=== PATIENT | female | born 1965 | race Caucasian/White ===

== ENCOUNTER → 2017-01-08 | Outpatient (CLI) | payer MEDICARE, MEDICAID ==
[~2017-01-08] MED LIST: /ASCO250TA PO; /AUGM875TA OR; ALBUTEROL INH INH; AUGMENTIN PO; CALCTAB22 PO; COLA50CA3 PO; DRISDOL PO; DUONSOL INH; LISI10TA4 PO; PERCOCET PO; PRED10TA2 OR; PRED20TA OR; ZOCOR PO
--- NOTE | 2017-01-19 01:39 | ECWPNPC ---
PATIENT NAME: ED MORENO : 1965 GENDER: FEMALE VISIT DATE: 01/08/2017 DISCHARGE DATE: 01/08/17 1541 VISIT LOCKED DATE TIME: PHYSICIAN: LEONCIO SNYDER RESOURCE: LEONCIO SNYDER REASON FOR APPOINTMENT 1. BACK HISTORY OF PRESENT ILLNESS HISTORY OF PRESENT ILLNESS: HERE FOR 3 MOS. 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 FALL RISK SCREENING: SCREENING :NO FALLS IN THE PAST YEAR CURRENT MEDICATIONS TAKING ALEVE 220 MG TABLET 1 TABLET NEEDED ORALLY EVERY 12 HRS TAKING VITAMIN D 2000 UNIT TABLET 1 TABLET ORALLY ONCE A DAY TAKING INCRUSE ELLIPTA 62.5 MCG/INH AEROSOL POWDER BREATH ACTIVATED 1 PUFF INHALATION ONCE A DAY TAKING VENTOLIN HFA 90 MCG/ACT AEROSOL SOLUTION 2 PUFFS INHALATION ONCE A DAY TAKING ZYRTEC ALLERGY 10 MG TABLET 1 TABLET ORALLY ONCE A DAY TAKING TRAMADOL HCL 50 MG TABLET 1 TABLET NEEDED [id number] EVERY 8 HRS RIGHT SIDED ABD PAIN MDD3 TAKING ZOLOFT 25 MG TABLET 1 TABLET ORALLY ONCE A DAY TAKING SINGULAIR 10 MG TABLET 1 TABLET IN THE EVENING ORALLY ONCE A DAY TAKING ASPERCREME W/LIDOCAINE 4 % CREAM EXTERNALLY DIRECTED MEDICATION LIST REVIEWED AND RECONCILED WITH THE PATIENT PAST MEDICAL HISTORY HYPERTENSION COPD - FEV1=1.23/FVC = 1.94 PER PULMONARY 05/2014 TOBACCO USE HYPERLIPIDEMIA ANXIETY DEPRESSION ALLERGIC RHINITIS HX OF HERPES SIMPLEX II PAP/MAMMO-WTW UPTODATE VITAMIN D DEFICIENCY ALLERGIES AVELOX: HIVES: ALLERGY CIPRO: HIVES: ALLERGY SYMBICORT: THRUSH: SIDE EFFECTS SOMA: INSOMNIA: SIDE EFFECTS SOCIAL HISTORY GENERAL: TOBACCO USE ARE YOU A:NONSMOKER 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 NEW PATIENT PAIN DIARY TODAY'S VISITNOTES FROM 0-10, WHAT LEVEL IS YOUR PAIN TODAY?0 PAIN CLINIC PFS, CLERGY, PUBLIC HEALTH REFERRALS PFS REFERRAL NEEDED?NO CLERGY REFERRAL NEEDED?NO PUBLIC HEALTH REFERRAL NEEDED?NO WAS THE PROVIDER NOTIFIED OF ANY PERTINENT INFO?NO PFS REFERRAL NEEDED?NO CLERGY REFERRAL NEEDED?NO PUBLIC HEALTH REFERRAL NEEDED?NO WAS THE PROVIDER NOTIFIED OF ANY PERTINENT INFO?NO REVIEW OF SYSTEMS CONSTITUTIONAL: ANY CHANGE IN YOUR MEDICAL CONDITION? NO . RECENT ILLNESS DENIES . CHILLS NO . FEVER NO . WEIGHT LOSS DENIES . INFECTION: DO YOU HAVE NEW INFECTIONS? NO . DO YOU HAVE HISTORY OF MRSA? NO . MUSCULOSKELETAL: ANY NEW PATTERNS OF PAIN OR NUMBNESS? NO . GASTROENTEROLOGY: ANY NEW CHANGE IN BOWEL CONTROL? NO . GENITOURINARY: ANY NEW CHANGE IN BLADDER CONTROL? NO . IS THERE A CHANCE YOU COULD BE ? NO . HEMATOLOGY/LYMPH: DO YOU TAKE ANY BLOOD THINNERS? (FOR EXAMPLE- COUMADIN, PLAVIX, AGGRENOX, PLATEL, PRADAXA, OR XARELTO) NO . WHEN WAS YOUR LAST DOSE? DATE: TIME: . NEUROLOGY: HAVE YOU FALLEN IN THE PAST 6 MONTHS? NO . ANY NEW EXTREMITY NUMBNESS OR WEAKNESS? NO . CARDIOLOGY: DO YOU HAVE A PACEMAKER OR DEFIBRILLATOR? NO . CHEST PAIN DENIES . SHORTNESS OF BREATH DENIES . RESPIRATORY: HAVE YOU BEEN SICK IN THE PAST WEEK? NO . FEVER NO . FLU LIKE SYMPTOMS? NO . COUGH NO, DENIES . SHORTNESS OF BREATH DENIES . INTEGUMENTARY: DO YOU HAVE ANY RASHES OR OPEN SORES? NO . ALLERGIC/IMMUNO: ARE YOU ALLERGIC TO SHELLFISH OR IV DYE? NO . ANY NEW ALLERGIES? NO . PSYCHIATRIC: DO YOU HAVE THOUGHTS OF HURTING YOURSELF OR SOMEONE ELSE? NO . ARE YOU ABUSED, NEGLECTED, OR IN AN UNSAFE ENVIRONMENT? NO . ENDOCRINOLOGY: ARE YOU DIABETIC? NO . OTHER: DO YOU NEED ANY PRESCRIPTIONS? NO . IF YES, PLEASE LIST: ____ . ANY NEW PROBLEMS WITH YOUR MEDICATIONS? NO . WHEN DID YOU LAST EAT? ____ . WHEN DID YOU LAST DRINK? ____ . WHAT DID YOU LAST DRINK? ____ . NAME OF PERSON DRIVING YOU HOME? ____ . DO YOU HAVE ANY OTHER QUESTIONS OR CONCERNS NO . REVIEWED BY: PROVIDER: LEONCIO MASSEY . VITAL SIGNS WT 175.6 LBS, HT 60 IN, BMI 34.29 INDEX, BP 181/94 DINAMAP L ARM, REPEAT BP 156/97 MANUAL BP, HR 66 /MIN, RR 16 /MIN, TEMP 97.0 F, OXYGEN SAT % 98, NA INITIALS TL 1509, REVIEWED BY: CS. EXAMINATION GENERAL EXAMINATION: LUNGS:LUNG SOUNDS ARE CLEAR. HEART:HEART RATE REGULAR. MUSCULOSKELETAL:*, MUSCLE STRENGTH TESTING 5/5 BILATERAL LWER EXTREMITIES. PALPATION: NEGATIVE FOR PAIN OVER L/S SPINE. NEGATIVE FOR PAIN OVER L/S PARASPINALS. DIAGNOSTIC: . ASSESSMENTS RIGHT-SIDED ABDOMINAL PAIN OF UNKNOWN CAUSE - R10.9 (PRIMARY) MYOFASCIAL PAIN - M79.1 PROCEDURE CODES G8730 PAIN ASSESS POS TOOL F/U PLAN DOC G8427 DOC MEDS VERIFIED W/PT OR RE FOLLOW UP F/U IN APRIL ELECTRONICALLY SIGNED BY SHILPA SEE ON 01/13/2017 AT 01:17 PM EST DISCLAIMER : THIS IS A VISIT SUMMARY EXTRACTED FROM THE [employer] CHART. IT IS NOT A COPY OF THE [employer] PROGRESS NOTE. JERED
== END ==
LOC: M PAIN 15:00
PROVIDERS: ATTEND Nurse Practitioner Family
DX: Z09 Encounter for follow-up examination after completed treatment for conditions other than malignant neoplasm (principal); G89.29 Other chronic pain; R10.9 Unspecified abdominal pain; M79.1 Myalgia; I10 Essential (primary) hypertension; J44.9 Chronic obstructive pulmonary disease, unspecified; E78.5 Hyperlipidemia, unspecified; F41.9 Anxiety disorder, unspecified; F32.9 Major depressive disorder, single episode, unspecified; J30.89 Other allergic rhinitis; E55.9 Vitamin D deficiency, unspecified; Z88.8 Allergy status to other drugs, medicaments and biological substances; Z88.5 Allergy status to narcotic agent; Z79.1 Long term (current) use of non-steroidal anti-inflammatories (NSAID); Z79.899 Other long term (current) drug therapy; Z79.891 Long term (current) use of opiate analgesic; Z86.19 Personal history of other infectious and parasitic diseases; Z87.891 Personal history of nicotine dependence

== ENCOUNTER 2017-01-10 17:25 | Emergency (ER) | payer MEDICARE, MEDICAID ==
[2017-01-10 18:02] LABS: BASO % 0.6 % (0.0-1.0); EOS # 0.2 K/mm3 (0.0-0.50); EOS % 2.4 % (0.0-3.0); LARGE UNSTAINED CELL # 0.1 K/mm3 (0.0-0.4); LYMPH % 32.6 % (24.0-44.0); MEAN CORPUSCULAR HEMOGLOBIN 31.6 pg (27.0-33.0); MEAN CORPUSCULAR VOLUME 95.7 fl (80.0-96.0); MONO # 0.2 K/mm3 (0.0-0.8); MONO % 3.3 % (0.0-5.0); NEUTROPHILS # 3.6 K/mm3 (1.8-7.7); NEUTROPHILS % 59.2 % (36.0-66.0); PLATELET COUNT, AUTOMATED 237 k/mm3 (150-450); RED CELL DISTRIBUTION WIDTH 11.6 % (11.5-14.5); WHITE BLOOD COUNT 6.2 K/mm3 (4.0-10.0)
[2017-01-10 18:30] LABS: ANION GAP 5 MEQ/L (8-16); BLOOD UREA NITROGEN 9 MG/DL (7-18); CALCIUM LEVEL 8.9 MG/DL (8.5-10.1); CARBON DIOXIDE LEVEL 32 MEQ/L (21-32); CHLORIDE LEVEL 104 MEQ/L (98-107); CREATININE FOR GFR 0.76 MG/DL (0.55-1.02); GLOMERULAR FILTRATION RATE > 60.0 (>51); GLUCOSE, FASTING 97 MG/DL (70-105); POTASSIUM SERUM 4.3 MEQ/L (3.5-5.1); SODIUM LEVEL 141 MEQ/L (136-145)
[2017-01-10] MEDS ORDERED: LOSARTAN 25 MG TAB As Ordered ONE (19:18)
--- NOTE | 2017-01-10 22:03 | EDDOCDS ---
Nurse's Notes [facility] Name: Rachel Bermudez Age: 51 yrs Sex: Female : 1965 Arrival Date: 01/10/2017 Time: 17:25 Bed 15 Private MD: Sabra Wolfe PA-C Diagnosis: Essential (primary) hypertension Presentation: 01/10 17:32 Presenting complaint: Patient states: Seen by PCP yesterday instructed to check BP at mlb1 home 187/107 at home. Adult Sepsis Screening: The patient does not have new or worsening altered mentation. Patient's respiratory rate is less than 22. Systolic blood pressure is greater than 100. Patient has a qSOFA score of 0- Negative Sepsis Screen. Suicide/Homicide risk assessment- the patient denies having any suicidal and/or homicidal ideations and does not present with any other emotional, behavioral or mental health complaints. Status: Patient is not a guest services lead or dependent. Transition of care: patient was not received from another setting of care. 17:32 Acuity: LAUREN Level 3 mlb1 17:32 Method Of Arrival: Walkin/Carried/Asstd mlb1 Triage Assessment: 17:35 General: Appears in no apparent distress, Behavior is appropriate for age, cooperative. mlb1 Pain: Denies pain. Pt Declines HIV testing. Neurological: No deficits noted. Historical: - Allergies: Ciprofloxacin (Rash); - Home Meds: 1. Symbicort 80-4.5 mcg/actuation inhalation HFAA 2 puffs 2 times per day 2. ProAir HFA 90 mcg/actuation inhalation HFAA 2 puffs every 4-6 hours as needed 3. montelukast 10 mg oral tab 1 tab once daily 4. Incruse Ellipta 62.5 mcg/actuation inhalation dsdv 1 puff once daily 5. cetirizine 10 mg oral tab 1 tab once daily - PMHx: COPD; Depression; - PSHx: Cholecystectomy; Tubal ligation; - Social history: Smoking status: Patient uses tobacco products, heavy tobacco smoker. No barriers to communication noted, The patient speaks fluent Chinese, Speaks appropriately for age. - Family history: Not pertinent. - : The pt / caregiver states he / she is not on anticoagulants. Home medication list is obtained from the patient. - Exposure Risk Screening:: None identified. Screenin:59 Screening information is obtained from the patient. Fall risk: No risks identified. kc3 Assistance ADL's: requires no assistance with activities of daily living. Abuse/DV Screen: The patient / caregiver reports he/she is: not in a situation that causes fear, pain or injury. Nutritional screening: No deficits noted. home support is adequate. 22:01 Advance Directives: Currently, there is no health care proxy. There is no active DNR kas2 order. There is no living will. There is no Power of Molder Vacuum. Assessment: 17:55 General: Appears in no apparent distress, well nourished, Behavior is appropriate for ttb age, cooperative, pleasant. Neurological: Level of Consciousness is awake, alert. Respiratory: Airway is patent Respiratory effort is even, unlabored. 18:58 General: Appears in no apparent distress, comfortable, Behavior is appropriate for age, kc3 cooperative. Pain: Denies pain. Neurological: Level of Consciousness is awake, alert, obeys commands, Oriented to person, place, time. Respiratory: Airway is patent Respiratory effort is even, unlabored. Derm: Skin is pink, warm & dry. 19:01 General: Verbal report given by Kinsey Mccoy RN. Assumed care of patient at this time.. kas2 19:13 General: Appears in no apparent distress, comfortable, well nourished, well groomed, kas2 Behavior is appropriate for age, cooperative. Pain: Denies pain. Neurological: Level of Consciousness is awake, alert, obeys commands, Oriented to person, place, time. Cardiovascular: Capillary refill < 3 seconds Heart tones S1 S2 present Rhythm is sinus rhythm No ectopy. Respiratory: Airway is patent Respiratory effort is even, unlabored, Respiratory pattern is regular, symmetrical. Derm: Skin is intact, Skin is dry, Skin is pink, warm & dry. Skin temperature is warm. 20:28 General: Patient laying in bed with at bedside. Denies pain or discomfort at kas2 this time. No apparent distress noted. Appears comfortable. Call mcdonald within reach. Will continue to monitor.. 21:48 General: Appears in no apparent distress, comfortable, well nourished, well groomed, kas2 Behavior is appropriate for age, cooperative. Pain: Denies pain. Neurological: Level of Consciousness is awake, alert, Oriented to person, place, time. Cardiovascular: Rhythm is sinus rhythm No ectopy. Respiratory: Airway is patent Respiratory effort is even, unlabored, Respiratory pattern is regular, symmetrical. Derm: Skin is intact, Skin is dry, Skin is pink, warm & dry. Skin temperature is warm. Vital Signs: 17:26 BP 194 / 97; Pulse 69; Resp 16; Temp 98.0(O); Pulse Ox 97% on R/A; Weight 79.83 kg; dem1 Height 5 ft. 2 in. (157.48 cm); Pain 0/10; 17:47 BP 171 / 83 (auto/); ttb 17:49 Pulse 70 MON; Resp 18 S; Pulse Ox 98% on R/A; ttb 18:37 BP 152 / 88 (auto/); kc3 18:38 Pulse 60 MON; Pulse Ox 98% ; kc3 19:07 BP 136 / 82 (auto/); kas2 19:07 Pulse 62 MON; Pulse Ox 96% ; kas2 19:34 BP 199 / 107 (auto/); kas2 19:34 Pulse 68 MON; Pulse Ox 94% ; kas2 19:41 BP 184 / 102; Pulse 65; Resp 18; Pain 0/10; kas2 20:07 BP 187 / 93 (auto/); kas2 20:07 Pulse 66 MON; Pulse Ox 97% ; kas2 20:29 Resp 18; Temp 97.9(O); Pain 0/10; kas2 20:37 BP 198 / 94 (auto/); kas2 20:37 Pulse 64 MON; Pulse Ox 95% ; kas2 21:07 BP 184 / 91 (auto/); kas2 21:07 Pulse 60 MON; Pulse Ox 95% ; kas2 21:37 BP 175 / 91 (auto/); kas2 21:37 Pulse 68 MON; Pulse Ox 96% ; kas2 21:56 BP 156 / 83 (auto/); kas2 21:56 Pulse 68 MON; Pulse Ox 96% ; kas2 22:01 Resp 18; Temp 97.9(O); Pain 0/10; kas2 17:26 Body Mass Index 32.19 (79.83 kg, 157.48 cm) [facility] Vitals: 17:26 Log In Time: January 10, 2017 at 17:24. [facility] ED Course: 17:26 Patient visited by Lisa Copeland. [facility] 17:26 Sabra Wolfe is Private Physician. dem1 17:26 Patient moved to Waiting dem1 17:28 Patient moved to Pre RCE dem1 17:32 Patient visited by Denis Hollingsworth, RN. mlb1 17:33 Triage Initiated mlb1 17:35 Patient visited by Denis Hollingsworth, NICOLLE. mlb1 17:38 Kinsey Bender,RN is Primary Nurse. mlb1 17:38 Ismael Cruz MD is Attending Physician. ml 17:38 Patient moved to 15 mlb1 17:39 Patient visited by Ismael Cruz MD. ml 17:54 Inserted peripheral IV: 20gauge IV in right antecubital area and blood collected. ttb Patient tolerated the procedure well. Labs drawn. (by ED staff). 17:54 D-Dimer Quant Sent. ttb 17:54 MED Profile Sent. ttb 17:54 CBC with Diff Sent. ttb 17:55 Patient visited by Blossom Oneal RN. ttb 17:55 compliance monitor on. Pulse ox on. NIBP on. ttb 17:56 Patient visited by Matti Jamison PCA. jrd 17:56 EKG done. (by ED staff). Reviewed by Ismael Cruz MD. jrd 18:09 CARDIAC MARKER PANEL Sent. kc3 18:41 UA Sent. kc3 18:42 Patient visited by Kinsey Bender RN. kc3 18:59 The patient / caregiver is instructed regarding the plan of care and ED course. kc3 19:01 Sameera JallohRN is Primary Nurse. kas2 19:14 Patient visited by Sameera Jalloh RN. kas2 19:41 Patient visited by Sameera Jalloh RN. kas2 19:43 EKG done. (by ED staff). Reviewed by Natanael Marie DO. jmv 19:58 Attending Physician role handed off by Ismael Cruz MD mm11 19:58 Natanael Marie DO is Attending Physician. mm11 20:07 Primary Nurse role handed off by Kinsey Bender,NICOLLE sls1 20:13 [facility] Payment Agreement was scanned into [employer] and attached to record. zo 20:25 Patient visited by Natanael Marie DO. mm11 20:29 Patient visited by Sameera Jalloh RN. kas2 20:39 Patient visited by Sameera Jalloh RN. kas2 21:08 Patient visited by Natanael Marie DO. 11 21:13 Patient visited by Sameera Jalloh RN. [facility] 21:48 Patient visited by Sameera Jalloh RN. [facility] 21:50 Aidan Moreiar MD is Referral Physician. mm11 22:01 Discontinued IV bleeding controlled, pressure dressing applied, No redness/swelling at [facility] site. No procedures done that require assistance. Administered Medications: 19:19 Drug: Losartan 100 mg [losartan 25 mg tablet (4 tabs)] Route: PO; [facility] Order Results: Lab Order: CBC with Diff; SPEC'M 01/10/17 17:51 Test: WHITE BLOOD COUNT; Value: 6.2; Range: 4.0-10.0; Units: K/mm3; Status: F Test: RED BLOOD COUNT; Value: 4.73; Range: 4.00-5.40; Units: M/mm3; Status: F Test: HEMOGLOBIN; Value: 15.0; Range: 12.0-16.0; Units: g/dl; Status: F Test: HEMATOCRIT; Value: 45.3; Range: 36.0-47.0; Units: %; Status: F Test: MEAN CORPUSCULAR VOLUME; Value: 95.7; Range: 80.0-96.0; Units: fl; Status: F Test: MEAN CORPUSCULAR HEMOGLOBIN; Value: 31.6; Range: 27.0-33.0; Units: pg; Status: F Test: MEAN CORPUSCULAR HGB CONC; Value: 33.0; Range: 32.0-36.5; Units: g/dl; Status: F Test: RED CELL DISTRIBUTION WIDTH; Value: 11.6; Range: 11.5-14.5; Units: %; Status: F Test: PLATELET COUNT, AUTOMATED; Value: 237; Range: 150-450; Units: k/mm3; Status: F Test: NEUTROPHILS %; Value: 59.2; Range: 36.0-66.0; Units: %; Status: F Test: LYMPH %; Value: 32.6; Range: 24.0-44.0; Units: %; Status: F Test: MONO %; Value: 3.3; Range: 0.0-5.0; Units: %; Status: F Test: EOS %; Value: 2.4; Range: 0.0-3.0; Units: %; Status: F Test: BASO %; Value: 0.6; Range: 0.0-1.0; Units: %; Status: F Test: LARGE UNSTAINED CELL %; Value: 2.0; Range: 0.0-4.0; Units: %; Status: F Test: NEUTROPHILS #; Value: 3.6; Range: 1.8-7.7; Units: K/mm3; Status: F Test: LYMPH #; Value: 2.0; Range: 1.5-4.5; Units: K/mm3; Status: F Test: MONO #; Value: 0.2; Range: 0.0-0.8; Units: K/mm3; Status: F Test: EOS #; Value: 0.2; Range: 0.0-0.50; Units: K/mm3; Status: F Test: BASO #; Value: 0.0; Range: 0.0-0.2; Units: K/mm3; Status: F Test: LARGE UNSTAINED CELL #; Value: 0.1; Range: 0.0-0.4; Units: K/mm3; Status: F Lab Order: [facility]; [facility] 01/10/17 17:51 Test: GLUCOSE, FASTING; Value: 97; Range: 70-105; Units: MG/DL; Status: F Test: BLOOD UREA NITROGEN; Value: 9; Range: 7-18; Units: MG/DL; Status: F Test: CREATININE FOR GFR; Value: 0.76; Range: 0.55-1.02; Units: MG/DL; Status: F Test: GLOMERULAR FILTRATION RATE; Value: > 60.0; Range: >51; Status: F Test: SODIUM LEVEL; Value: 141; Range: 136-145; Units: MEQ/L; Status: F Test: POTASSIUM SERUM; Value: 4.3; Range: 3.5-5.1; Units: MEQ/L; Status: F Test: CHLORIDE LEVEL; Value: 104; Range: 98-107; Units: MEQ/L; Status: F Test: CARBON DIOXIDE LEVEL; Value: 32; Range: 21-32; Units: MEQ/L; Status: F Test: ANION GAP; Value: 5; Range: 8-16; Abnormal: Below low normal; Units: MEQ/L; Status: F Test: CALCIUM LEVEL; Value: 8.9; Range: 8.5-10.1; Units: MG/DL; Status: F Test Note: ; Units are mL/min/1.73 m2 Chronic Kidney Disease Staging per NKF: Stage I & II GFR >=60 Normal to Mildly Decreased Stage III GFR 30-59 Moderately Decreased Stage IV GFR 15-29 Severely Decreased Stage V GFR <15 Very Little GFR Left ESRD GFR <15 on OFFICE SPECIALIST Lab Order: UA; SPEC'M 01/10/17 18:39 Test: APPEARANCE, URINE; Value: HAZY; Range: CLEAR; Status: F Test: COLOR, URINE; Value: YELLOW; Range: YELLOW; Status: F Test: PH,URINE; Value: 6.0; Range: 5.0-9.0; Units: UNITS; Status: F Test: SPECIFIC GRAVITY URINE AUTO; Value: 1.005; Range: 1.002-1.035; Status: F Test: PROTEIN, URINE AUTO; Value: NEGATIVE; Range: NEGATIVE; Units: mg/dL; Status: F Test: GLUCOSE, URINE (UA) AUTO; Value: NEGATIVE; Range: NEGATIVE; Units: mg/dL; Status: F Test: KETONE, URINE AUTO; Value: NEGATIVE; Range: NEGATIVE; Units: mg/dL; Status: F Test: UROBILINOGEN, URINE AUTO; Value: 0.2; Range: 0.0-2.0; Units: mg/dL; Status: F Test: BILIRUBIN, URINE AUTO; Value: NEGATIVE; Range: NEGATIVE; Status: F Test: NITRITE, URINE AUTO; Value: NEGATIVE; Range: NEGATIVE; Status: F Test: LEUKOCYTE ESTERASE, URINE AUTO; Value: 2+; Range: NEGATIVE; Abnormal: Above high normal; Status: F Test: BLOOD, URINE BLOOD; Value: NEGATIVE; Range: NEGATIVE; Status: F Test: WBC, URINE AUTO; Value: 23; Range: 0-3; Abnormal: Above high normal; Units: /HPF; Status: F Test: RBC, URINE AUTO; Value: 6; Range: 0-3; Abnormal: Above high normal; Units: /HPF; Status: F Test: BACTERIA, URINE AUTO; Value: 2+; Range: NEGATIVE; Abnormal: Above high normal; Status: F Test: SQUAMOUS EPITHELIAL CELL UR AU; Value: 5; Range: 0-6; Units: /HPF; Status: F Test: HYALINE CAST, URINE AUTO; Value: 0; Range: 0-1; Units: /LPF; Status: F Lab Order: D-Dimer Quant; [facility] 01/10/17 17:51 Test: D-DIMER QUANT; Value: 309.3; Range: <500; Units: ng/ml; Status: F Lab Order: CARDIAC MARKER PANEL; [facility] 01/10/17 17:51 Test: CPK CREATINE PHOSPHOKINASE; Value: 108; Range: 26-192; Units: U/L; Status: F Test: CK-MB VALUE MASS; Value: 1.7; Range: 0.0-3.6; Units: NG/ML; Status: F Test: MB/CK RELATIVE INDEX; Value: 1.57; Range: < OR =4; Status: F Test: TROPONIN I; Value: < 0.02; Range: < 0.10; Units: NG/ML; Status: F Test Note: ; DIAGNOSIS CRITERIA MMB ng/ml Relative Index (RI) NON-AMI < or = 5 N/A [place] ZONE > 5 < or = 4 AMI > 5 > 4 Lab Order: CARDIAC INJURY PROFILE; [facility] 01/10/17 19:43 Test: CPK CREATINE PHOSPHOKINASE; Value: 121; Range: 26-192; Units: U/L; Status: F Test: CK-MB VALUE MASS; Value: 1.7; Range: 0.0-3.6; Units: NG/ML; Status: F Test: MB/CK RELATIVE INDEX; Value: 1.40; Range: < OR =4; Status: F Test Note: ; DIAGNOSIS CRITERIA MMB ng/ml Relative Index (RI) NON-AMI < or = 5 N/A M[place]LL[place] ZONE > 5 < or = 4 AMI > 5 > 4 Lab Order: TROPONIN; [facility] 01/10/17 19:43 Test: TROPONIN I; Value: < 0.02; Range: < 0.10; Units: NG/ML; Status: F Test Note: ; Troponin I Reference Interval for Siem[employer] Hall LOCI: 99th Percentile= 0.00-0.045 ng/ml Risk Stratification: <= 0.10 ng/ml Decreased Risk for Adverse Clinical Events. 0.10-1.50 ng/ml Increased Risk for Adverse Clinical Events. Evaluation of additional criterion and/or repeat testing in 2-6 hours is suggested to rule out myocardial damage. >= 1.50 ng/ml Indicative of Myocardial Injury. Outcome: 21:50 Discharge ordered by Provider. mm11 22:01 Discharge Assessment: patient administered narcotics - no. The following High Risk [facility] Discharge criteria are identified: None. Discharged to home ambulatory, with significant other. Condition: good Condition: stable Condition: improved. No special radiology studies were completed. Property :Personal belongings accompany Pt. 22:02 Patient left the ED. [facility] Signatures: Ismael Cruz MD MD ml Denis Hollingsworth, RN RN mlb1 Patricia Marina Matthew, DO DO mm11 Angi Medeiros RN RN sls1 Lisa Copeland1 Blossom Oneal RN RN ttb Matti Jamison, PRODUCTION MACHINE SHOP SUPERVISOR PRODUCTION MACHINE SHOP SUPERVISOR jrd Kinsey Bender,NICOLLE RN kc3 Sameera Jalloh,RN RN kas2 Louis Griffin, PRODUCTION MACHINE SHOP SUPERVISOR PRODUCTION MACHINE SHOP SUPERVISOR jmv Corrections: (The following items were deleted from the chart) 17:57 17:54 TROPONIN+LAB sent. ttb EDMS 17:57 17:54 CARDIAC INJURY PROFILE+LAB sent. ttb EDMS MTDD
--- NOTE | 2017-01-10 22:03 | EDDOCDS ---
Physician Documentation [facility] Name: Rachel Bermudez Age: 51 yrs Sex: Female : 1965 Arrival Date: 01/10/2017 Time: 17:25 Bed 15 Private MD: Sabra Wolfe PA-C Disposition: 01/10/17 21:50 Discharged to Home/Self Care. Impression: Essential (primary) hypertension. - Condition is Stable. - Discharge Instructions: Hypertension, Hypertension, [id number]. - Prescriptions for losartan 100 mg Oral tablet - take 1 tablet by ORAL route once daily; 20 tablet. - Medication Reconciliation, Local Pharmacy Hours form. - Follow up: Aidan Moreira MD; When: Call to arrange an appointment; Reason: Continuance of care. - Problem is new. - Symptoms have improved. - Notes: DR MOREIRA WANTS YOU TO CALL HIS OFFICE Thursday TO BE SET UP FOR AN APPOINTMENT. RETURN TO THE ED IF YOUR SYMPTOMS RETURN OR YOU DEVELOP NEW SYMPTOMS. Historical: - Allergies: Ciprofloxacin (Rash); - Home Meds: 1. Symbicort 80-4.5 mcg/actuation inhalation HFAA 2 puffs 2 times per day 2. ProAir HFA 90 mcg/actuation inhalation HFAA 2 puffs every 4-6 hours as needed 3. montelukast 10 mg oral tab 1 tab once daily 4. Incruse Ellipta 62.5 mcg/actuation inhalation dsdv 1 puff once daily 5. cetirizine 10 mg oral tab 1 tab once daily - PMHx: COPD; Depression; - PSHx: Cholecystectomy; Tubal ligation; - Social history: Smoking status: Patient uses tobacco products, heavy tobacco smoker. No barriers to communication noted, The patient speaks fluent Welsh, Speaks appropriately for age. - Family history: Not pertinent. - : The pt / caregiver states he / she is not on anticoagulants. Home medication list is obtained from the patient. - Exposure Risk Screening:: None identified. Vital Signs: 01/10 17:26 BP 194 / 97; Pulse 69; Resp 16; Temp 98.0(O); Pulse Ox 97% on R/A; Weight 79.83 kg / dem1 176 lbs; Height 5 ft. 2 in. (157.48 cm); Pain 0/10; 17:47 BP 171 / 83 (auto/); ttb 17:49 Pulse 70 MON; Resp 18 S; Pulse Ox 98% on R/A; ttb 18:37 BP 152 / 88 (auto/); kc3 18:38 Pulse 60 MON; Pulse Ox 98% ; kc3 19:07 BP 136 / 82 (auto/); kas2 19:07 Pulse 62 MON; Pulse Ox 96% ; kas2 19:34 BP 199 / 107 (auto/); kas2 19:34 Pulse 68 MON; Pulse Ox 94% ; kas2 19:41 BP 184 / 102; Pulse 65; Resp 18; Pain 0/10; kas2 20:07 BP 187 / 93 (auto/); kas2 20:07 Pulse 66 MON; Pulse Ox 97% ; kas2 20:29 Resp 18; Temp 97.9(O); Pain 0/10; kas2 20:37 BP 198 / 94 (auto/); kas2 20:37 Pulse 64 MON; Pulse Ox 95% ; kas2 21:07 BP 184 / 91 (auto/); kas2 21:07 Pulse 60 MON; Pulse Ox 95% ; kas2 21:37 BP 175 / 91 (auto/); kas2 21:37 Pulse 68 MON; Pulse Ox 96% ; kas2 21:56 BP 156 / 83 (auto/); kas2 21:56 Pulse 68 MON; Pulse Ox 96% ; kas2 22:01 Resp 18; Temp 97.9(O); Pain 0/10; kas2 17:26 Body Mass Index 32.19 (79.83 kg, 157.48 cm) dem1 MDM: 17:39 IV Saline Lock ordered. ml 17:39 Marketing And Communications Officer/Pulse Ox/q 15 min VS ordered. ml 17:39 Rhythm Strip to chart ordered. ml 17:40 CBC with Diff Ordered. EDMS 17:40 MED Profile Ordered. EDMS 17:40 UA Ordered. EDMS 17:40 ECG WITH READING ER PHYS+CARDIAG ordered. EDMS 17:47 D-Dimer Quant Ordered. EDMS 17:49 Chest, 2 View (pa\E\lat) Ordered. EDMS 17:57 CARDIAC MARKER PANEL Ordered. EDMS 19:08 MED Profile Reviewed. ml 19:08 UA Reviewed. ml 19:08 CBC with Diff Reviewed. ml 19:08 D-Dimer Quant Reviewed. ml 19:08 CARDIAC MARKER PANEL Reviewed. ml 19:13 Losartan 100 mg PO once ordered. ml 19:15 Repeat EKG (put time details section) ordered. ml 19:15 Redraw CIP &Troponin (put time in details section) ordered. ml 19:20 Financial registration complete. zo 19:28 Redraw CIP &Troponin (put time in details section) complete. jlm 19:28 Repeat EKG (put time details section) complete. jlm 19:28 CARDIAC INJURY PROFILE Ordered. EDMS 19:28 TROPONIN Ordered. EDMS 19:29 ELECTROCARDIOGRAM ADULT ordered. EDMS 20:13 [facility] Payment Agreement was scanned into [employer] and attached to record. zo 20:58 CARDIAC INJURY PROFILE Reviewed. mm11 20:58 TROPONIN Reviewed. mm11 Administered Medications: 19:19 Drug: Losartan 100 mg [losartan 25 mg tablet (4 tabs)] Route: PO; kas2 Signatures: Dispatcher [employer] EDMS Ismael Cruz MD MD ml Denis Hollingsworth RN RN mlb1 Patricia Marina Matthew, DO mm11 Leonor Patel, Student Development Dean Unit jlm Kinsey Bender RN RN kc3 Sameera Jalloh RN RN kas2 The chart was reviewed and I authenticate all verbal orders and agree with the evaluation and treatment provided.Corrections: (The following items were deleted from the chart) 17:57 17:47 CARDIAC INJURY PROFILE+LAB ordered. EDMS EDMS 17:57 17:47 TROPONIN+LAB ordered. EDMS EDMS Attachments: 20:13 [facility] Payment Agreement zo MTDD
--- NOTE | 2017-01-11 06:34 | ECGEPIP ---
Stationary ECG Study [facility] - ED Test Date: 2017-01-10 Pat Name: ED MORENO Department: Room: - Gender: F Weeder: oscar : 1965 Requested By: Ismael Cruz Order Number: [id number] Reading MD: Ismael Cruz Measurements Intervals [place] Rate: 70 P: 75 IL: 155 QRS: 51 QRSD: 74 T: 67 QT: 365 QTc: 395 Interpretive Statements SINUS RHYTHM NONSPECIFIC T-WAVE ABNORMALITY DELAYED R WAVE PROGRESSION 04/22/13 - RATE INCREASED NONSPECIFIC ST T WAVE CHANGES Electronically Signed On 01-11-2017 6:33:46 EST by Ismael Cruz
--- NOTE | 2017-01-11 07:36 | ECGEPIP ---
Stationary ECG Study [facility] Test Date: 2017-01-10 Pat Name: ED MORENO Department: Room: - Gender: F Debt Recovery Officer: juan a : 1965 Requested By: EMERGENCY ROOM Order Number: [id number] Reading MD: Ame Vazquez Measurements Intervals [place] Rate: 68 P: 64 MT: 129 QRS: 44 QRSD: 78 T: 69 QT: 383 QTc: 407 Interpretive Statements SINUS RHYTHM NONSPECIFIC T-WAVE ABNORMALITY stable c/w earlier 01/10/17 Electronically Signed On 01-11-2017 7:36:34 EST by Ame Vazquez
--- NOTE | 2017-01-11 12:43 | REP ---
CHEST PA AND LATERAL: 01/10/2017. Comparison: 02/13/2016, 12/13/2014. Clinical history, chest pain, hypertension. Flattening of the diaphragm. Increased AP diameter, prominent retrosternal clear space consistent with COPD. Pulmonary artery hypertension noted. There is no infiltrate, effusion, atelectasis or mass. The heart, mediastinal and hilar contours unchanged without cardiomegaly. No edema or effusion. The aorta normal. Airway intact. Bones without acute compression deformity. Impression: 1. COPD with pulmonary artery hypertension without infiltrate, effusion, cardiomegaly, edema, atelectasis or mass. 2. Incidental note of right upper quadrant clips from prior cholecystectomy. Signed by Cortez Lebron MD 01/11/2017 07:18 P
--- NOTE | 2017-01-12 23:03 | EDDOCDS ---
Nurse's Notes [facility] Name: Rachel Moreno Age: 51 yrs Sex: Female : 1965 Arrival Date: 01/10/2017 Time: 17:25 Bed 15 Private MD: Sabra Wolfe PA-C Diagnosis: Essential (primary) hypertension Presentation: 01/10 17:32 Presenting complaint: Patient states: Seen by PCP yesterday instructed to check BP at mlb1 home 187/107 at home. Adult Sepsis Screening: The patient does not have new or worsening altered mentation. Patient's respiratory rate is less than 22. Systolic blood pressure is greater than 100. Patient has a qSOFA score of 0- Negative Sepsis Screen. Suicide/Homicide risk assessment- the patient denies having any suicidal and/or homicidal ideations and does not present with any other emotional, behavioral or mental health complaints. Status: Patient is not a branch service associate or dependent. Transition of care: patient was not received from another setting of care. 17:32 Acuity: LAUREN Level 3 mlb1 17:32 Method Of Arrival: Walkin/Carried/Asstd mlb1 Triage Assessment: 17:35 General: Appears in no apparent distress, Behavior is appropriate for age, cooperative. mlb1 Pain: Denies pain. Pt Declines HIV testing. Neurological: No deficits noted. Historical: - Allergies: Ciprofloxacin (Rash); - Home Meds: 1. Symbicort 80-4.5 mcg/actuation inhalation HFAA 2 puffs 2 times per day 2. ProAir HFA 90 mcg/actuation inhalation HFAA 2 puffs every 4-6 hours as needed 3. montelukast 10 mg oral tab 1 tab once daily 4. Incruse Ellipta 62.5 mcg/actuation inhalation dsdv 1 puff once daily 5. cetirizine 10 mg oral tab 1 tab once daily - PMHx: COPD; Depression; - PSHx: Cholecystectomy; Tubal ligation; - Social history: Smoking status: Patient uses tobacco products, heavy tobacco smoker. No barriers to communication noted, The patient speaks fluent Bulgarian, Speaks appropriately for age. - Family history: Not pertinent. - : The pt / caregiver states he / she is not on anticoagulants. Home medication list is obtained from the patient. - Exposure Risk Screening:: None identified. Screenin:59 Screening information is obtained from the patient. Fall risk: No risks identified. kc3 Assistance ADL's: requires no assistance with activities of daily living. Abuse/DV Screen: The patient / caregiver reports he/she is: not in a situation that causes fear, pain or injury. Nutritional screening: No deficits noted. home support is adequate. 22:01 Advance Directives: Currently, there is no health care proxy. There is no active DNR kas2 order. There is no living will. There is no Power of Floor Technician. Assessment: 17:55 General: Appears in no apparent distress, well nourished, Behavior is appropriate for ttb age, cooperative, pleasant. Neurological: Level of Consciousness is awake, alert. Respiratory: Airway is patent Respiratory effort is even, unlabored. 18:58 General: Appears in no apparent distress, comfortable, Behavior is appropriate for age, kc3 cooperative. Pain: Denies pain. Neurological: Level of Consciousness is awake, alert, obeys commands, Oriented to person, place, time. Respiratory: Airway is patent Respiratory effort is even, unlabored. Derm: Skin is pink, warm & dry. 19:01 General: Verbal report given by Kinsey Mccoy RN. Assumed care of patient at this time.. kas2 19:13 General: Appears in no apparent distress, comfortable, well nourished, well groomed, kas2 Behavior is appropriate for age, cooperative. Pain: Denies pain. Neurological: Level of Consciousness is awake, alert, obeys commands, Oriented to person, place, time. Cardiovascular: Capillary refill < 3 seconds Heart tones S1 S2 present Rhythm is sinus rhythm No ectopy. Respiratory: Airway is patent Respiratory effort is even, unlabored, Respiratory pattern is regular, symmetrical. Derm: Skin is intact, Skin is dry, Skin is pink, warm & dry. Skin temperature is warm. 20:28 General: Patient laying in bed with at bedside. Denies pain or discomfort at kas2 this time. No apparent distress noted. Appears comfortable. Call mcdonald within reach. Will continue to monitor.. 21:48 General: Appears in no apparent distress, comfortable, well nourished, well groomed, kas2 Behavior is appropriate for age, cooperative. Pain: Denies pain. Neurological: Level of Consciousness is awake, alert, Oriented to person, place, time. Cardiovascular: Rhythm is sinus rhythm No ectopy. Respiratory: Airway is patent Respiratory effort is even, unlabored, Respiratory pattern is regular, symmetrical. Derm: Skin is intact, Skin is dry, Skin is pink, warm & dry. Skin temperature is warm. Vital Signs: 17:26 BP 194 / 97; Pulse 69; Resp 16; Temp 98.0(O); Pulse Ox 97% on R/A; Weight 79.83 kg; dem1 Height 5 ft. 2 in. (157.48 cm); Pain 0/10; 17:47 BP 171 / 83 (auto/); ttb 17:49 Pulse 70 MON; Resp 18 S; Pulse Ox 98% on R/A; ttb 18:37 BP 152 / 88 (auto/); kc3 18:38 Pulse 60 MON; Pulse Ox 98% ; kc3 19:07 BP 136 / 82 (auto/); kas2 19:07 Pulse 62 MON; Pulse Ox 96% ; kas2 19:34 BP 199 / 107 (auto/); kas2 19:34 Pulse 68 MON; Pulse Ox 94% ; kas2 19:41 BP 184 / 102; Pulse 65; Resp 18; Pain 0/10; kas2 20:07 BP 187 / 93 (auto/); kas2 20:07 Pulse 66 MON; Pulse Ox 97% ; kas2 20:29 Resp 18; Temp 97.9(O); Pain 0/10; kas2 20:37 BP 198 / 94 (auto/); kas2 20:37 Pulse 64 MON; Pulse Ox 95% ; kas2 21:07 BP 184 / 91 (auto/); kas2 21:07 Pulse 60 MON; Pulse Ox 95% ; kas2 21:37 BP 175 / 91 (auto/); kas2 21:37 Pulse 68 MON; Pulse Ox 96% ; kas2 21:56 BP 156 / 83 (auto/); kas2 21:56 Pulse 68 MON; Pulse Ox 96% ; kas2 22:01 Resp 18; Temp 97.9(O); Pain 0/10; kas2 17:26 Body Mass Index 32.19 (79.83 kg, 157.48 cm) [facility] Vitals: 17:26 Log In Time: January 10, 2017 at 17:24. [facility] ED Course: 17:26 Patient visited by Lisa Copeland. [facility] 17:26 Sabra Wolfe is Private Physician. dem1 17:26 Patient moved to Waiting dem1 17:28 Patient moved to Pre RCE dem1 17:32 Patient visited by Denis Hollingsworth, RN. mlb1 17:33 Triage Initiated mlb1 17:35 Patient visited by Denis Hollingsworth, NICOLLE. mlb1 17:38 Kinsey Bender,RN is Primary Nurse. mlb1 17:38 Ismael Cruz MD is Attending Physician. ml 17:38 Patient moved to 15 mlb1 17:39 Patient visited by Ismael Cruz MD. ml 17:54 Inserted peripheral IV: 20gauge IV in right antecubital area and blood collected. ttb Patient tolerated the procedure well. Labs drawn. (by ED staff). 17:54 D-Dimer Quant Sent. ttb 17:54 MED Profile Sent. ttb 17:54 CBC with Diff Sent. ttb 17:55 Patient visited by Blossom Oneal RN. ttb 17:55 monitoring engineer on. Pulse ox on. NIBP on. ttb 17:56 Patient visited by Matti Jamison PCA. jrd 17:56 EKG done. (by ED staff). Reviewed by Ismael Cruz MD. jrd 18:09 CARDIAC MARKER PANEL Sent. kc3 18:41 UA Sent. kc3 18:42 Patient visited by Kinsey Bender RN. kc3 18:59 The patient / caregiver is instructed regarding the plan of care and ED course. kc3 19:01 Sameera JallohRN is Primary Nurse. kas2 19:14 Patient visited by Sameera Jalloh RN. kas2 19:41 Patient visited by Sameera Jalloh RN. kas2 19:43 EKG done. (by ED staff). Reviewed by Natanael Marie DO. jmv 19:58 Attending Physician role handed off by Ismael Cruz MD mm11 19:58 Natanael Marie DO is Attending Physician. mm11 20:07 Primary Nurse role handed off by Kinsey Bender,NICOLLE sls1 20:13 [facility] Payment Agreement was scanned into [employer] and attached to record. zo 20:25 Patient visited by Natanael Marie DO. mm11 20:29 Patient visited by Sameera Jalloh RN. kas2 20:39 Patient visited by Sameera Jalloh RN. kas2 21:08 Patient visited by Natanael Marie DO. mm11 21:13 Patient visited by Sameera Jalloh RN. [facility] 21:48 Patient visited by Sameera Jalloh RN. [facility] 21:50 Aidan Moreira MD is Referral Physician. mm11 22:01 Discontinued IV bleeding controlled, pressure dressing applied, No redness/swelling at [facility] site. No procedures done that require assistance. 01/11 06:44 EKG-ADULT Returned. EDMS 07:41 ELECTROCARDIOGRAM ADULT Returned. EDMS 12:47 Chest, 2 View (pa\E\lat) Returned. EDMS 18:35 T-Sheet-- Draft Copy was scanned into [employer] and attached to record. klr 01/12 10:13 ECG/EKG was scanned into [employer] and attached to record. gb 10:14 Trend VS was scanned into [employer] and attached to record. gb Administered Medications: 01/10 19:19 Drug: Losartan 100 mg [losartan 25 mg tablet (4 tabs)] Route: PO; [facility] Attachments: 10:14 Trend VS gb Order Results: Lab Order: CBC with Diff; SPEC'M 01/10/17 17:51 Test: WHITE BLOOD COUNT; Value: 6.2; Range: 4.0-10.0; Units: K/mm3; Status: F Test: RED BLOOD COUNT; Value: 4.73; Range: 4.00-5.40; Units: M/mm3; Status: F Test: HEMOGLOBIN; Value: 15.0; Range: 12.0-16.0; Units: g/dl; Status: F Test: HEMATOCRIT; Value: 45.3; Range: 36.0-47.0; Units: %; Status: F Test: MEAN CORPUSCULAR VOLUME; Value: 95.7; Range: 80.0-96.0; Units: fl; Status: F Test: MEAN CORPUSCULAR HEMOGLOBIN; Value: 31.6; Range: 27.0-33.0; Units: pg; Status: F Test: MEAN CORPUSCULAR HGB CONC; Value: 33.0; Range: 32.0-36.5; Units: g/dl; Status: F Test: RED CELL DISTRIBUTION WIDTH; Value: 11.6; Range: 11.5-14.5; Units: %; Status: F Test: PLATELET COUNT, AUTOMATED; Value: 237; Range: 150-450; Units: k/mm3; Status: F Test: NEUTROPHILS %; Value: 59.2; Range: 36.0-66.0; Units: %; Status: F Test: LYMPH %; Value: 32.6; Range: 24.0-44.0; Units: %; Status: F Test: MONO %; Value: 3.3; Range: 0.0-5.0; Units: %; Status: F Test: EOS %; Value: 2.4; Range: 0.0-3.0; Units: %; Status: F Test: BASO %; Value: 0.6; Range: 0.0-1.0; Units: %; Status: F Test: LARGE UNSTAINED CELL %; Value: 2.0; Range: 0.0-4.0; Units: %; Status: F Test: NEUTROPHILS #; Value: 3.6; Range: 1.8-7.7; Units: K/mm3; Status: F Test: LYMPH #; Value: 2.0; Range: 1.5-4.5; Units: K/mm3; Status: F Test: MONO #; Value: 0.2; Range: 0.0-0.8; Units: K/mm3; Status: F Test: EOS #; Value: 0.2; Range: 0.0-0.50; Units: K/mm3; Status: F Test: BASO #; Value: 0.0; Range: 0.0-0.2; Units: K/mm3; Status: F Test: LARGE UNSTAINED CELL #; Value: 0.1; Range: 0.0-0.4; Units: K/mm3; Status: F Lab Order: MED Profile; SPEC'M 01/10/17 17:51 Test: GLUCOSE, FASTING; Value: 97; Range: 70-105; Units: MG/DL; Status: F Test: BLOOD UREA NITROGEN; Value: 9; Range: 7-18; Units: MG/DL; Status: F Test: CREATININE FOR GFR; Value: 0.76; Range: 0.55-1.02; Units: MG/DL; Status: F Test: GLOMERULAR FILTRATION RATE; Value: > 60.0; Range: >51; Status: F Test: SODIUM LEVEL; Value: 141; Range: 136-145; Units: MEQ/L; Status: F Test: POTASSIUM SERUM; Value: 4.3; Range: 3.5-5.1; Units: MEQ/L; Status: F Test: CHLORIDE LEVEL; Value: 104; Range: 98-107; Units: MEQ/L; Status: F Test: CARBON DIOXIDE LEVEL; Value: 32; Range: 21-32; Units: MEQ/L; Status: F Test: ANION GAP; Value: 5; Range: 8-16; Abnormal: Below low normal; Units: MEQ/L; Status: F Test: CALCIUM LEVEL; Value: 8.9; Range: 8.5-10.1; Units: MG/DL; Status: F Test Note: ; Units are mL/min/1.73 m2 Chronic Kidney Disease Staging per NKF: Stage I & II GFR >=60 Normal to Mildly Decreased Stage III GFR 30-59 Moderately Decreased Stage IV GFR 15-29 Severely Decreased Stage V GFR <15 Very Little GFR Left ESRD GFR <15 on [employer] Lab Order: UA; SPEC'M 01/10/17 18:39 Test: APPEARANCE, URINE; Value: HAZY; Range: CLEAR; Status: F Test: COLOR, URINE; Value: YELLOW; Range: YELLOW; Status: F Test: PH,URINE; Value: 6.0; Range: 5.0-9.0; Units: UNITS; Status: F Test: SPECIFIC GRAVITY URINE AUTO; Value: 1.005; Range: 1.002-1.035; Status: F Test: PROTEIN, URINE AUTO; Value: NEGATIVE; Range: NEGATIVE; Units: mg/dL; Status: F Test: GLUCOSE, URINE (UA) AUTO; Value: NEGATIVE; Range: NEGATIVE; Units: mg/dL; Status: F Test: KETONE, URINE AUTO; Value: NEGATIVE; Range: NEGATIVE; Units: mg/dL; Status: F Test: UROBILINOGEN, URINE AUTO; Value: 0.2; Range: 0.0-2.0; Units: mg/dL; Status: F Test: BILIRUBIN, URINE AUTO; Value: NEGATIVE; Range: NEGATIVE; Status: F Test: NITRITE, URINE AUTO; Value: NEGATIVE; Range: NEGATIVE; Status: F Test: LEUKOCYTE ESTERASE, URINE AUTO; Value: 2+; Range: NEGATIVE; Abnormal: Above high normal; Status: F Test: BLOOD, URINE BLOOD; Value: NEGATIVE; Range: NEGATIVE; Status: F Test: WBC, URINE AUTO; Value: 23; Range: 0-3; Abnormal: Above high normal; Units: /HPF; Status: F Test: RBC, URINE AUTO; Value: 6; Range: 0-3; Abnormal: Above high normal; Units: /HPF; Status: F Test: BACTERIA, URINE AUTO; Value: 2+; Range: NEGATIVE; Abnormal: Above high normal; Status: F Test: SQUAMOUS EPITHELIAL CELL UR AU; Value: 5; Range: 0-6; Units: /HPF; Status: F Test: HYALINE CAST, URINE AUTO; Value: 0; Range: 0-1; Units: /LPF; Status: F Lab Order: D-Dimer Quant; [facility] 01/10/17 17:51 Test: D-DIMER QUANT; Value: 309.3; Range: <500; Units: ng/ml; Status: F Lab Order: CARDIAC MARKER PANEL; [facility] 01/10/17 17:51 Test: CPK CREATINE PHOSPHOKINASE; Value: 108; Range: 26-192; Units: U/L; Status: F Test: CK-MB VALUE MASS; Value: 1.7; Range: 0.0-3.6; Units: NG/ML; Status: F Test: MB/CK RELATIVE INDEX; Value: 1.57; Range: < OR =4; Status: F Test: TROPONIN I; Value: < 0.02; Range: < 0.10; Units: NG/ML; Status: F Test Note: ; DIAGNOSIS CRITERIA MMB ng/ml Relative Index (RI) NON-AMI < or = 5 N/A [place]LLAN ZONE > 5 < or = 4 AMI > 5 > 4 Lab Order: CARDIAC INJURY PROFILE; [facility] 01/10/17 19:43 Test: CPK CREATINE PHOSPHOKINASE; Value: 121; Range: 26-192; Units: U/L; Status: F Test: CK-MB VALUE MASS; Value: 1.7; Range: 0.0-3.6; Units: NG/ML; Status: F Test: MB/CK RELATIVE INDEX; Value: 1.40; Range: < OR =4; Status: F Test Note: ; DIAGNOSIS CRITERIA MMB ng/ml Relative Index (RI) NON-AMI < or = 5 N/A M[place]LELLAN ZONE > 5 < or = 4 AMI > 5 > 4 Lab Order: TROPONIN; [facility] 01/10/17 19:43 Test: TROPONIN I; Value: < 0.02; Range: < 0.10; Units: NG/ML; Status: F Test Note: ; Troponin I Reference Interval for Siemens [employer] LOCI: 99th Percentile= 0.00-0.045 ng/ml Risk Stratification: <= 0.10 ng/ml Decreased Risk for Adverse Clinical Events. 0.10-1.50 ng/ml Increased Risk for Adverse Clinical Events. Evaluation of additional criterion and/or repeat testing in 2-6 hours is suggested to rule out myocardial damage. >= 1.50 ng/ml Indicative of Myocardial Injury. Radiology Order: EKG-ADULT Test: EKG-ADULT REASON FOR EXAMINATION: htn; Stationary ECG Study; [facility] - ED; ; Test Date: 2017-01-10; Pat Name: RACHEL MOREON Department:; Room: -; Gender: F Multimedia Producer: oscar; : 1965 Requested By: Ismael Cruz; Order Number: [id number] Reading MD: Ismael Cruz; Measurements; Intervals Mobile; Rate: 70 P: 75; ND: 155 QRS: 51; QRSD: 74 T: 67; QT: 365; QTc: 395; Interpretive Statements; SINUS RHYTHM; NONSPECIFIC T-WAVE ABNORMALITY; DELAYED R WAVE PROGRESSION; ; 04/22/13 - RATE INCREASED; NONSPECIFIC ST T WAVE CHANGES; Electronically Signed On 01-11-2017 6:33:46 EST by Ismael Cruz; Radiology Order: Chest, 2 View (pa\E\lat) Test: Chest, 2 View (pa\E\lat) REASON FOR EXAMINATION: chest pain, htn; CHEST PA AND LATERAL: 01/10/2017.; ; Comparison: 02/13/2016, 12/13/2014.; ; Clinical history, chest pain, hypertension.; ; Flattening of the diaphragm. Increased AP diameter, prominent retrosternal clear; space consistent with COPD. Pulmonary artery hypertension noted. There is no; infiltrate, effusion, atelectasis or mass. The heart, mediastinal and hilar; contours unchanged without cardiomegaly. No edema or effusion. The aorta; normal. Airway intact. Bones without acute compression deformity.; ; Impression:; ; 1. COPD with pulmonary artery hypertension without infiltrate, effusion,; cardiomegaly, edema, atelectasis or mass.; ; 2. Incidental note of right upper quadrant clips from prior cholecystectomy.; ; ; Signed by; Cotrez Lebron MD 01/11/2017 07:18 P; Radiology Order: ELECTROCARDIOGRAM ADULT Test: ELECTROCARDIOGRAM ADULT REASON FOR EXAMINATION: REPEAT; Stationary ECG Study; [facility]; ; Test Date: 2017-01-10; Pat Name: RACHEL MORENO Department:; Room: -; Gender: F Multimedia Producer: juan a; : 1965 Requested By: EMERGENCY ROOM; Order Number: [id number] Reading MD: Ame Vazquez; Measurements; Intervals Mobile; Rate: 68 P: 64; ND: 129 QRS: 44; QRSD: 78 T: 69; QT: 383; QTc: 407; Interpretive Statements; SINUS RHYTHM; NONSPECIFIC T-WAVE ABNORMALITY; stable c/w earlier 01/10/17; Electronically Signed On 01-11-2017 7:36:34 EST by Ame Vazquez; Outcome: 01/10 21:50 Discharge ordered by Provider. mm11 22:01 Discharge Assessment: patient administered narcotics - no. The following High Risk kas2 Discharge criteria are identified: None. Discharged to home ambulatory, with significant other. Condition: good Condition: stable Condition: improved. No special radiology studies were completed. Property :Personal belongings accompany Pt. 22:02 Patient left the ED. kas2 Signatures: Dispatcher [employer] EDMS Ismael Cruz MD MD ml Barnhardt, Gloria, Reg Denis Kwong RN RN mlb1 Patricia Marina Matthew, DO DO mm11 Angi Medeiros RN RN sls1 Lisa Copeland Teresa RN RN ttb Matti Jamison, CAIN SALES REPRESENTATIVE SALES MANAGER jrd Kinsey Bender RN RN kc3 Sameera JallohRN RN kas2 Vibha Bailey Jose, SALES REPRESENTATIVE SALES MANAGER SALES REPRESENTATIVE SALES MANAGER jmv Corrections: (The following items were deleted from the chart) 17:57 17:54 TROPONIN+LAB sent. ttb EDMS 17:57 17:54 CARDIAC INJURY PROFILE+LAB sent. ttb EDMS Chart Complete MTDD
--- NOTE | 2017-01-12 23:03 | EDDOCDS ---
Physician Documentation [facility] Name: Rachel Bermudez Age: 51 yrs Sex: Female : 1965 Arrival Date: 01/10/2017 Time: 17:25 Bed 15 Private MD: Sabra Wolfe PA-C Disposition: 01/10/17 21:50 Discharged to Home/Self Care. Impression: Essential (primary) hypertension. - Condition is Stable. - Discharge Instructions: Hypertension, Hypertension, [id number]. - Prescriptions for losartan 100 mg Oral tablet - take 1 tablet by ORAL route once daily; 20 tablet. - Medication Reconciliation, Local Pharmacy Hours form. - Follow up: Aidan Moreira MD; When: Call to arrange an appointment; Reason: Continuance of care. - Problem is new. - Symptoms have improved. - Notes: DR MOREIRA WANTS YOU TO CALL HIS OFFICE Thursday TO BE SET UP FOR AN APPOINTMENT. RETURN TO THE ED IF YOUR SYMPTOMS RETURN OR YOU DEVELOP NEW SYMPTOMS. Historical: - Allergies: Ciprofloxacin (Rash); - Home Meds: 1. Symbicort 80-4.5 mcg/actuation inhalation HFAA 2 puffs 2 times per day 2. ProAir HFA 90 mcg/actuation inhalation HFAA 2 puffs every 4-6 hours as needed 3. montelukast 10 mg oral tab 1 tab once daily 4. Incruse Ellipta 62.5 mcg/actuation inhalation dsdv 1 puff once daily 5. cetirizine 10 mg oral tab 1 tab once daily - PMHx: COPD; Depression; - PSHx: Cholecystectomy; Tubal ligation; - Social history: Smoking status: Patient uses tobacco products, heavy tobacco smoker. No barriers to communication noted, The patient speaks fluent Serbian, Speaks appropriately for age. - Family history: Not pertinent. - : The pt / caregiver states he / she is not on anticoagulants. Home medication list is obtained from the patient. - Exposure Risk Screening:: None identified. Vital Signs: 01/10 17:26 BP 194 / 97; Pulse 69; Resp 16; Temp 98.0(O); Pulse Ox 97% on R/A; Weight 79.83 kg / dem1 176 lbs; Height 5 ft. 2 in. (157.48 cm); Pain 0/10; 17:47 BP 171 / 83 (auto/); ttb 17:49 Pulse 70 MON; Resp 18 S; Pulse Ox 98% on R/A; ttb 18:37 BP 152 / 88 (auto/); kc3 18:38 Pulse 60 MON; Pulse Ox 98% ; kc3 19:07 BP 136 / 82 (auto/); kas2 19:07 Pulse 62 MON; Pulse Ox 96% ; kas2 19:34 BP 199 / 107 (auto/); kas2 19:34 Pulse 68 MON; Pulse Ox 94% ; kas2 19:41 BP 184 / 102; Pulse 65; Resp 18; Pain 0/10; kas2 20:07 BP 187 / 93 (auto/); kas2 20:07 Pulse 66 MON; Pulse Ox 97% ; kas2 20:29 Resp 18; Temp 97.9(O); Pain 0/10; kas2 20:37 BP 198 / 94 (auto/); kas2 20:37 Pulse 64 MON; Pulse Ox 95% ; kas2 21:07 BP 184 / 91 (auto/); kas2 21:07 Pulse 60 MON; Pulse Ox 95% ; kas2 21:37 BP 175 / 91 (auto/); kas2 21:37 Pulse 68 MON; Pulse Ox 96% ; kas2 21:56 BP 156 / 83 (auto/); kas2 21:56 Pulse 68 MON; Pulse Ox 96% ; kas2 22:01 Resp 18; Temp 97.9(O); Pain 0/10; kas2 17:26 Body Mass Index 32.19 (79.83 kg, 157.48 cm) dem1 MDM: 17:39 IV Saline Lock ordered. ml 17:39 Relay Tester Helper/Pulse Ox/q 15 min VS ordered. ml 17:39 Rhythm Strip to chart ordered. ml 17:40 CBC with Diff Ordered. EDMS 17:40 MED Profile Ordered. EDMS 17:40 UA Ordered. EDMS 17:40 ECG WITH READING ER PHYS+CARDIAG ordered. EDMS 17:47 D-Dimer Quant Ordered. EDMS 17:49 Chest, 2 View (pa\E\lat) Ordered. EDMS 17:57 CARDIAC MARKER PANEL Ordered. EDMS 19:08 MED Profile Reviewed. ml 19:08 UA Reviewed. ml 19:08 CBC with Diff Reviewed. ml 19:08 D-Dimer Quant Reviewed. ml 19:08 CARDIAC MARKER PANEL Reviewed. ml 19:13 Losartan 100 mg PO once ordered. ml 19:15 Repeat EKG (put time details section) ordered. ml 19:15 Redraw CIP &Troponin (put time in details section) ordered. ml 19:20 Financial registration complete. zo 19:28 Redraw CIP &Troponin (put time in details section) complete. jlm 19:28 Repeat EKG (put time details section) complete. jlm 19:28 CARDIAC INJURY PROFILE Ordered. EDMS 19:28 TROPONIN Ordered. EDMS 19:29 ELECTROCARDIOGRAM ADULT ordered. EDMS 20:13 [facility] Payment Agreement was scanned into [employer] and attached to record. zo 20:58 CARDIAC INJURY PROFILE Reviewed. mm11 20:58 TROPONIN Reviewed. mm11 01/11 18:35 T-Sheet-- Draft Copy was scanned into [employer] and attached to record. klr 01/12 10:13 ECG/EKG was scanned into [employer] and attached to record. gb 10:14 Trend VS was scanned into [employer] and attached to record. gb Administered Medications: 01/10 19:19 Drug: Losartan 100 mg [losartan 25 mg tablet (4 tabs)] Route: PO; kas2 Signatures: Dispatcher [employer] EDMS [facility] MD MD ml Drea Ontiveros, Reg Reg gb Denis Hollingsworth RN RN mlb1 Patricia Marina Matthew, DO DO mm11 Leonor Patel, Supply Tech Unit jlm Kinsey Bender RN RN kc3 Sameera Jalloh RN RN kas2 Vibha Bailey The chart was reviewed and I authenticate all verbal orders and agree with the evaluation and treatment provided.Corrections: (The following items were deleted from the chart) 17:57 17:47 CARDIAC INJURY PROFILE+LAB ordered. EDMS EDMS 17:57 17:47 TROPONIN+LAB ordered. EDMS EDMS Attachments: 20:13 [facility] Payment Agreement zo 01/11 18:35 T-Sheet-- Draft Copy klr 01/12 10:13 ECG/EKG gb Chart Complete MTDD
--- NOTE | 2017-01-12 23:03 | EDDOCDS ---
Physician Documentation [facility] Name: Rachel Bermudez Age: 51 yrs Sex: Female : 1965 Arrival Date: 01/10/2017 Time: 17:25 Bed 15 Private MD: Sabra Wolef PA-C Disposition: 01/10/17 21:50 Discharged to Home/Self Care. Impression: Essential (primary) hypertension. - Condition is Stable. - Discharge Instructions: Hypertension, Hypertension, [id number]. - Prescriptions for losartan 100 mg Oral tablet - take 1 tablet by ORAL route once daily; 20 tablet. - Medication Reconciliation, Local Pharmacy Hours form. - Follow up: Aidan Moreira MD; When: Call to arrange an appointment; Reason: Continuance of care. - Problem is new. - Symptoms have improved. - Notes: DR MOREIRA WANTS YOU TO CALL HIS OFFICE Thursday TO BE SET UP FOR AN APPOINTMENT. RETURN TO THE ED IF YOUR SYMPTOMS RETURN OR YOU DEVELOP NEW SYMPTOMS. Historical: - Allergies: Ciprofloxacin (Rash); - Home Meds: 1. Symbicort 80-4.5 mcg/actuation inhalation HFAA 2 puffs 2 times per day 2. ProAir HFA 90 mcg/actuation inhalation HFAA 2 puffs every 4-6 hours as needed 3. montelukast 10 mg oral tab 1 tab once daily 4. Incruse Ellipta 62.5 mcg/actuation inhalation dsdv 1 puff once daily 5. cetirizine 10 mg oral tab 1 tab once daily - PMHx: COPD; Depression; - PSHx: Cholecystectomy; Tubal ligation; - Social history: Smoking status: Patient uses tobacco products, heavy tobacco smoker. No barriers to communication noted, The patient speaks fluent [place], Speaks appropriately for age. - Family history: Not pertinent. - : The pt / caregiver states he / she is not on anticoagulants. Home medication list is obtained from the patient. - Exposure Risk Screening:: None identified. Vital Signs: 01/10 17:26 BP 194 / 97; Pulse 69; Resp 16; Temp 98.0(O); Pulse Ox 97% on R/A; Weight 79.83 kg / dem1 176 lbs; Height 5 ft. 2 in. (157.48 cm); Pain 0/10; 17:47 BP 171 / 83 (auto/); ttb 17:49 Pulse 70 MON; Resp 18 S; Pulse Ox 98% on R/A; ttb 18:37 BP 152 / 88 (auto/); kc3 18:38 Pulse 60 MON; Pulse Ox 98% ; kc3 19:07 BP 136 / 82 (auto/); kas2 19:07 Pulse 62 MON; Pulse Ox 96% ; kas2 19:34 BP 199 / 107 (auto/); kas2 19:34 Pulse 68 MON; Pulse Ox 94% ; kas2 19:41 BP 184 / 102; Pulse 65; Resp 18; Pain 0/10; kas2 20:07 BP 187 / 93 (auto/); kas2 20:07 Pulse 66 MON; Pulse Ox 97% ; kas2 20:29 Resp 18; Temp 97.9(O); Pain 0/10; kas2 20:37 BP 198 / 94 (auto/); kas2 20:37 Pulse 64 MON; Pulse Ox 95% ; kas2 21:07 BP 184 / 91 (auto/); kas2 21:07 Pulse 60 MON; Pulse Ox 95% ; kas2 21:37 BP 175 / 91 (auto/); kas2 21:37 Pulse 68 MON; Pulse Ox 96% ; kas2 21:56 BP 156 / 83 (auto/); kas2 21:56 Pulse 68 MON; Pulse Ox 96% ; kas2 22:01 Resp 18; Temp 97.9(O); Pain 0/10; kas2 17:26 Body Mass Index 32.19 (79.83 kg, 157.48 cm) dem1 MDM: 17:39 IV Saline Lock ordered. ml 17:39 Addiction Professional/Pulse Ox/q 15 min VS ordered. ml 17:39 Rhythm Strip to chart ordered. ml 17:40 CBC with Diff Ordered. EDMS 17:40 MED Profile Ordered. EDMS 17:40 UA Ordered. EDMS 17:40 ECG WITH READING ER PHYS+CARDIAG ordered. EDMS 17:47 D-Dimer Quant Ordered. EDMS 17:49 Chest, 2 View (pa\E\lat) Ordered. EDMS 17:57 CARDIAC MARKER PANEL Ordered. EDMS 19:08 MED Profile Reviewed. ml 19:08 UA Reviewed. ml 19:08 CBC with Diff Reviewed. ml 19:08 D-Dimer Quant Reviewed. ml 19:08 CARDIAC MARKER PANEL Reviewed. ml 19:13 Losartan 100 mg PO once ordered. ml 19:15 Repeat EKG (put time details section) ordered. ml 19:15 Redraw CIP &Troponin (put time in details section) ordered. ml 19:20 Financial registration complete. zo 19:28 Redraw CIP &Troponin (put time in details section) complete. jlm 19:28 Repeat EKG (put time details section) complete. jlm 19:28 CARDIAC INJURY PROFILE Ordered. EDMS 19:28 TROPONIN Ordered. EDMS 19:29 ELECTROCARDIOGRAM ADULT ordered. EDMS 20:13 [facility] Payment Agreement was scanned into [employer] and attached to record. zo 20:58 CARDIAC INJURY PROFILE Reviewed. mm11 20:58 TROPONIN Reviewed. mm11 01/11 18:35 T-Sheet-- Draft Copy was scanned into [employer] and attached to record. klr 01/12 10:13 ECG/EKG was scanned into [employer] and attached to record. gb 10:14 Trend VS was scanned into [employer] and attached to record. gb Administered Medications: 01/10 19:19 Drug: Losartan 100 mg [losartan 25 mg tablet (4 tabs)] Route: PO; kas2 Signatures: Dispatcher [employer] EDMS [facility] Kendall MD MD ml Drea Ontiveros, Reg Reg gb Denis Hollingsworth RN RN mlb1 Patricia Marina Matthew, DO DO mm11 Leonor Patel, Intellectual Property Manager Unit jlm Kinsey Bender RN RN kc3 Sameera Jalloh RN RN kas2 Vibha Bailey The chart was reviewed and I authenticate all verbal orders and agree with the evaluation and treatment provided.Corrections: (The following items were deleted from the chart) 17:57 17:47 CARDIAC INJURY PROFILE+LAB ordered. EDMS EDMS 17:57 17:47 TROPONIN+LAB ordered. EDMS EDMS Attachments: 20:13 [facility] Payment Agreement zo 01/11 18:35 T-Sheet-- Draft Copy klr 01/12 10:13 ECG/EKG gb Chart Complete MTDD
== END 2017-01-10 22:02 | disposition home or self-care (01) ==
LOC: M ED 17:25
DX: I10 Essential (primary) hypertension (principal); J44.9 Chronic obstructive pulmonary disease, unspecified; F32.9 Major depressive disorder, single episode, unspecified; F17.210 Nicotine dependence, cigarettes, uncomplicated; Z79.51 Long term (current) use of inhaled steroids; Z88.1 Allergy status to other antibiotic agents; Z79.899 Other long term (current) drug therapy

== ENCOUNTER → 2017-01-14 | Outpatient (CLI) | payer MEDICARE, MEDICAID ==
--- NOTE | 2017-01-14 10:09 | REPMRS ---
Patient History The patient states she had a clinical breast exam in Patient is postmenopausal. No known family history of cancer. Digital Woman Screen Mammo: January 14, 2017 - Exam #: [id number] Bilateral CC and MLO view(s) were taken. Technologist: Theresa Minaya, Technologist Prior study comparison: January 07, 2016, digital woman screen mammo performed at [facility]. January 04, 2015, digital woman screen mammo performed at [facility]. FINDINGS: There are scattered fibroglandular densities. There has been no change in the appearance of the mammogram from the prior studies. There is a mild amount of residual fibroglandular tissue which is fairly symmetric. There is no interval development of dominant mass, architectural distortion, or clustered microcalcification suggestive of malignancy. ASSESSMENT: BI-RADS/ACR category 1 mammogram. Negative. Recommendation Routine screening mammogram in 1 year (for women over age 40). This mammogram was interpreted with the aid of an FDA-approved computer-aided dectection system. Electronically Signed By: Agusto Hendrix MD 01/14/17 [id number]
== END ==
LOC: M WHC 08:42
PROVIDERS: ATTEND Nurse Practitioner Family
DX: Z12.31 Encounter for screening mammogram for malignant neoplasm of breast (principal); Z78.0 Asymptomatic menopausal state; Z12.4 Encounter for screening for malignant neoplasm of cervix; Z95.2 Presence of prosthetic heart valve; Z12.12 Encounter for screening for malignant neoplasm of rectum
CPT/HCPCS: 82270; G0101; G0123; G0202

== ENCOUNTER → 2017-01-14 | Outpatient (REF) | payer MEDICARE, MEDICAID | LOC: M SFHCWAGY 09:15 | PROVIDERS: ATTEND Nurse Practitioner Family | DX: Z12.4 Encounter for screening for malignant neoplasm of cervix (principal); N95.2 Postmenopausal atrophic vaginitis ==

== ENCOUNTER → 2017-02-25 | Outpatient (REF) | payer MEDICARE, MEDICAID | LOC: M LAB REF 09:34 | PROVIDERS: ATTEND Family Medicine | DX: R10.9 Unspecified abdominal pain (principal) ==

== ENCOUNTER → 2017-05-07 | Outpatient (CLI) | payer MEDICARE, MEDICAID ==
--- NOTE | 2017-05-07 23:03 | ECWPNPC ---
PATIENT NAME: ED MORENO : 1965 GENDER: FEMALE VISIT DATE: 05/07/2017 DISCHARGE DATE: 05/07/17 1037 VISIT LOCKED DATE TIME: PHYSICIAN: LEONCIO SNYDER RESOURCE: LEONCIO SNYDER REASON FOR APPOINTMENT 1. BACK HISTORY OF PRESENT ILLNESS HISTORY OF PRESENT ILLNESS: HERE FOR 3 MOS. 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 PAIN THE PATIENT DESCRIBES THE PAIN... THE PATIENT DESCRIBES THE PAIN... FALL RISK SCREENING: SCREENING :NO FALLS IN THE PAST YEAR CURRENT MEDICATIONS TAKING ALEVE 220 MG TABLET 1 TABLET NEEDED ORALLY EVERY 12 HRS TAKING VITAMIN D 2000 UNIT TABLET 1 TABLET ORALLY ONCE A DAY TAKING ZOLOFT 25 MG TABLET 1 TABLET ORALLY ONCE A DAY TAKING ASPERCREME W/LIDOCAINE 4 % CREAM EXTERNALLY DIRECTED TAKING BLOOD PRESSURE MONITOR/M CUFF - MISCELLANEOUS DIRECTED _ I10, DAILY PRESSURES TAKING SPIRIVA RESPIMAT 2.5 MCG/ACT AEROSOL SOLUTION 2 PUFFS INHALATION ONCE A DAY TAKING VENTOLIN HFA 90 MCG/ACT AEROSOL SOLUTION 2 PUFFS INHALATION NEEDED FOR RESCUE INHALER TAKING MUCINEX 600 MG TABLET EXTENDED RELEASE 12 HOUR 1 TABLET NEEDED ORALLY EVERY 12 HRS TAKING LOSARTAN POTASSIUM 100 MG TABLET 1 TABLET ORALLY ONCE A DAY TAKING AMLODIPINE BESYLATE 2.5 MG TABLET 1 TABLET ORALLY ONCE A DAY TAKING ASPIRIN 81 MG TABLET CHEWABLE 1 TABLET ORALLY ONCE A DAY TAKING ZYRTEC ALLERGY 10 MG TABLET 1 TABLET ORALLY ONCE A DAY TAKING SINGULAIR 10 MG TABLET 1 TABLET IN THE EVENING ORALLY ONCE A DAY TAKING NYSTATIN 579123 UNIT/GM CREAM 1 APPLICATION TO AFFECTED AREA EXTERNALLY TWICE A DAY TO GRION RASH TAKING PREDNISONE 20 MG TABLET 2 TABLET ORALLY ONCE A DAY TAKING DOXYCYCLINE MONOHYDRATE 100 MG CAPSULE 1 CAPSULE ORALLY EVERY 12 HRS MEDICATION LIST REVIEWED AND RECONCILED WITH THE PATIENT PAST MEDICAL HISTORY HYPERTENSION COPD - FEV1=1.23/FVC = 1.94 PER PULMONARY 05/2014 TOBACCO USE HYPERLIPIDEMIA ANXIETY DEPRESSION ALLERGIC RHINITIS HX OF HERPES SIMPLEX II PAP/MAMMO-WTW UPTODATE VITAMIN D DEFICIENCY ALLERGIES AVELOX: HIVES: ALLERGY CIPRO: HIVES: ALLERGY SYMBICORT: THRUSH: SIDE EFFECTS SOMA: INSOMNIA: SIDE EFFECTS REVIEW OF SYSTEMS CONSTITUTIONAL: ANY CHANGE IN YOUR MEDICAL CONDITION? NO . CHILLS NO . FEVER NO . INFECTION: DO YOU HAVE NEW INFECTIONS? NO . DO YOU HAVE HISTORY OF MRSA? NO . MUSCULOSKELETAL: ANY NEW PATTERNS OF PAIN OR NUMBNESS? NO . GASTROENTEROLOGY: ANY NEW CHANGE IN BOWEL CONTROL? NO . GENITOURINARY: ANY NEW CHANGE IN BLADDER CONTROL? NO . IS THERE A CHANCE YOU COULD BE ? NO . HEMATOLOGY/LYMPH: DO YOU TAKE ANY BLOOD THINNERS? (FOR EXAMPLE- COUMADIN, PLAVIX, AGGRENOX, PLATEL, PRADAXA, OR XARELTO) NO . WHEN WAS YOUR LAST DOSE? DATE: TIME: . NEUROLOGY: HAVE YOU FALLEN IN THE PAST 6 MONTHS? NO . ANY NEW EXTREMITY NUMBNESS OR WEAKNESS? NO . CARDIOLOGY: DO YOU HAVE A PACEMAKER OR DEFIBRILLATOR? NO . RESPIRATORY: HAVE YOU BEEN SICK IN THE PAST WEEK? NO . FEVER NO . FLU LIKE SYMPTOMS? NO . COUGH NO . INTEGUMENTARY: DO YOU HAVE ANY RASHES OR OPEN SORES? NO . ALLERGIC/IMMUNO: ARE YOU ALLERGIC TO SHELLFISH OR IV DYE? NO . ANY NEW ALLERGIES? NO . PSYCHIATRIC: DO YOU HAVE THOUGHTS OF HURTING YOURSELF OR SOMEONE ELSE? NO . ARE YOU ABUSED, NEGLECTED, OR IN AN UNSAFE ENVIRONMENT? NO . ENDOCRINOLOGY: ARE YOU DIABETIC? NO . OTHER: DO YOU NEED ANY PRESCRIPTIONS? NO . IF YES, PLEASE LIST: ____ . ANY NEW PROBLEMS WITH YOUR MEDICATIONS? NO . WHEN DID YOU LAST EAT? ____ . WHEN DID YOU LAST DRINK? ____ . WHAT DID YOU LAST DRINK? ____ . NAME OF PERSON DRIVING YOU HOME? ____ . DO YOU HAVE ANY OTHER QUESTIONS OR CONCERNS NO . REVIEWED BY: PROVIDER: LEONCIO MASSEY . VITAL SIGNS WT 176.0 LBS, HT 60 IN, BMI 34.37 INDEX, BP 133/68 MM HG, HR 72 /MIN, RR 16 /MIN, TEMP 98.6 F, OXYGEN SAT % 94%, NA INITIALS TL 1018, REVIEWED BY: LILY. EXAMINATION GENERAL EXAMINATION: LUNGS:LUNG SOUNDS ARE CLEAR. HEART:HEART RATE REGULAR. MUSCULOSKELETAL:*, MUSCLE STRENGTH TESTING 5/5 BILATERAL LWER EXTREMITIES. PALPATION: NEGATIVE FOR PAIN OVER L/S SPINE. NEGATIVE FOR PAIN OVER L/S PARASPINALS. DIAGNOSTIC: . 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 RECOMMEND REMOVING ALL THROW RUGS. 2. RECOMMEND NIGHT LIGHTS 3. RECOMMEND WEARING RUBBER SOLED SHOES AND TO NOT GO BAREFOOT. 4.. ADVISED TO CHANGE POSITION SLOWLY FROM SUPINE TO STANDING TO AVOID DIZZINESS. 5. ADVISED TO USE ASSISTIVE DEVICE SUCH CANE OR WALKER 6. USE [employer] SERVICES OR KEEP PORTABLE PHONE READILY AVAILABLE, # 226 TOBACCO USE SCREENING/INTERVENTION: PATIENT CURRENTLY USED TOBACCO. WAS OFFERED SMOKING CESSATION FOR GUIDANCE IN QUITTING THROUGH THE [facility] QUITS PROGRAM AND THE [facility] CESSATION PROGRAM. , #128 - SCREENING BMI AND F/U PLAN IN : BMI ABOVE NORMAL TODAY. DISCUSSED WITH PATIENT NUTRITIONAL FOOD CHOICES TO ASSIST WITH WEIGHT LOSS. RECCOMMENDED REDUCING SALT, SUGAR, SODA INTAKE. RECOMMEND INCREASE ACTIVITY TO INCLUDE WALKING ON A REGULAR BASIS. PROFESSIONAL NUTRITIONAL NUTRITIONAL GUIDANCE WAS OFFERED AND WAS DECLINED. , PATIENT WAS ADVISED TO START A WALKING PROGRAM TO STRENGTHEN LUMBAR PARASPINAL MUSCLES AND IMPROVE MOBILITY. THEY WERE ADVISED THAT THIS WILL IMPROVE WEIGHT LOSS AND ALSO DEPRESSION/FIBROMYALGIA SYMPTOMS. ADVISED TO WALK 10 MINUTES EVERY OTHER DAY ON A FLAT SURFACE. EMPHASIZED THE IMPORTANCE OF DOING THIS CONSISTANTLY AND NOT SPORATICALLY TO AVOID INJURY. STRONG ADVISED NOT TO DO MORE THAN 10 MINUTES EVERY OTHER DSY FOR THE FIRST 4 WEEKS. PROCEDURE CODES FA211 ESTABILISHED PATIENT [facility] FACILITY CHARGE G4773 PAIN ASSESS POS TOOL F/U PLAN DOC G8427 DOC MEDS VERIFIED W/PT OR RE DISPOSITION & COMMUNICATION FOLLOW UP PATIENT WILL CALL IF NECESSARY ELECTRONICALLY SIGNED BY SHILPA SEE ON 05/07/2017 AT 01:39 PM EDT DISCLAIMER : THIS IS A VISIT SUMMARY EXTRACTED FROM THE [employer] CHART. IT IS NOT A COPY OF THE [employer] PROGRESS NOTE. JERED
== END | disposition home or self-care (01) ==
LOC: M PAIN 10:00
PROVIDERS: ATTEND Nurse Practitioner Family
DX: G89.29 Other chronic pain (principal); M47.816 Spondylosis without myelopathy or radiculopathy, lumbar region; I10 Essential (primary) hypertension; J44.9 Chronic obstructive pulmonary disease, unspecified; E78.5 Hyperlipidemia, unspecified; F41.9 Anxiety disorder, unspecified; F33.9 Major depressive disorder, recurrent, unspecified; J30.89 Other allergic rhinitis; E55.9 Vitamin D deficiency, unspecified; Z79.899 Other long term (current) drug therapy; Z79.82 Long term (current) use of aspirin; Z79.52 Long term (current) use of systemic steroids; Z88.8 Allergy status to other drugs, medicaments and biological substances; F17.210 Nicotine dependence, cigarettes, uncomplicated

== ENCOUNTER → 2017-06-05 | Outpatient (REF) | payer MEDICARE, MEDICAID ==
[2017-06-05 10:45] LABS: MEAN CORPUSCULAR HGB CONC 33.7 g/dl (32.0-36.5); MEAN CORPUSCULAR VOLUME 97.8 fl (80.0-96.0); WHITE BLOOD COUNT 4.9 K/mm3 (4.0-10.0)
[2017-06-05 10:57] LABS: ALBUMIN 3.3 GM/DL (3.2-5.2); ALBUMIN/GLOBULIN RATIO 1.06 (1.00-1.93); ALKALINE PHOSPHATASE 145 U/L (45-117); ALT/SGPT 18 U/L (12-78); ANION GAP 4 MEQ/L (8-16); AST/SGOT 22 U/L (15-37); BILIRUBIN,TOTAL 0.3 MG/DL (0.2-1.0); BLOOD UREA NITROGEN 7 MG/DL (7-18); CALCIUM LEVEL 9.2 MG/DL (8.5-10.1); CARBON DIOXIDE LEVEL 31 MEQ/L (21-32); CHLORIDE LEVEL 104 MEQ/L (98-107); CHOLESTEROL LEVEL 197 MG/DL (<200); CREATININE FOR GFR 0.58 MG/DL (0.55-1.02); GLOMERULAR FILTRATION RATE > 60.0 (>51); GLUCOSE, FASTING 85 MG/DL (70-105); SODIUM LEVEL 139 MEQ/L (136-145); TOTAL PROTEIN 6.4 GM/DL (6.4-8.2); TRIGLYCERIDES LEVEL 150 MG/DL (<150)
== END ==
LOC: M LABDRAW1 08:25
PROVIDERS: ATTEND Physician Assistant
DX: J44.9 Chronic obstructive pulmonary disease, unspecified (principal); E78.2 Mixed hyperlipidemia; E55.9 Vitamin D deficiency, unspecified

== ENCOUNTER → 2017-06-23 | Outpatient (CLI) | payer MEDICARE, MEDICAID ==
--- NOTE | 2017-06-23 16:40 | REP ---
CHEST, TWO VIEWS: COMPARISON: 01/10/2017 There is no evidence of acute infiltrate. No pleural effusion is seen. The heart is normal in size. The mediastinal silhouette is unremarkable. The visualized osseous structures are intact. There are mild degenerative changes of the spine. IMPRESSION: No acute pulmonary disease. Signed by Agusto Hendrix MD 06/25/2017 05:47 P
== END ==
LOC: M WUC 15:14
PROVIDERS: ATTEND Physician Assistant
DX: J18.9 Pneumonia, unspecified organism (principal)
CPT/HCPCS: 71020; G0463

== ENCOUNTER 2017-12-03 07:14 | Day surgery (SDC) | payer MEDICARE, MEDICAID ==
[2017-12-03] MEDS: NS 1,000 ML IV (07:34)
[2017-12-03] MEDS ORDERED: PROPOFOL 200 MG/20 ML VIAL As Ordered ×2 (08:38→09:14)
== END 2017-12-03 10:00 | disposition home or self-care (01) ==
LOC: M OPP 07:14
DX: Z12.11 Encounter for screening for malignant neoplasm of colon (principal); K57.30 Diverticulosis of large intestine without perforation or abscess without bleeding; D12.3 Benign neoplasm of transverse colon; D12.2 Benign neoplasm of ascending colon; D12.5 Benign neoplasm of sigmoid colon; Z86.010 Personal history of colon polyps; I10 Essential (primary) hypertension; E78.5 Hyperlipidemia, unspecified; J44.9 Chronic obstructive pulmonary disease, unspecified; F17.210 Nicotine dependence, cigarettes, uncomplicated; F32.9 Major depressive disorder, single episode, unspecified; F41.9 Anxiety disorder, unspecified; Z79.899 Other long term (current) drug therapy; Z88.8 Allergy status to other drugs, medicaments and biological substances; Z78.0 Asymptomatic menopausal state; Z87.19 Personal history of other diseases of the digestive system
CPT/HCPCS: 45385

== ENCOUNTER 2017-12-22 10:13 | Observation (INO) | payer MEDICARE, MEDICAID ==
[2017-12-22] MEDS ORDERED: ROPIvacaine 0.5% 30 ML INJECTION (J2795 PER 1MG) ×5 (10:14)
[2017-12-22] MEDS ORDERED: EPINEPHrine INJ 1 MG/ML 1ML AMP ×5 (10:14)
[2017-12-22] MEDS ORDERED: dexameTHASONE 10 MG/1 ML VIAL PRES.FREE (J1100) ×5 (10:14)
[2017-12-22] MEDS: LR 1,000 ML IV ×15 (10:45→21:00)
[2017-12-22] MEDS ORDERED: fentaNYL 100 MCG/2 ML INJECTION (J3010) As Ordered ×5 (14:30)
[2017-12-22] MEDS ORDERED: MIDAZOLAM INJ 2 MG/2 ML VIAL (J2250) As Ordered ×10 (14:31→14:50)
[2017-12-22] MEDS ORDERED: ROCURONIUM BROMIDE 50 MG/5 ML VIAL As Ordered ×10 (14:49→16:52)
[2017-12-22] MEDS ORDERED: fentaNYL 250 MCG/5 ML INJECTION (J3010) As Ordered ×5 (14:49)
[2017-12-22] MEDS ORDERED: ONDANSETRON 4MG/2ML VIAL (J2405) As Ordered ×5 (14:49)
[2017-12-22] MEDS ORDERED: dexameTHASONE 4 MG/ML 1ML VIAL (J1100) As Ordered ×10 (14:49)
[2017-12-22] MEDS ORDERED: PROPOFOL 200 MG/20 ML VIAL As Ordered ×5 (14:49)
[2017-12-22] MEDS ORDERED: LIDOCAINE 2% INJ 100 MG/5 ML SDV (FOR ANES.) As Ordered ×5 (14:49)
[2017-12-22] MEDS: fentaNYL 100 MCG/2 ML INJECTION (J3010) IV ×5 (14:50)
[2017-12-22] MEDS: MIDAZOLAM INJ 2 MG/2 ML VIAL (J2250) IV ×5 (14:51)
[2017-12-22] MEDS ORDERED: SEVOFLURANE INHAL SOLN 250 ML BTL As Ordered ×10 (15:02)
[2017-12-22] MEDS ORDERED: PHENYLephrine HCL 500 MCG/5 ML (100MCG/ML) SYRINGE (J2370) As Ordered ×10 (16:43)
[2017-12-22] MEDS ORDERED: PHENYLEPHRINE INJ 10MG/ML VIAL (J2370) As Ordered ×5 (17:34)
[2017-12-22] MEDS ORDERED: NEOSTIGMINE 10 MG/10 ML VIAL (J2710) As Ordered ×5 (19:10)
[2017-12-22] MEDS ORDERED: GLYCOPYRROLATE INJ 0.2 MG/ML 2 ML VIAL As Ordered ×10 (19:10→19:18)
[2017-12-22] MEDS ORDERED: fentaNYL 100 MCG/2 ML INJECTION (J3010) IV ×5 (20:45)
[2017-12-22] MEDS ORDERED: ONDANSETRON 4MG/2ML VIAL (J2405) IV ×10 (20:45→21:00)
[2017-12-22] MEDS ORDERED: FLEET ENEMA PR ×5 (21:00)
[2017-12-22] MEDS ORDERED: oxyCODONE 5MG TAB PO ×5 (21:00)
[2017-12-22] MEDS ORDERED: IPRATROPIUM 0.5MG/ALBUTEROL 2.5MG INH SOL UD 3ML (DUONEB)(J7620) INH ×5 (21:00)
[2017-12-22] MEDS ORDERED: ceFAZolin 1GM INJ (J0690 PER 500MG) As Ordered ×5 (22:01)
[2017-12-22] MEDS: CEFAZOLIN SOD 1 GM in APPROPRIATE DILUENT 1 EA IV ×5 (22:09)
[2017-12-23] MEDS: ACETAMINOPHEN 500 MG TAB PO ×10 (00:13→06:15)
[2017-12-23] MEDS: CEFAZOLIN SOD 1 GM in APPROPRIATE DILUENT 1 EA IV ×5 (04:49)
[2017-12-23] MEDS: LR 1,000 ML IV ×5 (06:17)
[2017-12-23] MEDS ORDERED: ROPIvacaine 0.5% 30 ML INJECTION (J2795 PER 1MG) ×5 (08:25)
[2017-12-23] MEDS ORDERED: EPINEPHrine INJ 1 MG/ML 1ML AMP ×5 (08:25)
[2017-12-23] MEDS ORDERED: dexameTHASONE 10 MG/1 ML VIAL PRES.FREE (J1100) ×5 (08:25)
[2017-12-23] MEDS: HEPARIN SOD (PORCINE) 5000 UNITS/ML VIAL SQ ×5 (08:47)
[2017-12-23] MEDS: MORPHINE 4 MG/ML 1ML SYRINGE IV ×2 (08:48→12:27)
[2017-12-23] MEDS: MORPHINE 4 MG/ML 1ML VIAL IV ×4 (08:48→12:27)
[2017-12-23] MEDS: MORPHINE 4 MG/ML 1ML VIAL (J2270) IV ×4 (08:48→12:27)
[2017-12-23] MEDS: oxyCODONE 5MG TAB PO ×10 (09:09→12:28)
== END 2017-12-23 14:59 | disposition home or self-care (01) ==
LOC: M SDC 10:13 → M MSPAV 11:45 → M SDC 01-20 14:34 → M MSPAV 01-20 14:34 → M SDC 11:45 → M MSPAV 10:14
DX: S42.211A Unspecified displaced fracture of surgical neck of right humerus, initial encounter for closed fracture (principal); S46.011A Strain of muscle(s) and tendon(s) of the rotator cuff of right shoulder, initial encounter; S46.119A Strain of muscle, fascia and tendon of long head of biceps, unspecified arm, initial encounter; W19.XXXA Unspecified fall, initial encounter; Y92.89 Other specified places as the place of occurrence of the external cause; Y99.9 Unspecified external cause status; I10 Essential (primary) hypertension; E78.5 Hyperlipidemia, unspecified; J44.9 Chronic obstructive pulmonary disease, unspecified; Z79.51 Long term (current) use of inhaled steroids; Z79.899 Other long term (current) drug therapy; Z88.8 Allergy status to other drugs, medicaments and biological substances; F17.210 Nicotine dependence, cigarettes, uncomplicated; M47.816 Spondylosis without myelopathy or radiculopathy, lumbar region; E66.09 Other obesity due to excess calories; Y93.9 Activity, unspecified
CPT/HCPCS: 23630

== ENCOUNTER → 2018-03-18 | Outpatient (REF) | payer MEDICARE, MEDICAID ==
[2018-03-18 19:37] LABS: ALBUMIN 3.9 GM/DL (3.2-5.2); ALBUMIN/GLOBULIN RATIO 1.05 (1.00-1.93); ALKALINE PHOSPHATASE 150 U/L (45-117); ALT/SGPT 19 U/L (12-78); ANION GAP 4 MEQ/L (8-16); AST/SGOT 15 U/L (7-37); BILIRUBIN,TOTAL 0.2 MG/DL (0.2-1.0); BLOOD UREA NITROGEN 5 MG/DL (7-18); CALCIUM LEVEL 9.4 MG/DL (8.5-10.1); CARBON DIOXIDE LEVEL 35 MEQ/L (21-32); CHLORIDE LEVEL 102 MEQ/L (98-107); CREATININE FOR GFR 0.63 MG/DL (0.55-1.30); GLOMERULAR FILTRATION RATE > 60.0 (>51); GLUCOSE, FASTING 71 MG/DL (70-100); POTASSIUM SERUM 4.6 MEQ/L (3.5-5.1); SODIUM LEVEL 141 MEQ/L (136-145); TOTAL PROTEIN 7.6 GM/DL (6.4-8.2)
[2018-03-18 20:14] LABS: CREATININE, URINE 22.4 MG/DL; MALB URINE SIEMENS 5.1 MG/L; MAU/CREAT RATIO 22.7 MCG/MG (0.0-30.0)
[2018-03-19 08:49] LABS: TOTAL 25(OH) VITAMIN D 42.4 NG/ML (30.0-100.0)
== END ==
LOC: M SFHCADAM 14:04
DX: E55.9 Vitamin D deficiency, unspecified (principal); I10 Essential (primary) hypertension
CPT/HCPCS: 80053

== ENCOUNTER 2018-05-11 16:57 | Emergency (ER) | payer MEDICARE, MEDICAID ==
[2018-05-11] MEDS: ALBUTEROL SULFATE 2.5 MG/0.5 ML INH NEB SOLN INH (18:00)
[2018-05-11] MEDS: ALBUTEROL SULFATE 2.5 MG/0.5 ML INH NEB SOLN NEB (20:23)
[2018-05-11] MEDS: ACETAMINOPHEN TAB 650MG DOSE (2X325MG) PO (20:23)
== END 2018-05-11 21:27 | disposition home or self-care (01) ==
LOC: M ED 16:57
DX: J44.9 Chronic obstructive pulmonary disease, unspecified (principal); I10 Essential (primary) hypertension; E78.5 Hyperlipidemia, unspecified; F33.9 Major depressive disorder, recurrent, unspecified; F41.9 Anxiety disorder, unspecified; F17.200 Nicotine dependence, unspecified, uncomplicated; Z98.890 Other specified postprocedural states; Z88.1 Allergy status to other antibiotic agents; Z79.899 Other long term (current) drug therapy

== ENCOUNTER 2018-05-13 13:00 | Inpatient (IN) | payer MEDICARE, MEDICAID ==
[2018-05-13] MEDS: NICOTINE 21MG/24HR 1 EA TRANSDERMAL TD (09:00)
[2018-05-13 13:54] LABS: BASO % 0.4 % (0.0-1.0); HEMATOCRIT 46.3 % (36.0-47.0); HEMOGLOBIN 15.1 g/dl (12.0-15.5); IMMATURE GRANULOCYTE % 0.2 % (0-3.0); LYMPH # 0.9 10^3/uL (1.5-4.5); LYMPH % 18.3 % (24.0-44.0); MEAN CORPUSCULAR HEMOGLOBIN 31.4 pg (27.0-33.0); MEAN CORPUSCULAR HGB CONC 32.6 g/dl (32.0-36.5); MEAN CORPUSCULAR VOLUME 96.3 fl (80.0-96.0); MONO # 0.3 10^3/uL (0.0-0.8); MONO % 5.8 % (0.0-5.0); NEUTROPHILS # 3.5 10^3/uL (1.8-7.7); NEUTROPHILS % 75.3 % (36.0-66.0); PLATELET COUNT, AUTOMATED 177 10^3/uL (150-450); RED BLOOD COUNT 4.81 10^6/uL (4.00-5.40); RED CELL DISTRIBUTION WIDTH 12.4 % (11.5-14.5); WHITE BLOOD COUNT 4.6 10^3/uL (4.0-10.0)
[2018-05-13] MEDS: IPRATROPIUM 0.5MG/ALBUTEROL 2.5MG INH SOL UD 3ML (DUONEB)(J7620) NEB ×3 (13:59→23:57)
[2018-05-13] MEDS: methylPREDNISolone INJ 125 MG/2 ML VIAL (J2930) IV (16:37)
[2018-05-13] MEDS: cefTRIAXone SOD 1 GM in D5W MINI-BAG PLUS 50 ML IV (16:37)
[2018-05-13] MEDS: DOXYCYCLINE HYCLATE 100 MG in D5W MINI-BAG PLUS 100 ML IV (17:42)
[2018-05-13] MEDS: ALBUTEROL SULFATE 2.5 MG/0.5 ML INH NEB SOLN NEB ×2 (19:57→23:57)
[2018-05-13] MEDS: rOPINIRole 0.25 MG TAB(REQUIP) PO (21:38)
[2018-05-13] MEDS: NYSTATIN CREAM 15 GM TOP (21:39)
[2018-05-14] MEDS: methylPREDNISolone INJ 125 MG/2 ML VIAL (J2930) IV ×3 (01:17→16:06)
[2018-05-14] MEDS: DOXYCYCLINE HYCLATE 100 MG in D5W MINI-BAG PLUS 100 ML IV ×2 (05:27→17:40)
[2018-05-14 07:00] LABS: HEMATOCRIT 41.9 % (36.0-47.0); HEMOGLOBIN 13.7 g/dl (12.0-15.5); MEAN CORPUSCULAR HEMOGLOBIN 31.1 pg (27.0-33.0); MEAN CORPUSCULAR HGB CONC 32.7 g/dl (32.0-36.5); PLATELET COUNT, AUTOMATED 165 10^3/uL (150-450); RED BLOOD COUNT 4.41 10^6/uL (4.00-5.40); RED CELL DISTRIBUTION WIDTH 12.5 % (11.5-14.5); WHITE BLOOD COUNT 3.4 10^3/uL (4.0-10.0)
[2018-05-14 07:25] LABS: ANION GAP 6 MEQ/L (8-16); BLOOD UREA NITROGEN 11 MG/DL (7-18); CALCIUM LEVEL 8.7 MG/DL (8.5-10.1); CARBON DIOXIDE LEVEL 30 MEQ/L (21-32); CHLORIDE LEVEL 100 MEQ/L (98-107); GLOMERULAR FILTRATION RATE > 60.0 (>51); GLUCOSE, FASTING 200 MG/DL (70-100); POTASSIUM SERUM 4.2 MEQ/L (3.5-5.1); SODIUM LEVEL 136 MEQ/L (136-145)
[2018-05-14] MEDS: IPRATROPIUM 0.5MG/ALBUTEROL 2.5MG INH SOL UD 3ML (DUONEB)(J7620) NEB ×3 (08:32→20:18)
[2018-05-14] MEDS: NICOTINE 21MG/24HR 1 EA TRANSDERMAL TD (09:55)
[2018-05-14] MEDS: SERTRALINE HCL 25 MG TABLET PO (09:55)
[2018-05-14] MEDS: MONTELUKAST 10 MG TAB PO (09:56)
[2018-05-14] MEDS: CETIRIZINE (ZyrTEC) 10 MG TAB PO (09:56)
[2018-05-14] MEDS: VALSARTAN 80 MG TAB (DIOVAN) PO (09:56)
[2018-05-14] MEDS: ENOXAPARIN 40 MG/0.4 ML SYRINGE (J1650) SC (09:57)
[2018-05-14] MEDS: NYSTATIN CREAM 15 GM TOP ×2 (09:58→20:37)
[2018-05-14] MEDS: cefTRIAXone SOD 1 GM in D5W MINI-BAG PLUS 50 ML IV (16:06)
[2018-05-14] MEDS: rOPINIRole 0.25 MG TAB(REQUIP) PO (20:37)
[2018-05-15] MEDS: methylPREDNISolone INJ 125 MG/2 ML VIAL (J2930) IV ×2 (00:54→12:15)
[2018-05-15] MEDS: IPRATROPIUM 0.5MG/ALBUTEROL 2.5MG INH SOL UD 3ML (DUONEB)(J7620) NEB ×4 (01:13→20:02)
[2018-05-15] MEDS: ACETAMINOPHEN TAB 650MG DOSE (2X325MG) PO ×2 (01:40→12:14)
[2018-05-15] MEDS: DOXYCYCLINE HYCLATE 100 MG in D5W MINI-BAG PLUS 100 ML IV ×2 (05:38→18:58)
[2018-05-15 06:27] LABS: HEMATOCRIT 40.2 % (36.0-47.0); HEMOGLOBIN 13.4 g/dl (12.0-15.5); MEAN CORPUSCULAR HEMOGLOBIN 31.8 pg (27.0-33.0); MEAN CORPUSCULAR HGB CONC 33.3 g/dl (32.0-36.5); MEAN CORPUSCULAR VOLUME 95.3 fl (80.0-96.0); PLATELET COUNT, AUTOMATED 226 10^3/uL (150-450); RED BLOOD COUNT 4.22 10^6/uL (4.00-5.40); RED CELL DISTRIBUTION WIDTH 12.7 % (11.5-14.5); WHITE BLOOD COUNT 8.2 10^3/uL (4.0-10.0)
[2018-05-15 06:33] LABS: ADD MANUAL DIFFER YES; DIFF SLIDE NUMBER 57; POSITIVE MORPH POS FLAG
[2018-05-15 07:38] LABS: ATYPICAL LYMPH 2 % (0-5); BANDS 2 % (< 11); LYMPHOCYTES 9 % (16-52); NEUTROPHILS 87 % (35-75)
[2018-05-15 07:39] LABS: ANISOCYTOSIS 1+; PLATELET ESTIMATE NORMAL (NORMAL); POLYCHROMASIA 1+
[2018-05-15] MEDS: NICOTINE 21MG/24HR 1 EA TRANSDERMAL TD (08:50)
[2018-05-15] MEDS: ENOXAPARIN 40 MG/0.4 ML SYRINGE (J1650) SC (08:50)
[2018-05-15] MEDS: CETIRIZINE (ZyrTEC) 10 MG TAB PO (08:52)
[2018-05-15] MEDS: SERTRALINE HCL 25 MG TABLET PO (08:52)
[2018-05-15] MEDS: MONTELUKAST 10 MG TAB PO (08:52)
[2018-05-15] MEDS: VALSARTAN 80 MG TAB (DIOVAN) PO (08:52)
[2018-05-15] MEDS: NYSTATIN CREAM 15 GM TOP ×2 (08:58→21:40)
[2018-05-15] MEDS: SODIUM CHLORIDE 0.9% NASAL GEL 15GM (AYR) (08:58)
[2018-05-15] MEDS: cefTRIAXone SOD 1 GM in D5W MINI-BAG PLUS 50 ML IV (17:25)
[2018-05-15] MEDS: rOPINIRole 0.25 MG TAB(REQUIP) PO (21:40)
[2018-05-16] MEDS: IPRATROPIUM 0.5MG/ALBUTEROL 2.5MG INH SOL UD 3ML (DUONEB)(J7620) NEB ×4 (01:15→21:14)
[2018-05-16] MEDS: methylPREDNISolone INJ 125 MG/2 ML VIAL (J2930) IV ×2 (01:48→13:08)
[2018-05-16] MEDS: DOXYCYCLINE HYCLATE 100 MG in D5W MINI-BAG PLUS 100 ML IV (04:59)
[2018-05-16 07:11] LABS: HEMATOCRIT 38.9 % (36.0-47.0); HEMOGLOBIN 12.9 g/dl (12.0-15.5); MEAN CORPUSCULAR HEMOGLOBIN 31.7 pg (27.0-33.0); MEAN CORPUSCULAR HGB CONC 33.2 g/dl (32.0-36.5); MEAN CORPUSCULAR VOLUME 95.6 fl (80.0-96.0); PLATELET COUNT, AUTOMATED 203 10^3/uL (150-450); RED BLOOD COUNT 4.07 10^6/uL (4.00-5.40); WHITE BLOOD COUNT 8.3 10^3/uL (4.0-10.0)
[2018-05-16 07:55] LABS: ANION GAP 9 MEQ/L (8-16); BLOOD UREA NITROGEN 14 MG/DL (7-18); CALCIUM LEVEL 9.1 MG/DL (8.5-10.1); CARBON DIOXIDE LEVEL 32 MEQ/L (21-32); CHLORIDE LEVEL 100 MEQ/L (98-107); CREATININE FOR GFR 0.86 MG/DL (0.55-1.30); GLOMERULAR FILTRATION RATE > 60.0 (>51); GLUCOSE, FASTING 131 MG/DL (70-100); POTASSIUM SERUM 4.3 MEQ/L (3.5-5.1); SODIUM LEVEL 141 MEQ/L (136-145)
[2018-05-16] MEDS: ENOXAPARIN 40 MG/0.4 ML SYRINGE (J1650) SC (09:01)
[2018-05-16] MEDS: NICOTINE 21MG/24HR 1 EA TRANSDERMAL TD (09:02)
[2018-05-16] MEDS: VALSARTAN 80 MG TAB (DIOVAN) PO (09:03)
[2018-05-16] MEDS: MONTELUKAST 10 MG TAB PO (09:03)
[2018-05-16] MEDS: CETIRIZINE (ZyrTEC) 10 MG TAB PO (09:04)
[2018-05-16] MEDS: SERTRALINE HCL 25 MG TABLET PO (09:04)
[2018-05-16] MEDS: NYSTATIN CREAM 15 GM TOP ×2 (09:05→20:22)
[2018-05-16] MEDS: SODIUM CHLORIDE 0.9% NASAL GEL 15GM (AYR) (09:05)
[2018-05-16] MEDS: guaiFENesin ER 600 MG TAB PO ×2 (13:08→20:21)
[2018-05-16] MEDS: rOPINIRole 0.25 MG TAB(REQUIP) PO (20:21)
[2018-05-17] MEDS: methylPREDNISolone INJ 125 MG/2 ML VIAL (J2930) IV (00:34)
[2018-05-17] MEDS: IPRATROPIUM 0.5MG/ALBUTEROL 2.5MG INH SOL UD 3ML (DUONEB)(J7620) NEB ×4 (02:59→20:41)
[2018-05-17] MEDS: NICOTINE 21MG/24HR 1 EA TRANSDERMAL TD (08:01)
[2018-05-17] MEDS: ENOXAPARIN 40 MG/0.4 ML SYRINGE (J1650) SC (08:02)
[2018-05-17] MEDS: VALSARTAN 80 MG TAB (DIOVAN) PO (08:04)
[2018-05-17] MEDS: SERTRALINE HCL 25 MG TABLET PO (08:05)
[2018-05-17] MEDS: guaiFENesin ER 600 MG TAB PO ×2 (08:05→22:05)
[2018-05-17] MEDS: MONTELUKAST 10 MG TAB PO (08:05)
[2018-05-17] MEDS: CETIRIZINE (ZyrTEC) 10 MG TAB PO (08:05)
[2018-05-17] MEDS: NYSTATIN CREAM 15 GM TOP ×2 (08:06→22:06)
[2018-05-17 08:15] LABS: HEMATOCRIT 40.5 % (36.0-47.0); HEMOGLOBIN 13.2 g/dl (12.0-15.5); MEAN CORPUSCULAR HEMOGLOBIN 31.1 pg (27.0-33.0); MEAN CORPUSCULAR HGB CONC 32.6 g/dl (32.0-36.5); MEAN CORPUSCULAR VOLUME 95.3 fl (80.0-96.0); PLATELET COUNT, AUTOMATED 227 10^3/uL (150-450); RED BLOOD COUNT 4.25 10^6/uL (4.00-5.40); WHITE BLOOD COUNT 6.5 10^3/uL (4.0-10.0)
[2018-05-17] MEDS: predniSONE 20 MG TAB PO ×2 (10:02→22:06)
[2018-05-17] MEDS: rOPINIRole 0.25 MG TAB(REQUIP) PO (22:05)
[2018-05-18] MEDS: IPRATROPIUM 0.5MG/ALBUTEROL 2.5MG INH SOL UD 3ML (DUONEB)(J7620) NEB ×2 (01:11→08:44)
[2018-05-18 07:19] LABS: HEMATOCRIT 39.6 % (36.0-47.0); HEMOGLOBIN 13.1 g/dl (12.0-15.5); MEAN CORPUSCULAR HEMOGLOBIN 31.4 pg (27.0-33.0); MEAN CORPUSCULAR HGB CONC 33.1 g/dl (32.0-36.5); PLATELET COUNT, AUTOMATED 237 10^3/uL (150-450); RED BLOOD COUNT 4.17 10^6/uL (4.00-5.40); RED CELL DISTRIBUTION WIDTH 12.9 % (11.5-14.5)
[2018-05-18] MEDS: ENOXAPARIN 40 MG/0.4 ML SYRINGE (J1650) SC (08:16)
[2018-05-18] MEDS: VALSARTAN 80 MG TAB (DIOVAN) PO (08:17)
[2018-05-18] MEDS: NICOTINE 21MG/24HR 1 EA TRANSDERMAL TD (08:17)
[2018-05-18] MEDS: guaiFENesin ER 600 MG TAB PO (08:18)
[2018-05-18] MEDS: predniSONE 20 MG TAB PO (08:18)
[2018-05-18] MEDS: SERTRALINE HCL 25 MG TABLET PO (08:18)
[2018-05-18] MEDS: CETIRIZINE (ZyrTEC) 10 MG TAB PO (08:18)
[2018-05-18] MEDS: MONTELUKAST 10 MG TAB PO (08:18)
[2018-05-18] MEDS: NYSTATIN CREAM 15 GM TOP (08:19)
== END 2018-05-18 14:15 | disposition home or self-care (01) | DRG 192 ==
LOC: M PED 05-15 20:30 → M MS5PR 13:00
DX: J44.1 Chronic obstructive pulmonary disease with (acute) exacerbation (principal); R09.02 Hypoxemia; F17.218 Nicotine dependence, cigarettes, with other nicotine-induced disorders; R50.9 Fever, unspecified; B37.2 Candidiasis of skin and nail; I10 Essential (primary) hypertension; E78.5 Hyperlipidemia, unspecified; F41.9 Anxiety disorder, unspecified; F32.9 Major depressive disorder, single episode, unspecified; B34.8 Other viral infections of unspecified site; M25.551 Pain in right hip; J45.909 Unspecified asthma, uncomplicated; E55.9 Vitamin D deficiency, unspecified; G25.81 Restless legs syndrome; Z88.1 Allergy status to other antibiotic agents; Z88.8 Allergy status to other drugs, medicaments and biological substances; Z79.899 Other long term (current) drug therapy

== ENCOUNTER 2018-08-23 11:05 | Day surgery (SDC) | payer MEDICARE, MEDICAID ==
[2018-08-23] MEDS ORDERED: ROPIvacaine 0.5% 30 ML INJECTION (J2795 PER 1MG) (11:06)
[2018-08-23] MEDS ORDERED: dexameTHASONE 10 MG/1 ML VIAL PRES.FREE (J1100) (11:06)
[2018-08-23] MEDS ORDERED: LIDOCAINE 1% SDV INJ 30 ML VIAL (11:06)
[2018-08-23] MEDS ORDERED: EPINEPHrine 1MG/ML INJ 30ML MD-VIAL (11:06)
[2018-08-23] MEDS: LR 1,000 ML IV ×2 (13:45→20:53)
[2018-08-23] MEDS ORDERED: MIDAZOLAM INJ 2 MG/2 ML VIAL (J2250) As Ordered ×2 (13:57→17:52)
[2018-08-23] MEDS ORDERED: fentaNYL 100 MCG/2 ML INJECTION (J3010) As Ordered (13:57)
[2018-08-23] MEDS: fentaNYL 100 MCG/2 ML INJECTION (J3010) IV (15:15)
[2018-08-23] MEDS: MIDAZOLAM INJ 2 MG/2 ML VIAL (J2250) IV (15:15)
[2018-08-23] MEDS ORDERED: ROCURONIUM BROMIDE 50 MG/5 ML VIAL As Ordered (17:52)
[2018-08-23] MEDS ORDERED: METOCLOPRAMIDE INJ 10MG/2ML VIAL (J2765) As Ordered (17:52)
[2018-08-23] MEDS ORDERED: LIDOCAINE 2% INJ 100 MG/5 ML SDV (FOR ANES.) As Ordered (17:52)
[2018-08-23] MEDS ORDERED: GLYCOPYRROLATE INJ 0.2 MG/ML 2 ML VIAL As Ordered (17:52)
[2018-08-23] MEDS ORDERED: dexameTHASONE 4 MG/ML 1ML VIAL (J1100) As Ordered (17:52)
[2018-08-23] MEDS ORDERED: fentaNYL 250 MCG/5 ML INJECTION (J3010) As Ordered (17:52)
[2018-08-23] MEDS ORDERED: ONDANSETRON 4MG/2ML VIAL (J2405) As Ordered (17:52)
[2018-08-23] MEDS ORDERED: PROPOFOL 200 MG/20 ML VIAL As Ordered (17:52)
[2018-08-23] MEDS ORDERED: NEOSTIGMINE 10 MG/10 ML VIAL (J2710) As Ordered (17:52)
[2018-08-23] MEDS: EPINEPHrine 1MG/ML INJ 30ML MD-VIAL As Ordered (18:33)
[2018-08-23] MEDS: LIDOCAINE 1% SDV INJ 30 ML VIAL As Ordered (19:15)
[2018-08-23] MEDS ORDERED: LABETALOL HCL 100 MG/20 ML VIAL As Ordered (19:29)
[2018-08-23] MEDS ORDERED: fentaNYL 100 MCG/2 ML INJECTION (J3010) IV (20:15)
[2018-08-23] MEDS ORDERED: METOCLOPRAMIDE INJ 10MG/2ML VIAL (J2765) IV (20:15)
[2018-08-23] MEDS ORDERED: LR 1,000 ML IV (20:15)
[2018-08-23] MEDS ORDERED: ONDANSETRON 4MG/2ML VIAL (J2405) IV ×2 (20:15→20:30)
[2018-08-23] MEDS ORDERED: PERCOCET 5MG/325MG TAB PO (20:15)
[2018-08-23] MEDS: MORPHINE 15 MG SA TAB PO (21:00)
[2018-08-24] MEDS: LR 1,000 ML IV (01:16)
[2018-08-24] MEDS: NORCO, ANEXSIA 5/325MG TABLET (HYDROcodone/ACETAMINOPHEN) PO ×2 (06:45→10:43)
[2018-08-24] MEDS: MORPHINE 15 MG SA TAB PO (09:19)
== END 2018-08-24 11:00 | disposition home or self-care (01) ==
LOC: M SDC 11:05 → M PED 20:54
DX: S43.491A Other sprain of right shoulder joint, initial encounter (principal); S42.291K Other displaced fracture of upper end of right humerus, subsequent encounter for fracture with nonunion; M24.611 Ankylosis, right shoulder; I10 Essential (primary) hypertension; E78.00 Pure hypercholesterolemia, unspecified; M12.9 Arthropathy, unspecified; F41.9 Anxiety disorder, unspecified; J44.9 Chronic obstructive pulmonary disease, unspecified; R06.83 Snoring; Z88.1 Allergy status to other antibiotic agents; Z79.899 Other long term (current) drug therapy; Z72.0 Tobacco use; Z87.81 Personal history of (healed) traumatic fracture; Z78.0 Asymptomatic menopausal state; Z98.51 Tubal ligation status; X58.XXXA Exposure to other specified factors, initial encounter; Y93.89 Activity, other specified; Y92.89 Other specified places as the place of occurrence of the external cause; Y99.8 Other external cause status
CPT/HCPCS: 29825

== ENCOUNTER → 2018-12-28 | Outpatient (CLI) | payer MEDICARE, MEDICAID ==
[~2018-12-28] MED LIST changes: +ACE; +ACE65ERTAB PO; +AMLO2.5T3 PO; +AMOX/K; +CETI10TA PO; +CONRAY-43 43% 50ML VIAL (Q9960) As Ordered ONE; +DOXY-350 PO; +GUAI100S10; +IPRA0.00 INH; +LIDOCAINE 1% MDV 20ML VIAL As Ordered ONE; +NICO21PAT TD; +NYST10CR TOP; +OXYC-403 PO; +PERC5TAB12 PO; +PRED20TA PO; +ROPI0.5T PO; +SERT25TA88 PO; +SING10TA32 PO; +SPIR12.9 INH; +TIOT18INH INH; +TRAM50TA2 PO; +TRIAMCINOLONE ACETONIDE SUSP 40 MG/ML VIAL (J3301) As Ordered ONE; +VALS1TAB47 PO; +VALS1TAB48 PO; +VENTAER INH; +ZOCO20TA PO
--- NOTE | 2018-12-28 13:53 | REP ---
RIGHT SHOULDER INJECTION The procedure was performed under the direct supervision of Dr. hendrix. The benefits and risks including but not limited to pain infection bleeding and anaphylaxis were explained to the patient and informed consent was obtained. The right glenohumeral joint space was localized using fluoroscopic guidance. The skin was prepped and draped in a sterile fashion. 1% lidocaine was used as a local anesthetic. Using fluoroscopic guidance a 22-gauge spinal needle was inserted and advanced into the joint. 0.5 ml of Conray 43 was injected to verify placement. 5 ml of a solution containing 5 ml of 1% lidocaine and 1 ml of Kenalog 40 mg injected. The needle was then removed. The patient tolerated the procedure well and there were no immediate complications. Less than 6 seconds of fluoroscopy time was utilized for this procedure. Reviewed by STEFFANY Farooq 12/28/2018 12:54 P Electronically Signed by Agusto Hendrix MD 12/28/2018 01:44 P
== END ==
LOC: M RADPRO 09:40
PROVIDERS: ATTEND Orthopaedic Surgery
DX: M24.611 Ankylosis, right shoulder (principal)
CPT/HCPCS: 20610; 77002; J3301; Q9960

== ENCOUNTER 2019-01-02 09:19 | Emergency (ER) | payer MEDICARE, MEDICAID ==
[~2019-01-02] VITALS: Ht 157.5 cm; Wt 77.3 kg
[~2019-01-02 09:19] MED LIST changes: -ACE; -ACE65ERTAB PO; -CONRAY-43 43% 50ML VIAL (Q9960) As Ordered ONE; -LIDOCAINE 1% MDV 20ML VIAL As Ordered ONE; -TRIAMCINOLONE ACETONIDE SUSP 40 MG/ML VIAL (J3301) As Ordered ONE
[2019-01-02 09:20] VITALS: BP 144/81
[2019-01-02] MEDS ORDERED: IBUPROFEN 800 MG TAB PO ONE (10:00)
--- NOTE | 2019-01-02 10:15 | REP ---
Clinical: Fall/trauma with pain. Technique: AP, lateral, bilateral oblique views of the right hand. Findings: Generalized age-related changes are appreciated. No obvious acute fracture or dislocation. No subcutaneous emphysema or radiodense foreign body. Impression: Age-related changes. No acute fracture or dislocation. Electronically Signed by Fahad Irwin MD 01/02/2019 10:07 A
--- NOTE | 2019-01-02 10:22 | REP ---
Clinical: Trauma/fall with pain. Technique: AP, lateral. Findings: Prior fixation for distal radial fracture. Degenerative changes are appreciated without acute fracture dislocation. No subcutaneous emphysema or foreign body. Impression: Degenerative changes. No acute fracture or dislocation. Electronically Signed by Fahad Irwin MD 01/02/2019 10:13 A
[2019-01-02] MEDS ORDERED: ACE65ERTAB PO (10:42)
[2019-01-02] MEDS ORDERED: ACE (10:42)
[2019-01-03] MEDS ORDERED: NEOSPORIN TOP OINT 15GM TOP ONE (09:00)
== END 2019-01-02 10:50 | disposition home or self-care (01) ==
LOC: M ED 09:19
DX: S00.31XA Abrasion of nose, initial encounter (principal); S00.33XA Contusion of nose, initial encounter; M79.641 Pain in right hand; I10 Essential (primary) hypertension; W00.9XXA Unspecified fall due to ice and snow, initial encounter; Y92.481 Parking lot as the place of occurrence of the external cause; Y93.9 Activity, unspecified; Y99.9 Unspecified external cause status; J44.9 Chronic obstructive pulmonary disease, unspecified; E78.5 Hyperlipidemia, unspecified; J30.9 Allergic rhinitis, unspecified; F41.9 Anxiety disorder, unspecified; G25.81 Restless legs syndrome; Z72.0 Tobacco use; Z79.899 Other long term (current) drug therapy; Z88.1 Allergy status to other antibiotic agents; Z88.8 Allergy status to other drugs, medicaments and biological substances

== ENCOUNTER → 2019-01-27 | Outpatient (REF) | payer MEDICARE, MEDICAID ==
[~2019-01-27] MED LIST changes: +ACE; +ACE65ERTAB PO
== END ==
LOC: M SFHCADAM 15:24
PROVIDERS: ATTEND Physician Assistant
DX: F17.218 Nicotine dependence, cigarettes, with other nicotine-induced disorders (principal); I10 Essential (primary) hypertension; E78.2 Mixed hyperlipidemia; Z53.8 Procedure and treatment not carried out for other reasons

== ENCOUNTER → 2019-02-15 | Outpatient (REF) | payer MEDICARE, MEDICAID | LOC: M SFHCWAGY 10:51 | PROVIDERS: ATTEND Nurse Practitioner Family | DX: Z12.4 Encounter for screening for malignant neoplasm of cervix (principal); N95.2 Postmenopausal atrophic vaginitis ==

== ENCOUNTER → 2019-02-15 | Outpatient (CLI) | payer MEDICARE, MEDICAID ==
[~2019-02-15] MED LIST changes: +OXYC1TAB23 PO; -PERCOCET PO; -VALS1TAB47 PO; -VALS1TAB48 PO; +VALS1TAB67 PO; +VALS1TAB68 PO
--- NOTE | 2019-02-15 16:11 | REPMRS ---
Patient History The patient states she had a clinical breast exam in 01/2019. Patient is postmenopausal. No known family history of cancer. No Hormone Replacement Therapy Digital Woman Screen Mammo: February 15, 2019 - Exam #: [id number] Bilateral CC and MLO view(s) were taken. Technologist: Larissa Lewis, Technologist Prior study comparison: January 14, 2017, digital woman screen mammo performed at [facility]. January 07, 2016, digital woman screen mammo performed at [facility]. January 04, 2015, digital woman screen mammo performed at [facility]. FINDINGS: The breast tissue is almost entirely fat. There has been no change in the appearance of the mammogram from the prior studies. There is no interval development of dominant mass, architectural distortion, or clustered microcalcification typical of malignancy. 3-D tomosynthesis shows no additional findings. Assessment: BI-RADS/ACR category 1 mammogram. Negative Mammogram. Recommendation Routine screening mammogram of both breasts in 1 year (for women over age 40). This patient's Lifetime Breast Cancer RIsk is estimated at 8.6 %. This mammogram was interpreted with the aid of an FDA-approved computer-aided dectection system. Electronically Signed By: Chaparro Lawrence MD 02/15/19 4620
== END ==
LOC: M WHC 10:29
PROVIDERS: ATTEND Nurse Practitioner Family
DX: Z01.419 Encounter for gynecological examination (general) (routine) without abnormal findings (principal); Z12.31 Encounter for screening mammogram for malignant neoplasm of breast; Z78.0 Asymptomatic menopausal state
CPT/HCPCS: 77063; 77067; G0101; G0123

== ENCOUNTER → 2019-03-29 | Outpatient (REF) | payer MEDICARE, MEDICAID ==
[2019-03-29 10:53] LABS: HEMATOCRIT 41.5 % (36.0-47.0); HEMOGLOBIN 13.6 g/dl (12.0-15.5); MEAN CORPUSCULAR HEMOGLOBIN 32.1 pg (27.0-33.0); MEAN CORPUSCULAR HGB CONC 32.8 g/dl (32.0-36.5); MEAN CORPUSCULAR VOLUME 97.9 fl (80.0-96.0); PLATELET COUNT, AUTOMATED 249 10^3/uL (150-450); RED BLOOD COUNT 4.24 10^6/uL (4.00-5.40); WHITE BLOOD COUNT 5.6 10^3/uL (4.0-10.0)
== END ==
LOC: M LABDRAW1 10:20
PROVIDERS: ATTEND Physician Assistant
DX: F17.218 Nicotine dependence, cigarettes, with other nicotine-induced disorders (principal); I10 Essential (primary) hypertension; E78.2 Mixed hyperlipidemia

== ENCOUNTER → 2019-03-29 | Outpatient (REF) | payer MEDICARE, MEDICAID ==
[2019-03-29 11:02] LABS: ALBUMIN 3.4 GM/DL (3.2-5.2); ALT/SGPT 16 U/L (12-78); BILIRUBIN,TOTAL 0.2 MG/DL (0.2-1.0); BLOOD UREA NITROGEN 6 MG/DL (7-18); CALCIUM LEVEL 8.7 MG/DL (8.5-10.1); CARBON DIOXIDE LEVEL 34 MEQ/L (21-32); CHLORIDE LEVEL 102 MEQ/L (98-107); CHOLESTEROL LEVEL 215 MG/DL (<200); CHOLESTEROL RISK RATIO 4.056 (<5); GLOMERULAR FILTRATION RATE > 60.0 (>51); GLUCOSE, FASTING 92 MG/DL (70-100); HDL CHOLESTEROL 53 MG/DL (>40); LDL CHOLESTEROL 140 MG/DL (<100); NON-HDL-C 162 MG/DL; POTASSIUM SERUM 4.1 MEQ/L (3.5-5.1); SODIUM LEVEL 138 MEQ/L (136-145); TRIGLYCERIDES LEVEL 109 MG/DL (<150)
== END ==
LOC: M LABDRAW1 10:18
PROVIDERS: ATTEND Physician Assistant
DX: Z13.220 Encounter for screening for lipoid disorders (principal); F17.218 Nicotine dependence, cigarettes, with other nicotine-induced disorders; I10 Essential (primary) hypertension; E78.2 Mixed hyperlipidemia

== ENCOUNTER → 2019-03-31 | Outpatient (REF) | payer MEDICARE, MEDICAID ==
[2019-03-31 15:20] LABS: MAU/CREAT RATIO 6.7 MCG/MG (0.0-30.0)
== END ==
LOC: M SFHCADAM 12:14
PROVIDERS: ATTEND Physician Assistant
DX: F17.218 Nicotine dependence, cigarettes, with other nicotine-induced disorders (principal); I10 Essential (primary) hypertension; E78.2 Mixed hyperlipidemia

== ENCOUNTER 2019-08-30 08:15 | Day surgery (SDC) | payer MEDICARE, MEDICAID ==
[~2019-08-30] VITALS: Ht 157.5 cm; Wt 77.1 kg
[~2019-08-30 08:15] MED LIST changes: +CLAR500T PO; +LIDOCAINE 1% MDV 20ML VIAL SQ PRN; +LR 1,000 ML IV ONE; +NYST1POW9 TOP; +SYMB80INH INH; +TYLE650T35 PO; +ceFAZolin SOD 2 GM in IV 1 EA IV ONE
[2019-08-30] MEDS ORDERED: LIDOCAINE 1% MDV 20ML VIAL ONE (08:16)
[2019-08-30] MEDS ORDERED: ROPIvacaine 0.5% 30 ML INJECTION (J2795 PER 1MG) ONE (08:16)
[2019-08-30] MEDS ORDERED: ALBUTEROL SULFATE 2.5 MG/0.5 ML INH NEB SOLN INH ONE (09:00)
[2019-08-30] MEDS ORDERED: fentaNYL 100 MCG/2 ML INJECTION (J3010) As Ordered ONE (10:36)
[2019-08-30] MEDS ORDERED: MIDAZOLAM INJ 2 MG/2 ML VIAL (J2250) As Ordered ONE ×2 (10:36→12:55)
[2019-08-30] MEDS: fentaNYL 100 MCG/2 ML INJECTION (J3010) IV PRN ×2 (11:14→11:25)
[2019-08-30] MEDS: MIDAZOLAM INJ 2 MG/2 ML VIAL (J2250) IV PRN ×2 (11:14→11:25)
[2019-08-30] MEDS ORDERED: LIDOCAINE 1% MDV 20ML VIAL As Ordered ONE (11:45)
[2019-08-30] MEDS ORDERED: EPINEPHrine 1MG/ML INJ 30ML MD-VIAL As Ordered ONE (11:45)
[2019-08-30] MEDS ORDERED: ROCURONIUM BROMIDE 50 MG/5 ML VIAL As Ordered ONE (12:55)
[2019-08-30] MEDS ORDERED: ePHEDrine SULFATE 25 MG/5 ML(5MG/ML) SYRINGE As Ordered ONE (12:55)
[2019-08-30] MEDS ORDERED: dexameTHASONE 4 MG/ML 1ML VIAL (J1100) As Ordered ONE (12:55)
[2019-08-30] MEDS ORDERED: LIDOCAINE 2% INJ 100 MG/5 ML SDV (FOR ANES.) As Ordered ONE (12:55)
[2019-08-30] MEDS ORDERED: KETOROLAC 60 MG/2 ML VIAL (J1885) As Ordered ONE (12:55)
[2019-08-30] MEDS ORDERED: SUGAMMADEX SODIUM 500 MG/5 ML VIAL (BRIDION) As Ordered ONE (12:55)
[2019-08-30] MEDS ORDERED: fentaNYL 250 MCG/5 ML INJECTION (J3010) As Ordered ONE (12:55)
[2019-08-30] MEDS ORDERED: PROPOFOL 200 MG/20 ML VIAL As Ordered ONE ×2 (12:55→13:54)
[2019-08-30] MEDS ORDERED: ONDANSETRON 4MG/2ML VIAL (J2405) As Ordered ONE (12:55)
[2019-08-30] MEDS ORDERED: ALBUTEROL 6.7GM INHALER **FOR ANES. CART/OMNICELL ONLY As Ordered ONE (14:20)
[2019-08-30] MEDS ORDERED: ONDANSETRON 4MG/2ML VIAL (J2405) IV PRN (15:00)
[2019-08-30] MEDS ORDERED: PERCOCET 5MG/325MG TAB PO PRN (15:00)
[2019-08-30] MEDS ORDERED: LR 1,000 ML IV SCH ×2 (15:00)
[2019-08-30] MEDS ORDERED: fentaNYL 100 MCG/2 ML INJECTION (J3010) IV PRN (15:00)
[2019-08-30 17:00] VITALS: BP 153/88
--- NOTE | 2019-08-30 18:31 | RO ---
DATE OF PROCEDURE: 08/30/2019 PREOPERATIVE DIAGNOSES: 1. Right shoulder painful hardware. 2. Right shoulder arthrofibrosis. 3. Right shoulder arthritis. 4. Right shoulder impingement. POSTOPERATIVE DIAGNOSES: 1. Right shoulder painful hardware. 2. Right shoulder arthrofibrosis. 3. Right shoulder arthritis. 4. Right shoulder impingement. PROCEDURE: 1. Right shoulder manipulation under anesthesia. 2. Right shoulder arthroscopic lysis of adhesions with rotator interval release. 3. Right shoulder hardware removal. 4. Right shoulder subacromial decompression. SURGEON: Dr. Rasheed Smith MOLD BREAKER: JOAQUINA Serrano ANESTHESIA: General with preoperative nerve block. IV FLUIDS: Lactated Ringer's. ESTIMATED BLOOD LOSS: 5 mL. COMPLICATIONS: None. DESCRIPTION OF PROCEDURE: Patient identified in preoperative holding area. The right shoulder marked by myself. She had an interscalene nerve block. She was brought to the operating room, placed supine on well-padded operating room (OR) table. General anesthesia was induced. She received appropriate intravenous (IV) antibiotics. Time-out was performed per hospital protocol. Examination under anesthesia revealed about 80 degrees of passive forward flexion, 10 degrees of external rotation with the arm at her side and 0 external rotation of the shoulder at 90. I then proceeded with a manipulation under anesthesia working on forward flexion. Several audible pops took place and then we worked adduction and abduction. Gentle external rotation of the arm at her side. Following the manipulation, she went from 80 degrees to 130 degrees of forward flexion, she now had 30 degrees of external rotation with arm at her side. She was then placed into the left side down lateral decubitus position with an axillary roll and all bony prominences were well padded. Bilateral Venodyne boots for deep vein thrombosis (DVT) prophylaxis. The right arm was placed into the Arthrex STaR Sleeve lateral decubitus traction xavier, 10 pounds of traction. The right shoulder was then prepped and draped in a normal sterile fashion with ChloraPrep. Prior to incision, a time-out was performed again per hospital protocol. Shawn Colby was present for the entire procedure and participated in all essential portions of the procedure. Posterior portal from prior surgery was opened with #11 blade, 30 degrees arthroscope was first introduced into the subacromial space. Lateral working portal was established, and a bursectomy performed with radiofrequency cautery and shaver. A large subacromial spur was encountered, and acromioplasty was performed with the bur, turning this into a type 1 morphology. The first of two screws were easily visualized in the subacromial space. The prior mini open incision was opened about a centimeter's worth and the small fragment screwdriver used to remove the partially threaded screw, which was loose and then a clamp used to move the washer. Shoulder was then externally rotated. The second screw was visualized arthroscopically, and through that same incision, a screwdriver was again used to remove the screw and washer. The bursal surface of the rotator cuff was palpated. There were no areas of full-thickness or high-grade tearing. The arthroscope was then placed into the joint where there was moderate chondromalacia of the humeral head, especially superiorly. An anterior working portal was established through the rotator interval and a rotator interval release was performed with the radiofrequency cautery. Scar tissue posterior to the subscapularis in the area of the middle glenohumeral ligament was elevated off of the subscapularis and then the shaver and meniscal punch were used to perform a capsular release. I would estimate I removed about half of the middle glenohumeral ligament. Given that her initial injury was a fracture-dislocation, I took care not to perform an extensive anterior release to avoid recurrent instability. Subscapularis was visualized. The articular surface of the supraspinatus appeared somewhat thinned but intact. No areas of full thickness tearing seen. Chondroplasty of the humeral head was performed with a shaver. The arthroscope was then inserted through the anterior portal and via the posterior portal, shaver and radiofrequency cautery used to perform a posterior superior release. The meniscal punch was then used to release the posterior capsule. The humeral head was now nicely elevated off the glenoid. The shoulder was irrigated and drained. Portals closed with nylon suture. Sterile dressing applied. The patient was then placed supine, and the shoulder was re-manipulated. The patient had 140 degrees of forward flexion, 40 of external rotation with the arm at her side. She was carefully placed into a sling. It took some time for her to wake up from general anesthesia, but she was extubated and transferred to the post-anesthesia care unit (PACU) in stable condition.
== END 2019-08-30 17:05 | disposition home or self-care (01) ==
LOC: M SDC 08:15
PROVIDERS: ATTEND Orthopaedic Surgery
DX: T84.84XA Pain due to internal orthopedic prosthetic devices, implants and grafts, initial encounter (principal); M24.611 Ankylosis, right shoulder; M19.011 Primary osteoarthritis, right shoulder; M75.41 Impingement syndrome of right shoulder; I10 Essential (primary) hypertension; E78.5 Hyperlipidemia, unspecified; J44.9 Chronic obstructive pulmonary disease, unspecified; Z79.51 Long term (current) use of inhaled steroids; Z88.1 Allergy status to other antibiotic agents; Z79.899 Other long term (current) drug therapy; F41.9 Anxiety disorder, unspecified; F17.210 Nicotine dependence, cigarettes, uncomplicated; Y79.2 Prosthetic and other implants, materials and accessory orthopedic devices associated with adverse incidents
CPT/HCPCS: 20680; 23700; 29825; 29826; J0690; J1100; J1885; J2250; J2405; J2795; J3010

== ENCOUNTER → 2019-09-05 | Outpatient (REF) | payer MEDICARE, MEDICAID ==
[~2019-09-05] MED LIST changes: +BENA25CA4 PO; +COMMENTS; +DIPH25CA32 PO; +DOXY100T PO; +FAMO20TA PO; +FAMO20TA4 PO; +FAMO40TA3 PO; -LIDOCAINE 1% MDV 20ML VIAL SQ PRN; -LR 1,000 ML IV ONE; +NEUR100C PO; +NYST50SS SS; +OXYC-517 PO; +PRED10TA2 PO; +SERT25TA21 PO; -SERT25TA88 PO; +VALS40TA9 PO; -ceFAZolin SOD 2 GM in IV 1 EA IV ONE
[2019-09-05 16:26] LABS: BASO % 0.3 % (0.0-1.0); EOS # 0.4 10^3/uL (0.0-0.5); EOS % 6.7 % (0.0-3.0); HEMATOCRIT 35.9 % (36.0-47.0); HEMOGLOBIN 11.5 g/dl (12.0-15.5); LYMPH # 1.9 10^3/uL (1.5-5.0); MEAN CORPUSCULAR HEMOGLOBIN 31.7 pg (27.0-33.0); MEAN CORPUSCULAR VOLUME 98.9 fl (80.0-96.0); MONO # 0.4 10^3/uL (0.0-0.8); MONO % 6.9 % (0.0-5.0); NEUTROPHILS # 3.6 10^3/uL (1.5-8.5); NEUTROPHILS % 56.8 % (36.0-66.0); PLATELET COUNT, AUTOMATED 246 10^3/uL (150-450); RED BLOOD COUNT 3.63 10^6/uL (4.00-5.40); WHITE BLOOD COUNT 6.4 10^3/uL (4.0-10.0)
[2019-09-05 18:28] LABS: ERYTHROCYTE SEDIMENTATION RATE 72 mm/hr (0-30)
== END ==
LOC: M LABDRAW1 14:56
PROVIDERS: ATTEND Orthopaedic Surgery
DX: M24.611 Ankylosis, right shoulder (principal); Z79.899 Other long term (current) drug therapy

== ENCOUNTER 2019-09-12 08:47 | Emergency (ER) | payer MEDICARE, MEDICAID ==
[~2019-09-12] VITALS: Ht 157.5 cm; Wt 82.3 kg
[2019-09-12 08:47] VITALS: BP 140/76
[~2019-09-12 08:47] MED LIST changes: -BENA25CA4 PO; -COMMENTS; -DIPH25CA32 PO; -DOXY100T PO; -FAMO20TA PO; -FAMO20TA4 PO; -FAMO40TA3 PO; -NEUR100C PO; -NYST50SS SS; -OXYC-517 PO; -PRED10TA2 PO; -VALS40TA9 PO
[2019-09-12] MEDS ORDERED: methylPREDNISolone INJ 125 MG/2 ML VIAL (J2930) IM ONE (09:15)
[2019-09-12] MEDS ORDERED: diphenhydrAMINE 50 MG CAP PO ONE (09:15)
[2019-09-12] MEDS ORDERED: PRED10TA2 PO (09:27)
[2019-09-12] MEDS ORDERED: BENA25CA4 PO (09:27)
[2019-09-13] MEDS ORDERED: NEUR100C PO (06:53)
[2019-09-13] MEDS ORDERED: OXYC-517 PO (06:53)
[2019-09-13] MEDS ORDERED: DIPH25CA32 PO (19:01)
[2019-09-13] MEDS ORDERED: PRED10TA2 PO (19:05)
== END 2019-09-12 09:32 | disposition home or self-care (01) ==
LOC: M ED 08:47
DX: T78.40XA Allergy, unspecified, initial encounter (principal); L29.9 Pruritus, unspecified; R21 Rash and other nonspecific skin eruption; Y92.9 Unspecified place or not applicable; Y93.9 Activity, unspecified; I10 Essential (primary) hypertension; F41.9 Anxiety disorder, unspecified; F17.200 Nicotine dependence, unspecified, uncomplicated; Z79.899 Other long term (current) drug therapy; Z88.1 Allergy status to other antibiotic agents; Z88.8 Allergy status to other drugs, medicaments and biological substances

== ENCOUNTER 2019-09-13 06:25 | Emergency (ER) | payer MEDICARE, MEDICAID ==
[~2019-09-13] VITALS: Ht 157.5 cm; Wt 81.8 kg
[~2019-09-13 06:25] MED LIST changes: +BENA25CA4 PO; +PRED10TA2 PO
[2019-09-13] MEDS ORDERED: OXYC-517 PO (06:53)
[2019-09-13] MEDS ORDERED: NEUR100C PO (06:53)
[2019-09-13] MEDS ORDERED: methylPREDNISolone INJ 125 MG/2 ML VIAL (J2930) IV ONE (07:00)
[2019-09-13] MEDS ORDERED: NS 1,000 ML IV ONE (07:00)
[2019-09-13] MEDS ORDERED: diphenhydrAMINE INJ 50MG/ML VIAL (J1200) IV ONE (07:00)
[2019-09-13] MEDS ORDERED: FAMOTIDINE INJ 20MG/2ML VIAL (S0028) IVP ONE (07:00)
[2019-09-13 07:28] LABS: HEMATOCRIT 43.1 % (36.0-47.0); HEMOGLOBIN 14.3 g/dl (12.0-15.5); LYMPH % 9.2 % (24.0-44.0); MEAN CORPUSCULAR HEMOGLOBIN 31.6 pg (27.0-33.0); MEAN CORPUSCULAR HGB CONC 33.2 g/dl (32.0-36.5); MEAN CORPUSCULAR VOLUME 95.4 fl (80.0-96.0); MONO # 0.3 10^3/uL (0.0-0.8); MONO % 2.6 % (0.0-5.0); NEUTROPHILS # 9.4 10^3/uL (1.5-8.5); NEUTROPHILS % 87.9 % (36.0-66.0); PLATELET COUNT, AUTOMATED 327 10^3/uL (150-450); RED BLOOD COUNT 4.52 10^6/uL (4.00-5.40); WHITE BLOOD COUNT 10.7 10^3/uL (4.0-10.0)
[2019-09-13 07:49] LABS: BLOOD UREA NITROGEN 9 MG/DL (7-18); CALCIUM LEVEL 9.5 MG/DL (8.5-10.1); CARBON DIOXIDE LEVEL 33 MEQ/L (21-32); CHLORIDE LEVEL 99 MEQ/L (98-107); CREATININE FOR GFR 0.79 MG/DL (0.55-1.30); GLOMERULAR FILTRATION RATE > 60.0 (>51); GLUCOSE, FASTING 131 MG/DL (70-100); POTASSIUM SERUM 3.9 MEQ/L (3.5-5.1); SODIUM LEVEL 137 MEQ/L (136-145)
[2019-09-13 09:16] VITALS: BP 128/61
[2019-09-13] MEDS ORDERED: DIPH25CA32 PO (19:01)
[2019-09-13] MEDS ORDERED: PRED10TA2 PO (19:05)
== END 2019-09-13 09:23 | disposition home or self-care (01) ==
LOC: M ED 06:25
DX: T78.40XA Allergy, unspecified, initial encounter (principal); I10 Essential (primary) hypertension; E78.5 Hyperlipidemia, unspecified; M54.9 Dorsalgia, unspecified; J44.9 Chronic obstructive pulmonary disease, unspecified; F17.200 Nicotine dependence, unspecified, uncomplicated; Z79.899 Other long term (current) drug therapy; Z88.1 Allergy status to other antibiotic agents; Z88.8 Allergy status to other drugs, medicaments and biological substances

== ENCOUNTER 2019-09-13 16:49 | Inpatient (IN) | payer MEDICARE, MEDICAID ==
[~2019-09-13] VITALS: Ht 157.5 cm; Wt 83.6 kg
[~2019-09-13 16:49] MED LIST changes: +NEUR100C PO; +OXYC-517 PO
[2019-09-13] MEDS ORDERED: ALBUTEROL SULFATE 2.5 MG/0.5 ML INH NEB SOLN NEB PRN (17:30)
[2019-09-13 17:38] VITALS: BP 146/94
[2019-09-13] MEDS ORDERED: DIPH25CA32 PO (19:01)
[2019-09-13] MEDS ORDERED: PRED10TA2 PO (19:05)
[2019-09-13] MEDS ORDERED: FAMOTIDINE INJ 20MG/2ML VIAL (S0028) IVP ONE (20:00)
[2019-09-13] MEDS ORDERED: ONDANSETRON 4MG/2ML VIAL (J2405) IV PRN (20:00)
[2019-09-13] MEDS: MONTELUKAST 10 MG TAB PO SCH (20:27)
[2019-09-13] MEDS: rOPINIRole 1MG TAB PO SCH (20:27)
[2019-09-13] MEDS: diphenhydrAMINE 50 MG CAP PO PRN (20:27)
[2019-09-13] MEDS: methylPREDNISolone INJ 40 MG/1 ML VIAL (J2920) IV SCH (20:27)
[2019-09-13 22:00] VITALS: BP 159/81
[2019-09-13] MEDS: SYMBICORT 80/4.5MCG INHALER 6GM INH SCH (22:12)
[2019-09-13] MEDS: ALBUTEROL SULFATE 2.5 MG/0.5 ML INH NEB SOLN NEB SCH (22:12)
[2019-09-14] MEDS: ALBUTEROL SULFATE 2.5 MG/0.5 ML INH NEB SOLN NEB SCH ×4 (01:20→20:00)
[2019-09-14 02:00] VITALS: BP 114/56
[2019-09-14] MEDS: diphenhydrAMINE 50 MG CAP PO PRN (02:28)
[2019-09-14 06:00] VITALS: BP 141/65
[2019-09-14 06:39] LABS: BASO % 0.1 % (0.0-1.0); HEMATOCRIT 37.6 % (36.0-47.0); HEMOGLOBIN 12.7 g/dl (12.0-15.5); LYMPH # 0.9 10^3/uL (1.5-5.0); LYMPH % 10.7 % (24.0-44.0); MEAN CORPUSCULAR HEMOGLOBIN 32.7 pg (27.0-33.0); MEAN CORPUSCULAR HGB CONC 33.8 g/dl (32.0-36.5); MEAN CORPUSCULAR VOLUME 96.9 fl (80.0-96.0); MONO # 0.3 10^3/uL (0.0-0.8); MONO % 3.2 % (0.0-5.0); NEUTROPHILS # 7.5 10^3/uL (1.5-8.5); NEUTROPHILS % 85.7 % (36.0-66.0); PLATELET COUNT, AUTOMATED 324 10^3/uL (150-450); RED BLOOD COUNT 3.88 10^6/uL (4.00-5.40); WHITE BLOOD COUNT 8.7 10^3/uL (4.0-10.0)
[2019-09-14 06:56] LABS: BLOOD UREA NITROGEN 10 MG/DL (7-18); C REACTIVE PROTEIN QUANTITATIV 2.97 MG/DL (0.00-0.30); CALCIUM LEVEL 8.9 MG/DL (8.5-10.1); CARBON DIOXIDE LEVEL 29 MEQ/L (21-32); CHLORIDE LEVEL 103 MEQ/L (98-107); CREATININE FOR GFR 0.77 MG/DL (0.55-1.30); GLOMERULAR FILTRATION RATE > 60.0 (>51); GLUCOSE, FASTING 131 MG/DL (70-100); POTASSIUM SERUM 3.9 MEQ/L (3.5-5.1); SODIUM LEVEL 139 MEQ/L (136-145)
[2019-09-14 06:59] LABS: ERYTHROCYTE SEDIMENTATION RATE 51 mm/hr (0-30)
[2019-09-14] MEDS: TIOTROPIUM INHALER/CAPSULE (SPIRIVA) INH SCH (07:21)
[2019-09-14] MEDS: SYMBICORT 80/4.5MCG INHALER 6GM INH SCH ×2 (07:22→20:00)
--- NOTE | 2019-09-14 09:19 | IPNPDOC ---
Subjective Date Seen The patient was seen on 09/14/19. Subjective Chief Complaint/HPI Still c/o severe itching Less SOB Constitutional: Denies: Chills, Fever Pulmonary: Denies: Dyspnea, Cough Cardiovascular: Denies: Chest Pain, Palpitations, Orthopnea Gastrointestinal: Denies: Nausea, Vomiting, Abdominal Pain, Diarrhea, Constipation Objective Physical Examination General Exam: Positive: Alert Chest Exam: Positive: Clear to auscultation; Negative: Rales, Rhonchi, Wheezing Heart Exam: Positive: Rate Normal; Negative: Regular Rhythm Abdomen Exam: Positive: Normal bowel sounds, Soft; Negative: Tenderness Extremity Exam: Negative: Edema Skin Exam: Positive: Pruritus, Other skin issue (Diffuse erythematous raised urticarial patches on face chest, abdomen, legs and feet) Assessment /Plan Problems (1) Erythema multiforme Status: Acute Problem Text: Likley secondary to Gabapentin Stopped Gabapetin Cont Solumedrol Change Benadrylk to Atarax (She thinks it is causing diarrhea) Cont Pepcid Add Calamine lotion Plan/VTE VTE Prophylaxis Ordered?: Yes VS, I&O, 24H, Fishbone Vital Signs/I&O Vital Signs Date Time Temp Pulse Resp B/P (MAP) Pulse Ox O2 Delivery O2 Flow Rate FiO2 09/14/19 06:00 98.7 109 22 141/65 (90) 93 2.0 I&O- Last 24 Hours up to 6 AM 09/14/19 06:00 Intake Total 250 ml Output Total 0 ml Balance 250 ml Laboratory Data 24H LABS Laboratory Tests 2 09/14/19 06:18: Immature Granulocyte % (Auto) 0.3, Neutrophils (%) (Auto) 85.7H, Lymphocytes (%) (Auto) 10.7L, Monocytes (%) (Auto) 3.2, Eosinophils (%) (Auto) 0.0, Basophils (%) (Auto) 0.1, Neutrophils # (Auto) 7.5, Lymphocytes # (Auto) 0.9L, Monocytes # (Auto) 0.3, Eosinophils # (Auto) 0.0, Basophils # (Auto) 0.0, Nucleated Red Blood Cells % (auto) 0.0, Erythrocyte Sedimentation Rate 51H, Anion Gap 7L, Glomerular Filtration Rate > 60.0, Calcium Level 8.9, C-Reactive Protein, Quantitative 2.97H CBC/BMP Laboratory Tests 09/14/19 06:18 FOUZIA JEFF PA-C Sep 14, 2019 09:19
[2019-09-14] MEDS: SERTRALINE HCL 25 MG TABLET PO SCH (09:52)
[2019-09-14] MEDS: FAMOTIDINE 20 MG TAB PO SCH ×2 (09:53→20:38)
[2019-09-14] MEDS: methylPREDNISolone INJ 40 MG/1 ML VIAL (J2920) IV SCH ×2 (09:54→20:38)
[2019-09-14] MEDS: ENOXAPARIN 40 MG/0.4 ML SYRINGE (J1650) SC SCH (09:54)
[2019-09-14] MEDS: VALSARTAN 80 MG TAB (DIOVAN) PO SCH (09:59)
[2019-09-14 10:00] VITALS: BP 140/80
[2019-09-14] MEDS: hydrOXYzine 50 MG TAB PO SCH ×3 (11:12→23:11)
[2019-09-14] MEDS: CALAMINE LOTION 177 ML BTL TOP SCH ×2 (11:12→20:39)
[2019-09-14 14:00] VITALS: BP 130/75
[2019-09-14] MEDS: rOPINIRole 1MG TAB PO SCH (20:38)
[2019-09-14] MEDS: MONTELUKAST 10 MG TAB PO SCH (20:38)
[2019-09-14 22:00] VITALS: BP 118/78
[2019-09-15] MEDS: ALBUTEROL SULFATE 2.5 MG/0.5 ML INH NEB SOLN NEB SCH ×3 (02:00→13:46)
[2019-09-15] MEDS: hydrOXYzine 50 MG TAB PO SCH ×2 (05:13→12:55)
[2019-09-15 06:00] VITALS: BP 127/73
[2019-09-15] MEDS: SYMBICORT 80/4.5MCG INHALER 6GM INH SCH (06:28)
[2019-09-15] MEDS: TIOTROPIUM INHALER/CAPSULE (SPIRIVA) INH SCH (06:28)
[2019-09-15 06:32] LABS: HEMATOCRIT 33.9 % (36.0-47.0); HEMOGLOBIN 11.3 g/dl (12.0-15.5); LYMPH % 16.5 % (24.0-44.0); MEAN CORPUSCULAR HEMOGLOBIN 32.7 pg (27.0-33.0); MEAN CORPUSCULAR HGB CONC 33.3 g/dl (32.0-36.5); MONO # 0.2 10^3/uL (0.0-0.8); MONO % 3.5 % (0.0-5.0); NEUTROPHILS # 4.8 10^3/uL (1.5-8.5); PLATELET COUNT, AUTOMATED 250 10^3/uL (150-450); RED BLOOD COUNT 3.46 10^6/uL (4.00-5.40); WHITE BLOOD COUNT 6.1 10^3/uL (4.0-10.0)
[2019-09-15 06:54] LABS: BLOOD UREA NITROGEN 11 MG/DL (7-18); CALCIUM LEVEL 8.5 MG/DL (8.5-10.1); CARBON DIOXIDE LEVEL 31 MEQ/L (21-32); CHLORIDE LEVEL 103 MEQ/L (98-107); CREATININE FOR GFR 0.67 MG/DL (0.55-1.30); GLOMERULAR FILTRATION RATE > 60.0 (>51); GLUCOSE, FASTING 118 MG/DL (70-100); POTASSIUM SERUM 4.3 MEQ/L (3.5-5.1); SODIUM LEVEL 139 MEQ/L (136-145)
[2019-09-15] MEDS ORDERED: CALCIUM CARBONATE 500 MG CHEW U/D PO SCH (09:00)
[2019-09-15] MEDS ORDERED: OMEPRAZOLE 20 MG CAP PO SCH (09:00)
[2019-09-15] MEDS: FAMOTIDINE 20 MG TAB PO SCH (09:02)
[2019-09-15] MEDS: ENOXAPARIN 40 MG/0.4 ML SYRINGE (J1650) SC SCH (09:02)
[2019-09-15] MEDS: methylPREDNISolone INJ 40 MG/1 ML VIAL (J2920) IV SCH (09:02)
[2019-09-15 09:07] VITALS: BP 108/54
[2019-09-15] MEDS: NYSTATIN 500,000 U/5 ML SUSP UDC SS SCH ×2 (09:07→12:54)
[2019-09-15] MEDS: CALAMINE LOTION 177 ML BTL TOP SCH (09:07)
[2019-09-15] MEDS: SERTRALINE HCL 25 MG TABLET PO SCH (09:07)
[2019-09-15] MEDS: VALSARTAN 80 MG TAB (DIOVAN) PO SCH (09:07)
[2019-09-15 10:00] VITALS: BP 113/66
[2019-09-15] MEDS ORDERED: FAMO20TA PO (11:16)
[2019-09-15] MEDS ORDERED: methylPREDNISolone 80MG/ML SUSP 1ML VIAL (J1040) IM ONE ×2 (11:30→12:00)
--- NOTE | 2019-09-15 12:45 | DSES ---
DATE OF ADMISSION: 09/13/2019 DATE OF DISCHARGE: 09/15/2019 PRINCIPAL DIAGNOSIS: Erythema multiforme presumably secondary to gabapentin. SECONDARY DIAGNOSES: 1. Severe chronic obstructive pulmonary disease (COPD). 2. History of anxiety. 3. History of depression. 4. Hypertensive heart disease. HISTORY: Rachel Bermudez, a 54-year-old, admitted from the office (history and physical generated through office-based electronic health record) after she presented with pruritic erythematous rash a few days after stopping gabapentin for shoulder pain. Details are in history and physical (H and P) from admission. HOSPITAL COURSE: The patient admitted to a medical bed. She was admitted due to extensive rash, shortness of breath, and concern she could be developing Sebastian-Evan syndrome. She did not develop Sebastian-Evan syndrome. She developed some erythema of the bulbar conjunctiva, but there are no ulcerations, no oral or urethral/genitourinary lesions, either. The rash consisted of several dozen lesions of various shapes and sizes, erythematous margin. Several target lesions were identified. Palms and soles were spared until the day of discharge when she showed me that her hands had become involved with the same rash. She was treated with intravenous (IV) steroids, Benadryl, and famotidine. The rash resolved, though it did spread on to her palms. The bulbar conjunctivae were less injected today. She is not short of breath. She developed no airway edema or other signs of angioedema. DISPOSITION: She is discharged home improved in stable condition. She has had daily laboratories that have been essentially unremarkable except for elevated sedimentation rate of 51, C-reactive protein of 2.97 consistent with inflammatory process. She will be discharged home after receiving Depo-Medrol 80 mg intramuscular (IM). Will provide a 1-week steroid taper. She will take Benadryl 50 mg every 6 hours as needed. She is aware that she is allergic to GABAPENTIN. (We also called Dr. Rasheed Smith [facility] and made him aware so his records can reflect this, as well.) She will take Pepcid 40 mg twice a day for 1 more week. Her medications will be unchanged from prior to admission. Albuterol as needed, amlodipine 2.5 mg daily, Symbicort 80/4.5 one inhalation twice a day, cetirizine 10 mg nightly, Benadryl 50 mg every 6 hours as needed, DuoNeb as needed, Singulair 10 mg nightly, oxycodone 5 mg every 4 hours as needed, ropinirole 1 mg nightly, sertraline 25 mg daily, valsartan 320 mg daily. She will start famotidine 40 mg twice a day. She takes Benadryl 50 mg every 6 hours as needed for itching. We have stopped prednisone on discharge, as she received Depo-Medrol 80 IM on discharge. NEURONTIN has been added to her allergy list. She uses oxygen (O2) 2 liters nasal cannula at night, which she will continue. edited: 09/16/2019 0723 tyler LAWTON
[2019-09-16] MEDS ORDERED: COMMENTS (13:54)
[2019-09-16] MEDS ORDERED: FAMO40TA3 PO (13:54)
[2019-09-16] MEDS ORDERED: FAMO20TA4 PO (13:56)
== END 2019-09-15 13:55 | disposition home or self-care (01) | DRG 596 ==
LOC: OBSVTOIN 17:38 → M MSPAV 17:38
PROVIDERS: ADMIT Family Medicine; ATTEND Family Medicine
DX: L51.9 Erythema multiforme, unspecified (principal); J42 Unspecified chronic bronchitis; Z98.890 Other specified postprocedural states; Z79.52 Long term (current) use of systemic steroids; Z79.899 Other long term (current) drug therapy; Z88.1 Allergy status to other antibiotic agents; Z88.8 Allergy status to other drugs, medicaments and biological substances; T43.8X5A Adverse effect of other psychotropic drugs, initial encounter; J44.9 Chronic obstructive pulmonary disease, unspecified; I11.9 Hypertensive heart disease without heart failure; F41.9 Anxiety disorder, unspecified; Z99.81 Dependence on supplemental oxygen

== ENCOUNTER 2019-09-16 10:40 | Inpatient (IN) | payer MEDICARE, MEDICAID ==
[~2019-09-16] VITALS: Ht 157.5 cm; Wt 90.9 kg
[~2019-09-16 10:40] MED LIST changes: +DIPH25CA32 PO; +FAMO20TA PO
[2019-09-16 11:14] LABS: EOS % 0.3 % (0.0-3.0); HEMATOCRIT 38.1 % (36.0-47.0); HEMOGLOBIN 12.4 g/dl (12.0-15.5); LYMPH # 1.2 10^3/uL (1.5-5.0); LYMPH % 13.5 % (24.0-44.0); MEAN CORPUSCULAR HEMOGLOBIN 32.2 pg (27.0-33.0); MEAN CORPUSCULAR HGB CONC 32.5 g/dl (32.0-36.5); MONO # 0.4 10^3/uL (0.0-0.8); MONO % 3.8 % (0.0-5.0); NEUTROPHILS # 7.5 10^3/uL (1.5-8.5); NEUTROPHILS % 81.3 % (36.0-66.0); PLATELET COUNT, AUTOMATED 303 10^3/uL (150-450); RED BLOOD COUNT 3.85 10^6/uL (4.00-5.40); WHITE BLOOD COUNT 9.2 10^3/uL (4.0-10.0)
[2019-09-16] MEDS ORDERED: IPRATROPIUM 0.5MG/ALBUTEROL 2.5MG INH SOL UD 3ML (DUONEB)(J7620) NEB ONE (11:15)
[2019-09-16] MEDS ORDERED: methylPREDNISolone INJ 125 MG/2 ML VIAL (J2930) IV ONE (11:15)
[2019-09-16] MEDS ORDERED: ALBUTEROL SULFATE 2.5 MG/0.5 ML INH NEB SOLN INH ONE (11:15)
[2019-09-16 11:30] LABS: ABG BASE EXCESS 4.7 (-2.0-2.0); ABG HCO3 30.7 MEQ/L (22.0-26.0); ABG O2 SATURATION 98.2 % (95.0-99.0); ABG PARTIAL PRESSURE CO2 51.6 mmHg (35.0-45.0); ABG STANDARD HCO3 28.7 MEQ/L (22.0-26.0); ABG TOTAL CO2 32.3 MEQ/L (22.0-29.0); ABG pH (ARTERIAL) 7.392 UNITS (7.350-7.450)
[2019-09-16 11:37] LABS: BLOOD UREA NITROGEN 7 MG/DL (7-18); CALCIUM LEVEL 8.8 MG/DL (8.5-10.1); CARBON DIOXIDE LEVEL 35 MEQ/L (21-32); CHLORIDE LEVEL 101 MEQ/L (98-107); CREATININE FOR GFR 0.69 MG/DL (0.55-1.30); GLOMERULAR FILTRATION RATE > 60.0 (>51); GLUCOSE, FASTING 111 MG/DL (70-100); POTASSIUM SERUM 3.8 MEQ/L (3.5-5.1); SODIUM LEVEL 139 MEQ/L (136-145)
--- NOTE | 2019-09-16 11:54 | REP ---
Portable chest x-ray: Single view. History: Dyspnea and cough. Comparison chest x-ray: May 11, 2018. Findings: Oxygen delivery tubing and monitoring electrodes are seen. There is a zone of linear fibrosis in the right lung apex. The lungs are otherwise well inflated and clear. Pleural angles are sharp. Heart size is normal. The to previously noted orthopedic metallic screws have been removed from the humeral head on the right side. There are radiolucent areas in the humeral head on the right. Impression: Linear fibrosis right lung apex. Otherwise no acute disease. Status post orthopedic screw removal right humeral head. Electronically Signed by Ray Lawrence MD 09/16/2019 11:45 A
[2019-09-16] MEDS: FUROSEMIDE 40 MG/4 ML VIAL (J1940) IV SCH ×2 (12:00→18:43)
[2019-09-16 12:17] LABS: ALBUMIN 3.2 GM/DL (3.2-5.2); ALT/SGPT 14 U/L (12-78); BILIRUBIN,DIRECT < 0.1 MG/DL (0.0-0.2); BILIRUBIN,TOTAL 0.1 MG/DL (0.2-1.0); CK-MB VALUE MASS 2.7 NG/ML (<3.6); CPK CREATINE PHOSPHOKINASE 175 U/L (26-192); MB/CK RELATIVE INDEX 1.54 (< OR =4); NT-PRO BNP 1159 PG/ML (<125); THYROXINE (T4) 12.1 UG/DL (4.5-12.0); TOTAL PROTEIN 6.9 GM/DL (6.4-8.2); TROPONIN I < 0.02 NG/ML (< 0.10)
[2019-09-16] MEDS ORDERED: FAMO40TA3 PO (13:54)
[2019-09-16] MEDS ORDERED: COMMENTS (13:54)
[2019-09-16] MEDS ORDERED: FAMO20TA4 PO (13:56)
[2019-09-16] MEDS ORDERED: oxyCODONE 5MG TAB PO PRN (14:30)
[2019-09-16] MEDS ORDERED: diphenhydrAMINE 25 MG CAP PO PRN (14:30)
--- NOTE | 2019-09-16 14:58 | HPE ---
DATE OF ADMISSION: 09/16/2019 PRINCIPAL DIAGNOSIS: Acute on chronic diastolic congestive heart failure (CHF). OTHER DIAGNOSES: Recent erythema multiforme secondary to gabapentin. HISTORY: Rachel Bermudez 54-year-old with severe chronic obstructive pulmonary disease (COPD) requiring supplemental nocturnal oxygen, recently hospitalized 09/13-09/15 for erythema multiforme secondary to gabapentin requiring inpatient therapy. She was stable on discharge, but noticed she was developing lower extremity edema this morning. She then developed dyspnea on exertion and felt short of breath. She has supplemental oxygen at home that she uses at bedtime so she had to stay her bedroom and use this. She was brought to the emergency room and her oxygen saturation was 80% on room air, went to 91% on supplemental oxygen. Her BNP was 1100. She is being admitted for diuresis for the peripheral edema probably secondary to recent steroid therapy. Her recent admission for erythema multiforme secondary to gabapentin included a history and physical that will not be repeated here, unchanged. She has severe COPD, FEV1 was 0.7 on last spirometry. She has a history of tobacco abuse, hypertensive heart disease, chronic anxiety, and depression, made worse by recent steroid therapy, history of herpes simplex 2, vitamin D deficiency, restless leg syndrome, allergic rhinitis. ALLERGIES: 1. GABAPENTIN. 2. SOMA. 3. SYMBICORT. 4. CIPRO. 5. AVELOX. SURGICAL HISTORY: Tubal ligation. Left great toe surgery. Cholecystectomy. Right arm fracture. EGD/colonoscopy 2006. Right shoulder fracture 12/17. Colonoscopy 12/17 with tubular adenomas on biopsy. Left shoulder surgery 06/17. FAMILY HISTORY: Father had a history of myocardial infarction, mother of congestive heart failure (CHF). SOCIAL HISTORY: Still smokes. Disabled due to learning disability. No alcohol. REVIEW OF SYSTEMS: She feels "hot and cold." Her rash is resolving. She still has some conjunctival irritation. No fever, chills, sputum production. PHYSICAL EXAMINATION: Vital signs per flow sheet. O2 saturation 80% on room air. Mid 90s on 4 liters. General appearance: She is alert and conversant. Conjunctiva are injected. There is no ulceration of the bulbar or palpebral conjunctiva, nor any of the nasal or oral mucosa. Pupils equal and reactive to light. Pharynx benign. Neck no masses. Lungs expiratory wheezes all garg, diffuse rhonchi. Heart regular rhythm, no murmur. Abdomen soft, nontender. No masses. 1+ peripheral edema bilaterally. Increased from last admission. LABS: Chest x-ray looks essentially clear. BNP is 1200. CARDIAC TESTING: She had an echocardiogram , ejection fraction 65%. Left atrium 37 mm. Normal echocardiogram. She had a nuclear stress test on 06/13/2019 that was normal. There was no perfusion abnormality. Ejection fraction was 72%. IMPRESSION: 1. Congestive heart failure (CHF) with preserved ejection fraction. I think she retained fluid secondary to the steroid therapy. I will admit her to a medical bed. I ordered intravenous Lasix 40 mg every 6 hours to maintain that diuresis of 1200 mL per day. She has a 2 gram sodium diet with fluid restriction. Her echocardiogram was just done 4 months ago so it will not be repeated. 2. Erythema multiforme. Rash is resolved. She has had some conjunctival injection and some diffuse erythema of the skin where the rash was previously. She received Depo-Medrol 80 mg IM the day of discharge so has steroid taper over the next 5-7 days already provided through that injection. Therefore, I will not be continuing any other steroids. She can use Benadryl 50 every 6 hours as needed if she develops any itching. 3. Severe COPD. Continue bronchodilator therapy. Received a Depo-Medrol injection yesterday. 4. Hypertensive heart disease. Blood pressure might go up from the recent steroids. Continue valsartan and amlodipine. 5. History of anxiety/depression. Continue Zoloft 25 mg daily. She is visibly anxious, probably from the steroids. I think this is contributing to some of the breathlessness.
[2019-09-16] MEDS: IPRATROPIUM 0.5MG/ALBUTEROL 2.5MG INH SOL UD 3ML (DUONEB)(J7620) NEB PRN (15:44)
[2019-09-16 18:15] VITALS: BP 197/108
[2019-09-16] MEDS: VALSARTAN 80 MG TAB (DIOVAN) PO SCH (18:36)
[2019-09-16] MEDS: IPRATROPIUM 0.5MG/ALBUTEROL 2.5MG INH SOL UD 3ML (DUONEB)(J7620) NEB SCH ×2 (18:42→23:02)
--- NOTE | 2019-09-16 20:07 | ECGEPIP ---
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
[2019-09-16] MEDS: MONTELUKAST 10 MG TAB PO SCH (20:36)
[2019-09-16] MEDS: FAMOTIDINE 20 MG TAB PO SCH (20:36)
[2019-09-16] MEDS: CETIRIZINE (ZyrTEC) 10 MG TAB PO SCH (20:36)
[2019-09-16] MEDS: rOPINIRole 1MG TAB PO SCH (20:36)
[2019-09-16] MEDS: SYMBICORT 80/4.5MCG INHALER 6GM INH SCH (21:00)
[2019-09-16 22:00] VITALS: BP 160/80
[2019-09-17] MEDS: FUROSEMIDE 40 MG/4 ML VIAL (J1940) IV SCH ×3 (00:18→11:24)
[2019-09-17 02:00] VITALS: BP 168/90
[2019-09-17] MEDS: METOPROLOL SUCC *XL* 25MG TAB (TopROL *XL*) PO SCH ×2 (03:05→08:51)
--- NOTE | 2019-09-17 03:44 | REPVR ---
PROCEDURE INFORMATION: Exam: XR Chest, 1 View Exam date and time: 09/17/2019 2:56 AM Clinical history: 54 years old, female; Chest pain; Type not specified; Additional info: Chest pain/ chf TECHNIQUE: Imaging protocol: XR of the chest Views: 1 view. COMPARISON: CR PORTABLE CHEST X-RAY 09/16/2019 11:21 AM FINDINGS: Lungs: Improved inflation of the lungs since the prior study. There are no interval infiltrates. Pleural space: Unremarkable. No pleural effusion. No pneumothorax. Heart/Mediastinum: Unremarkable. No cardiomegaly. Bones/joints: Unremarkable. IMPRESSION: Negative chest with improved inflation since 09/16/2019. Electronically signed by: Ilia Patel On 09/17/2019 03:44:02 AM
[2019-09-17 04:00] VITALS: BP 188/90
[2019-09-17 05:30] VITALS: O2SAT 88
[2019-09-17] MEDS: IPRATROPIUM 0.5MG/ALBUTEROL 2.5MG INH SOL UD 3ML (DUONEB)(J7620) NEB PRN ×4 (05:34→17:52)
[2019-09-17 05:58] LABS: HEMATOCRIT 39.7 % (36.0-47.0); HEMOGLOBIN 12.8 g/dl (12.0-15.5); MEAN CORPUSCULAR HEMOGLOBIN 31.9 pg (27.0-33.0); MEAN CORPUSCULAR HGB CONC 32.2 g/dl (32.0-36.5); RED BLOOD COUNT 4.01 10^6/uL (4.00-5.40); WHITE BLOOD COUNT 14.8 10^3/uL (4.0-10.0)
[2019-09-17 06:13] LABS: PLATELET COUNT, AUTOMATED 447 10^3/uL (150-450)
[2019-09-17 06:28] LABS: BLOOD UREA NITROGEN 13 MG/DL (7-18); CALCIUM LEVEL 8.5 MG/DL (8.5-10.1); CARBON DIOXIDE LEVEL 39 MEQ/L (21-32); CHLORIDE LEVEL 95 MEQ/L (98-107); CREATININE FOR GFR 0.76 MG/DL (0.55-1.30); GLOMERULAR FILTRATION RATE > 60.0 (>51); GLUCOSE, FASTING 136 MG/DL (70-100); POTASSIUM SERUM 4.3 MEQ/L (3.5-5.1); SODIUM LEVEL 137 MEQ/L (136-145)
--- NOTE | 2019-09-17 07:03 | ECGEPIP ---
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
[2019-09-17] MEDS: SYMBICORT 80/4.5MCG INHALER 6GM INH SCH (07:26)
[2019-09-17] MEDS: IPRATROPIUM 0.5MG/ALBUTEROL 2.5MG INH SOL UD 3ML (DUONEB)(J7620) NEB SCH ×3 (07:28→19:32)
[2019-09-17 08:00] VITALS: BP 118/60
[2019-09-17] MEDS: VALSARTAN 80 MG TAB (DIOVAN) PO SCH ×2 (08:50→20:07)
[2019-09-17] MEDS: FAMOTIDINE 20 MG TAB PO SCH ×2 (08:50→20:07)
[2019-09-17] MEDS: SERTRALINE HCL 25 MG TABLET PO SCH (08:51)
[2019-09-17] MEDS ORDERED: VALSARTAN 80 MG TAB (DIOVAN) PO SCH (09:00)
[2019-09-17] MEDS: ACETAMINOPHEN TAB 650MG DOSE (2X325MG) PO PRN ×2 (09:53→17:48)
--- NOTE | 2019-09-17 14:22 | IPNPDOC ---
Subjective Date Seen The patient was seen on 09/17/19. Subjective Chief Complaint/HPI improved dyspnea since admission, resolved CP since last PM Constitutional: Reports: Fever; Denies: Chills Eyes: Denies: Pain ENT: Denies: Head Aches Skin: Denies: Rash, Lesions Pulmonary: Reports: Cough; Denies: Dyspnea Cardiovascular: Denies: Chest Pain, Palpitations Gastrointestinal: Denies: Nausea, Vomiting Genitourinary: Denies: Dysuria, Frequency Hematologic: Denies: Bruising, Bleeding Excessively Neurological: Denies: Weakness Psych: Reports: Mood Normal Objective Physical Examination General Exam: Positive: Alert, No Acute Distress Neck Exam: Negative: JVD Chest Exam: Positive: Wheezing, Diminished Heart Exam: Positive: Rate Normal Telemetry: Positive: No significant arrhythmia Abdomen Exam: Positive: Normal bowel sounds Extremity Exam: Negative: Edema Psych Exam: Positive: Mental status NL Assessment /Plan Problems (1) COPD with acute exacerbation Status: Acute Problem Text: chronic 2L NC D1 doxy 09/17 + DM 60 BID, guai/Acapella for secretion malclearance 09/17 CXR NAD 09/17 SCX P (2) Leukocytosis Status: Acute Problem Text: c Tm 100.6 at 800 09/17 favor 2 COPD exac, but EM can cause both 09/16 BCX2 NG 09/16 RES PCR - (3) HTN (hypertension) Status: Acute Problem Text: stable on HD kathy 160 BID, almo 2.5 (4) Erythema multiforme Status: Acute Problem Text: no recurrence, ? 2 quoc (5) Diastolic CHF, acute on chronic Status: Acute Problem Text: 1L since 09/16 admission 09/17 held IV fur 09/17 TTE P 09/16 T-I 09/16 BNP 1159 (6) Nicotine use disorder Status: Chronic Problem Text: states she has quit c this flare-defers rx assistance (7) Oral candidiasis Status: Acute Problem Text: c secondary anorexia 09/17 + nys QID (8) Physical deconditioning Status: Acute Problem Text: 09/17 + PT Plan/VTE VTE Prophylaxis Ordered?: Yes VS, I&O, 24H, Fishbone Vital Signs/I&O Vital Signs Date Time Temp Pulse Resp B/P (MAP) Pulse Ox O2 Delivery O2 Flow Rate FiO2 09/17/19 12:00 98.8 67 22 94 Nasal Cannula 4.0 09/17/19 09:53 118/60 I&O- Last 24 Hours up to 6 AM 09/17/19 06:00 Intake Total 510 ml Output Total 1600 ml Balance -1090 ml Laboratory Data 24H LABS Laboratory Tests 2 09/17/19 05:33: Nucleated Red Blood Cells % (auto) 0.0, Anion Gap 3L, Glomerular Filtration Rate > 60.0, Calcium Level 8.5 CBC/BMP Laboratory Tests 09/17/19 05:33 Microbiology Microbiology 09/16/19 Blood Culture, Received Pending 09/16/19 Respiratory Virus Panel (PCR) ([facility]) - Final, Complete 09/16/19 Blood Culture - Preliminary, Resulted No growth after 24 hours . All specim... Mohit Douglas M.D. Sep 17, 2019 14:22
[2019-09-17] MEDS ORDERED: diphenhydrAMINE 50 MG CAP PO PRN (14:29)
[2019-09-17] MEDS: guaiFENesin ER 600 MG TAB PO SCH ×2 (14:56→20:06)
[2019-09-17] MEDS: methylPREDNISolone INJ 125 MG/2 ML VIAL (J2930) IV SCH (14:56)
[2019-09-17] MEDS: ENOXAPARIN 40 MG/0.4 ML SYRINGE (J1650) SC SCH (14:56)
[2019-09-17] MEDS: NYSTATIN 500,000 U/5 ML SUSP UDC SS SCH ×2 (14:57→17:47)
[2019-09-17] MEDS: DOXYCYCLINE HYCLATE 100 MG in D5W MINI-BAG PLUS 100 ML IV SCH (14:57)
[2019-09-17 20:00] VITALS: BP 124/70
[2019-09-17] MEDS: CETIRIZINE (ZyrTEC) 10 MG TAB PO SCH (20:06)
[2019-09-17] MEDS: MONTELUKAST 10 MG TAB PO SCH (20:06)
[2019-09-17] MEDS: rOPINIRole 1MG TAB PO SCH (20:07)
[2019-09-17 22:35] VITALS: BP 106/68
[2019-09-18] MEDS: IPRATROPIUM 0.5MG/ALBUTEROL 2.5MG INH SOL UD 3ML (DUONEB)(J7620) NEB PRN (00:07)
[2019-09-18] MEDS: NYSTATIN 500,000 U/5 ML SUSP UDC SS SCH ×5 (00:07→23:47)
[2019-09-18] MEDS: SYMBICORT 80/4.5MCG INHALER 6GM INH SCH ×3 (00:48→21:00)
[2019-09-18] MEDS: DOXYCYCLINE HYCLATE 100 MG in D5W MINI-BAG PLUS 100 ML IV SCH ×2 (02:01→16:17)
[2019-09-18] MEDS: IPRATROPIUM 0.5MG/ALBUTEROL 2.5MG INH SOL UD 3ML (DUONEB)(J7620) NEB SCH ×4 (02:01→20:19)
[2019-09-18] MEDS: methylPREDNISolone INJ 125 MG/2 ML VIAL (J2930) IV SCH (02:02)
[2019-09-18 05:55] LABS: HEMATOCRIT 34.3 % (36.0-47.0); HEMOGLOBIN 11.2 g/dl (12.0-15.5); MEAN CORPUSCULAR HEMOGLOBIN 31.5 pg (27.0-33.0); MEAN CORPUSCULAR HGB CONC 32.7 g/dl (32.0-36.5); MEAN CORPUSCULAR VOLUME 96.3 fl (80.0-96.0); PLATELET COUNT, AUTOMATED 281 10^3/uL (150-450); RED BLOOD COUNT 3.56 10^6/uL (4.00-5.40); WHITE BLOOD COUNT 6.9 10^3/uL (4.0-10.0)
[2019-09-18 06:00] VITALS: BP 110/69
[2019-09-18 06:17] LABS: BLOOD UREA NITROGEN 18 MG/DL (7-18); CALCIUM LEVEL 8.4 MG/DL (8.5-10.1); CARBON DIOXIDE LEVEL 38 MEQ/L (21-32); CHLORIDE LEVEL 94 MEQ/L (98-107); CREATININE FOR GFR 0.67 MG/DL (0.55-1.30); GLOMERULAR FILTRATION RATE > 60.0 (>51); GLUCOSE, FASTING 143 MG/DL (70-100); POTASSIUM SERUM 3.2 MEQ/L (3.5-5.1); SODIUM LEVEL 135 MEQ/L (136-145)
[2019-09-18] MEDS ORDERED: methylPREDNISolone INJ 40 MG/1 ML VIAL (J2920) IV SCH (09:00)
[2019-09-18] MEDS ORDERED: VALSARTAN 80 MG TAB (DIOVAN) PO SCH (09:00)
[2019-09-18] MEDS: FAMOTIDINE 20 MG TAB PO SCH ×2 (09:57→20:20)
[2019-09-18] MEDS: SERTRALINE HCL 25 MG TABLET PO SCH (09:57)
[2019-09-18] MEDS: guaiFENesin ER 600 MG TAB PO SCH ×2 (09:57→20:20)
[2019-09-18] MEDS: ENOXAPARIN 40 MG/0.4 ML SYRINGE (J1650) SC SCH (09:57)
[2019-09-18] MEDS: VALSARTAN 80 MG TAB (DIOVAN) PO SCH ×2 (10:08→20:19)
[2019-09-18 14:00] VITALS: BP 115/61
--- NOTE | 2019-09-18 15:42 | IPNPDOC ---
Subjective Date Seen The patient was seen on 09/18/19. Subjective Chief Complaint/HPI dyspnea at baseline Constitutional: Denies: Chills Eyes: Denies: Pain ENT: Denies: Head Aches Skin: Denies: Rash, Lesions Pulmonary: Denies: Dyspnea, Cough Cardiovascular: Denies: Chest Pain, Palpitations Gastrointestinal: Denies: Nausea, Vomiting Objective Physical Examination General Exam: Positive: Alert, No Acute Distress Neck Exam: Negative: JVD Chest Exam: Positive: Wheezing, Diminished Heart Exam: Positive: Rate Normal Telemetry: Positive: No significant arrhythmia Abdomen Exam: Positive: Normal bowel sounds Extremity Exam: Negative: Edema Psych Exam: Positive: Mental status NL Assessment /Plan Problems (1) Diastolic CHF, acute on chronic Status: Acute Problem Text: 0 change since 09/16 admission-? accuracy 09/18 increased BLE edema c 2 pruritus c restart SM; therefore, decreased to 40 QD, dc amlo 2.5 which will increase edema, decreased kathy 160 BID to 80 BID given SBP 110s and fur 20 IV x 1 c K 40 po x 2 09/17 held IV fur 09/17 TTE P 09/16 T-I 09/16 BNP 1159 (2) COPD with acute exacerbation Status: Acute Problem Text: chronic 2L NC D2 doxy; SM 40 09/18 AF, improved dyspnea-down to 1L 09/17 + SM 60 BID, guai/Acapella for secretion malclearance 09/17 CXR NAD 09/17 SCX P (3) Leukocytosis Status: Acute Problem Text: c Tm 100.6 at 800 09/17 favor 2 COPD exac, but EM can cause both 09/18 AF and down to 6.9 (09/17 14.9) 09/16 BCX2 NG 09/16 RES PCR - (4) HTN (hypertension) Status: Acute Problem Text: as per CHF HD: kathy 320, almo 2.5 (5) Erythema multiforme Status: Acute Problem Text: no recurrence, ? 2 quoc (6) Nicotine use disorder Status: Chronic Problem Text: states she has quit c this flare-defers rx assistance (7) Oral candidiasis Status: Acute Problem Text: c secondary anorexia 09/18 improved appetite/taste 09/17 + nys QID (8) Physical deconditioning Status: Acute Problem Text: 09/18 NSDCH per PT Plan/VTE VTE Prophylaxis Ordered?: Yes VS, I&O, 24H, Fishbone Vital Signs/I&O Vital Signs Date Time Temp Pulse Resp B/P (MAP) Pulse Ox O2 Delivery O2 Flow Rate FiO2 09/18/19 14:00 98.9 86 18 115/61 (79) 98 Nasal Cannula 3.0 I&O- Last 24 Hours up to 6 AM 09/18/19 05:59 Intake Total 1210 ml Output Total 200 ml Balance 1010 ml Laboratory Data 24H LABS Laboratory Tests 2 09/18/19 05:37: Nucleated Red Blood Cells % (auto) 0.0, Anion Gap 3L, Glomerular Filtration Rate > 60.0, Calcium Level 8.4L CBC/BMP Laboratory Tests 09/18/19 05:37 Microbiology Microbiology 09/16/19 Blood Culture - Preliminary, Resulted No growth after 24 hours . All specim... 09/16/19 Respiratory Virus Panel (PCR) ([facility]) - Final, Complete 09/16/19 Blood Culture - Preliminary, Resulted No Growth after 48 hours. All Specime... Mohit Douglas M.D. Sep 18, 2019 15:42
[2019-09-18] MEDS ORDERED: POTASSIUM CHLORIDE 10 MEQ SR TABLET PO ONE ×2 (16:30→21:00)
[2019-09-18] MEDS ORDERED: FUROSEMIDE 20 MG/2 ML VIAL (J1940) IV ONE (17:00)
[2019-09-18 18:00] VITALS: BP 110/75
[2019-09-18] MEDS: CETIRIZINE (ZyrTEC) 10 MG TAB PO SCH (20:20)
[2019-09-18] MEDS: rOPINIRole 1MG TAB PO SCH (20:20)
[2019-09-18] MEDS: MONTELUKAST 10 MG TAB PO SCH (20:20)
[2019-09-18 22:00] VITALS: BP 115/74
[2019-09-19] MEDS: IPRATROPIUM 0.5MG/ALBUTEROL 2.5MG INH SOL UD 3ML (DUONEB)(J7620) NEB SCH ×4 (00:24→20:00)
[2019-09-19 02:00] VITALS: BP 125/64
[2019-09-19] MEDS: DOXYCYCLINE HYCLATE 100 MG in D5W MINI-BAG PLUS 100 ML IV SCH (02:15)
[2019-09-19] MEDS: NYSTATIN 500,000 U/5 ML SUSP UDC SS SCH ×4 (05:11→23:49)
[2019-09-19 06:00] VITALS: BP 122/55
[2019-09-19 06:43] LABS: HEMATOCRIT 34.5 % (36.0-47.0); HEMOGLOBIN 11.3 g/dl (12.0-15.5); MEAN CORPUSCULAR HEMOGLOBIN 32.6 pg (27.0-33.0); MEAN CORPUSCULAR HGB CONC 32.8 g/dl (32.0-36.5); MEAN CORPUSCULAR VOLUME 99.4 fl (80.0-96.0); PLATELET COUNT, AUTOMATED 287 10^3/uL (150-450); RED BLOOD COUNT 3.47 10^6/uL (4.00-5.40); WHITE BLOOD COUNT 9.2 10^3/uL (4.0-10.0)
[2019-09-19 07:08] LABS: BLOOD UREA NITROGEN 19 MG/DL (7-18); CALCIUM LEVEL 9.2 MG/DL (8.5-10.1); CARBON DIOXIDE LEVEL 38 MEQ/L (21-32); CHLORIDE LEVEL 99 MEQ/L (98-107); CREATININE FOR GFR 0.78 MG/DL (0.55-1.30); GLOMERULAR FILTRATION RATE > 60.0 (>51); GLUCOSE, FASTING 94 MG/DL (70-100); MAGNESIUM LEVEL 2.3 MG/DL (1.8-2.4); NT-PRO BNP 295 PG/ML (<125); POTASSIUM SERUM 4.5 MEQ/L (3.5-5.1); SODIUM LEVEL 139 MEQ/L (136-145)
[2019-09-19] MEDS: SYMBICORT 80/4.5MCG INHALER 6GM INH SCH ×2 (07:37→20:19)
[2019-09-19 10:00] VITALS: BP 107/72
[2019-09-19] MEDS: DOXYCYCLINE HYCLATE 100 MG TAB PO SCH ×2 (10:12→21:26)
[2019-09-19] MEDS: POTASSIUM CHLORIDE 10 MEQ SR TABLET PO SCH (10:12)
[2019-09-19] MEDS: predniSONE 20 MG TAB PO SCH ×3 (10:13→21:25)
[2019-09-19] MEDS: VALSARTAN 80 MG TAB (DIOVAN) PO SCH ×2 (10:13→21:25)
[2019-09-19] MEDS: SERTRALINE HCL 25 MG TABLET PO SCH (10:13)
[2019-09-19] MEDS: FAMOTIDINE 20 MG TAB PO SCH ×2 (10:13→21:26)
[2019-09-19] MEDS: guaiFENesin ER 600 MG TAB PO SCH ×2 (10:13→21:26)
[2019-09-19] MEDS: ENOXAPARIN 40 MG/0.4 ML SYRINGE (J1650) SC SCH (10:13)
--- NOTE | 2019-09-19 10:40 | IPNPDOC ---
Subjective Date Seen The patient was seen on 09/19/19. Subjective Chief Complaint/HPI breathing comfortable, still itchy Constitutional: Denies: Chills ENT: Denies: Head Aches Pulmonary: Denies: Cough, Pleuritic Chest Pain Cardiovascular: Denies: Chest Pain Gastrointestinal: Denies: Nausea, Vomiting, Abdominal Pain Genitourinary: Denies: Dysuria Hematologic: Denies: Bruising Endocrine: Denies: Polydipsia Musculoskeletal: Denies: Joint Pain, Spasms Neurological: Denies: Weakness, Change in speech Psych: Reports: Mood Normal Objective Physical Examination General Exam: Positive: Alert, No Acute Distress Eye Exam: Positive: Conjunctiva & lids normal (previously noted injection no longer visible.) Neck Exam: Negative: JVD Chest Exam: Positive: Wheezing, Diminished Heart Exam: Positive: Rate Normal Telemetry: Positive: No significant arrhythmia Abdomen Exam: Positive: Normal bowel sounds Extremity Exam: Negative: Edema Skin Exam: Positive: Other skin issue (red itchy patches, irregular on ankle, other locatioins) Psych Exam: Positive: Mental status NL Assessment /Plan Problems (1) Diastolic CHF, acute on chronic Status: Acute Problem Text: 09/19: no pitting edema noted this am. no rales noted. 0 change since 09/16 admission-? accuracy 09/18 increased BLE edema c 2 pruritus c restart SM; therefore, decreased to 40 QD, dc amlo 2.5 which will increase edema, decreased kathy 160 BID to 80 BID given SBP 110s and fur 20 IV x 1 c K 40 po x 2 09/17 held IV fur 09/17 TTE P 09/16 T-I 09/16 BNP 1159 (2) COPD with acute exacerbation Status: Acute Problem Text: 09/19, change doxy to po chronic 2L NC at hs only. D2 doxy; SM 40 09/18 AF, improved dyspnea-down to 1L 09/17 + SM 60 BID, guai/Acapella for secretion malclearance 09/17 CXR NAD 09/17 SCX P (3) Leukocytosis Status: Resolved Problem Text: c Tm 100.6 at 800 09/17 favor 2 COPD exac, but EM can cause both 09/18 AF and down to 6.9 (09/17 14.9) 09/16 BCX2 NG 09/16 RES PCR - (4) HTN (hypertension) Status: Acute Response to Treatment: Improving Problem Text: as per CHF HD: kathy 320, almo 2.5 (5) Erythema multiforme Status: Acute Response to Treatment: Improving Problem Text: 09/19: multiple possible causes, additional testing requested. Will change from IV glucocorticoid to PO. She has continued evidence of itchy rash on right medial ankle. no recurrence, ? 2 quoc (6) Nicotine use disorder Status: Chronic Problem Text: states she has quit c this flare-defers rx assistance (7) Oral candidiasis Status: Acute Problem Text: 09/19: notes continued improvement c secondary anorexia 09/18 improved appetite/taste 09/17 + nys QID (8) Physical deconditioning Status: Acute Problem Text: 09/18 NSDCH per PT Plan/VTE VTE Prophylaxis Ordered?: Yes Plan Anticipated Discharge: Home VS, I&O, 24H, Fishbone Vital Signs/I&O Vital Signs Date Time Temp Pulse Resp B/P (MAP) Pulse Ox O2 Delivery O2 Flow Rate FiO2 09/19/19 06:00 98.8 68 18 122/55 (77) 96 Nasal Cannula 2.0 I&O- Last 24 Hours up to 6 AM 09/19/19 05:59 Intake Total 710 ml Output Total 520 ml Balance 190 ml Laboratory Data 24H LABS Laboratory Tests 2 09/18/19 18:49: Urine Color YELLOW, Urine Appearance HAZY, Urine pH 5.0, Urine Specific [place] 1.015, Urine Protein NEGATIVE, Urine Glucose (UA) NEGATIVE, Urine Ketones NEGATIVE, Urine Blood 1+H, Urine Nitrite NEGATIVE, Urine Bilirubin NEGATIVE, Urine Urobilinogen 0.2, Urine Leukocyte Esterase NEGATIVE, Urine WBC (Auto) 2, Urine RBC (Auto) 1, Urine Hyaline Casts (Auto) 2, Urine Bacteria (Auto) NEGATIVE, Urine Squamous Epithelial Cells 2, Urine Mucus (Auto) SMALL, Urine Sperm (Auto) 09/19/19 06:18: Nucleated Red Blood Cells % (auto) 0.0, Anion Gap 2L, Glomerular Filtration Rate > 60.0, Calcium Level 9.2, Magnesium Level 2.3, CX-Ath-A-Type Natriuretic Peptide 295H 09/19/19 09:13: CBC/BMP Laboratory Tests 09/19/19 06:18 Microbiology Microbiology 09/16/19 Blood Culture - Preliminary, Resulted No Growth after 48 hours. All Specime... 09/16/19 Respiratory Virus Panel (PCR) ([facility]) - Final, Complete 09/16/19 Blood Culture - Preliminary, Resulted No Growth after 48 hours. All Specime... Ion Barahona MD Sep 19, 2019 10:39
[2019-09-19 14:00] VITALS: BP 111/70
--- NOTE | 2019-09-19 19:14 | ECHO ---
DATE OF PROCEDURE: 09/19/2019 REFERRING PHYSICIAN: Dr. Wolfe INDICATION: Congestive heart failure. Height 157 cm, weight 93 kg. DIMENSIONS: IVS: 1.2 LV: 5.0 LVPW: 1.3 LA: 4.7 Aorta: 3.0 IVC: 1.7 Mitral E wave velocity: 74 A wave: 88 E prime septal: 4.6 E prime lateral: 8.5 FINDINGS: The study is of fair technical quality with difficult visualization, corresponding to patient's body habitus. The patient is in sinus rhythm. Left ventricle is of normal size and overall preserved contractility. Estimated left ventricular ejection fraction (LVEF) 65-70%. I do not appreciate any segmental wall motion abnormalities. Right ventricle was poorly seen but grossly appears normal. Left atrium is moderately enlarged. Right atrium appears normal. Aortic valve is minimally sclerotic, but it is probably tricuspid. Based on 2D imaging, I assume mild aortic stenosis. Mitral valve exhibits minimal degenerative abnormalities but mobility of leaflets is preserved. Tricuspid valve appears normal. Pulmonic valve was not well seen. Pericardial fat pad but no effusion is noted. Inferior vena cava is of normal size. Aortic root is normal. Aortic arch and abdominal aorta were not well visualized. Doppler interrogation reveals no aortic insufficiency and minimal stenosis with mean gradient 13 mmHg. There is trace mitral and trace tricuspid insufficiency. Calculated pulmonary artery pressure is in 30s corresponding to mild pulmonary hypertension. Mitral inflow pattern and tissue Doppler imaging of mitral annulus revealed grade 1 diastolic dysfunction. CONCLUSIONS: 1. Study is of fair technical quality. 2. Normal left ventricular (LV) size with mild left ventricular hypertrophy (LVH) and preserved LV systolic function. Grade 1 diastolic dysfunction. 3. Aortic sclerosis with trivial stenosis and no insufficiency. 4. Mild mitral and tricuspid insufficiency. 5. Likely normal central venous pressure and mild pulmonary hypertension. COMMENT: Subacute bacterial endocarditis (SBE) prophylaxis is not recommended. Study is consistent with mild form of hypertensive heart disease. MTDD
[2019-09-19] MEDS: rOPINIRole 1MG TAB PO SCH (21:25)
[2019-09-19] MEDS: MONTELUKAST 10 MG TAB PO SCH (21:26)
[2019-09-19] MEDS: CETIRIZINE (ZyrTEC) 10 MG TAB PO SCH (21:26)
[2019-09-19 22:00] VITALS: BP 126/69
[2019-09-20] MEDS: IPRATROPIUM 0.5MG/ALBUTEROL 2.5MG INH SOL UD 3ML (DUONEB)(J7620) NEB SCH ×3 (01:19→13:47)
[2019-09-20 02:00] VITALS: BP 110/51
[2019-09-20 06:00] VITALS: BP 113/59
[2019-09-20] MEDS: NYSTATIN 500,000 U/5 ML SUSP UDC SS SCH ×2 (06:13→11:59)
[2019-09-20 06:14] LABS: HEMATOCRIT 33.7 % (36.0-47.0); MEAN CORPUSCULAR HEMOGLOBIN 32.2 pg (27.0-33.0); MEAN CORPUSCULAR HGB CONC 32.6 g/dl (32.0-36.5); MEAN CORPUSCULAR VOLUME 98.5 fl (80.0-96.0); PLATELET COUNT, AUTOMATED 267 10^3/uL (150-450); RED BLOOD COUNT 3.42 10^6/uL (4.00-5.40); WHITE BLOOD COUNT 8.1 10^3/uL (4.0-10.0)
[2019-09-20 06:37] LABS: BLOOD UREA NITROGEN 12 MG/DL (7-18); CALCIUM LEVEL 8.5 MG/DL (8.5-10.1); CARBON DIOXIDE LEVEL 34 MEQ/L (21-32); CHLORIDE LEVEL 100 MEQ/L (98-107); GLOMERULAR FILTRATION RATE > 60.0 (>51); GLUCOSE, FASTING 116 MG/DL (70-100); POTASSIUM SERUM 4.3 MEQ/L (3.5-5.1); SODIUM LEVEL 139 MEQ/L (136-145)
[2019-09-20] MEDS: SYMBICORT 80/4.5MCG INHALER 6GM INH SCH (08:10)
[2019-09-20] MEDS: ENOXAPARIN 40 MG/0.4 ML SYRINGE (J1650) SC SCH (08:56)
[2019-09-20 09:00] VITALS: BP 110/60
[2019-09-20] MEDS: SERTRALINE HCL 25 MG TABLET PO SCH (09:00)
[2019-09-20] MEDS: FAMOTIDINE 20 MG TAB PO SCH (09:00)
[2019-09-20] MEDS: VALSARTAN 80 MG TAB (DIOVAN) PO SCH (09:00)
[2019-09-20] MEDS: predniSONE 20 MG TAB PO SCH (09:00)
[2019-09-20] MEDS: DOXYCYCLINE HYCLATE 100 MG TAB PO SCH (09:00)
[2019-09-20] MEDS: guaiFENesin ER 600 MG TAB PO SCH (09:00)
[2019-09-20] MEDS: POTASSIUM CHLORIDE 10 MEQ SR TABLET PO SCH (09:01)
[2019-09-20 10:00] VITALS: BP 115/61
[2019-09-20] MEDS ORDERED: VALS1TAB49 PO (10:58)
[2019-09-20] MEDS ORDERED: PRED20TA PO (10:58)
[2019-09-20] MEDS ORDERED: NYST50SS SS (10:59)
[2019-09-20] MEDS ORDERED: DOXY100T PO (11:07)
--- NOTE | 2019-09-20 11:31 | DSES ---
DATE OF ADMISSION: 09/16/2019 DATE OF DISCHARGE: 09/20/2019 BRIEF HISTORY AND PHYSICAL: The patient is a 54-year-old patient recently admitted for erythema multiforme secondary to gabapentin who returned to the hospital complaining of increased lower extremity edema and dyspnea on exertion but an oxygen saturation 80% on room air when she came to the hospital. PAST MEDICAL HISTORY: Is significant for severe chronic obstructive pulmonary disease (COPD) with an FEV-1 of 0.7, tobacco abuse, hypertension, heart disease, chronic anxiety, depression, vitamin D deficiency, restless legs syndrome, and allergic rhinitis. PERTINENT LABORATORIES ON ADMISSION: Chest x-ray looked essentially clear. BNP was 1200. Echocardiogram in April showed an ejection fraction (EF) of 65% to the left atrium 37 mm, normal echocardiogram. She also had a stress test in May that was normal with an ejection fraction of 72%. HOSPITAL COURSE: The patient was admitted for congestive heart failure (CHF) with preserved ejection fraction, likely related to fluid retention from steroid therapy. Intravenous (IV) Lasix was ordered. Her echocardiogram was repeated during hospitalization. It showed mild LVH with preserved left ventricular systolic function, grade 1 diastolic dysfunction, aortic sclerosis with trivial stenosis, no insufficiency, likely normal central venous pressure and mild pulmonary hypertension. The patient was treated with IV Lasix with good diuresis. Diuretics were discontinued as her edema improved. She has had no recurrence of fluid retention. She will not be discharged on a diuretic. Erythema multiforme secondary to gabapentin, although additional testing has been ordered, including LENCHO and some serology testing, including Lyme, mycoplasma pneumoniae. She is on prednisone three times day. She has minimal itchy erythematous patch on her ankle but overall significantly improved erythema and itching that was diffusely present when she had been admitted at the last admission. COPD with exacerbation. She will be sent home on doxycycline. Remains on her prednisone and usual inhalers. Hypertension. Blood pressure was low. Amlodipine was held. Valsartan dose was decreased and will be decreased further upon discharge due to borderline hypotension at this point. Nicotine use disorder. She continues to smoke as an outpatient. She has quit multiple times when she is sick but usually goes back to smoking and has had repeated discussions in the office about the risks of persistent smoking, including worsening of her lung disease and cancer. Oral candidiasis. She is on nystatin swish and swallow. DISPOSITION: She is stable for discharge home. Followup with Irma Wolfe as scheduled this week. Diet no added salt. Activity as tolerated. MEDICATIONS: - doxycycline 100 mg twice a day - nystatin swish and swallow 5 mL every 6 hours - prednisone 20 mg three times a day - valsartan 40 mg twice a day - dose of this was decreased significantly - albuterol two puffs four times a day as needed for shortness of breath - Symbicort two puffs twice a day - cetirizine 10 mg at bedtime - diphenhydramine 50 mg every 6 hours as needed for itching - famotidine 20 mg twice a day - albuterol ipratropium nebulizer four times a day as needed - Singulair 10 mg at bedtime - oxycodone every 4 hours as needed for pain - ropinirole 1 mg at bedtime - sertraline 25 mg daily - Spiriva two inhalations daily - amlodipine was held - losartan 320 was decreased to 40 twice a day DISCHARGE DIAGNOSES: 1. Acute on chronic diastolic congestive heart failure. 2. Chronic obstructive pulmonary disease with exacerbation. 3. Erythema multiforme. 4. Hypertension. 5. Nicotine abuse. 6. Oral candidiasis. 7. Physical deconditioning. 8. Thrush. edited: 09/21/2019 0744 tyler LAWTON
[2019-09-21 00:06] LABS: ANA (HEP2) Negative (.)
[2019-09-22 00:15] LABS: Lyme Disease IgG/IgM Antibodie <0.91 ISR (0.00-0.90); Lyme Disease IgM Ab Quantitati <0.80 index (0.00-0.79); MYCOPLASMA PNEUMONIAE IgG 281 U/mL (0-99); MYCOPLASMA PNEUMONIAE IgM <770 U/mL (0-769)
== END 2019-09-20 14:10 | disposition home or self-care (01) | DRG 292 ==
LOC: M ED 10:40 → EDBD 10:40 → M ED INP 13:41 → M MSPAV 18:06 → M PCU 09-17 05:00 → M MSPAV 09-17 22:36
PROVIDERS: ADMIT Family Medicine; ATTEND Family Medicine
DX: I11.0 Hypertensive heart disease with heart failure (principal); J44.1 Chronic obstructive pulmonary disease with (acute) exacerbation; B37.0 Candidal stomatitis; I50.33 Acute on chronic diastolic (congestive) heart failure; Z87.891 Personal history of nicotine dependence; F41.9 Anxiety disorder, unspecified; F32.9 Major depressive disorder, single episode, unspecified; G25.81 Restless legs syndrome; J30.9 Allergic rhinitis, unspecified; Z88.1 Allergy status to other antibiotic agents; Z88.8 Allergy status to other drugs, medicaments and biological substances; Z90.49 Acquired absence of other specified parts of digestive tract; F17.210 Nicotine dependence, cigarettes, uncomplicated; L51.9 Erythema multiforme, unspecified; D72.829 Elevated white blood cell count, unspecified

== ENCOUNTER → 2020-01-05 | Outpatient (REF) | payer MEDICARE, MEDICAID ==
[~2020-01-05] MED LIST changes: +COMMENTS; +DOXY100T PO; +FAMO20TA4 PO; +FAMO40TA3 PO; +NYST50SS SS; +VALS40TA9 PO
== END ==
LOC: M LAB REF 12:36
PROVIDERS: ATTEND Physician Assistant
DX: J02.9 Acute pharyngitis, unspecified (principal)

== ENCOUNTER → 2020-01-20 | Outpatient (CLI) | payer MEDICARE, MEDICAID ==
[~2020-01-20] MED LIST changes: -CLAR500T PO; +CLAR500T97 PO; -ROPI0.5T PO; +ROPI0.5T3 PO
[2020-01-20 17:17] LABS: BASO % 0.3 % (0.0-1.0); EOS # 0.1 10^3/uL (0.0-0.5); EOS % 1.8 % (0.0-3.0); HEMATOCRIT 40.4 % (36.0-47.0); HEMOGLOBIN 12.7 g/dl (12.0-15.5); LYMPH # 1.8 10^3/uL (1.5-5.0); LYMPH % 23.4 % (24.0-44.0); MEAN CORPUSCULAR HEMOGLOBIN 30.7 pg (27.0-33.0); MEAN CORPUSCULAR HGB CONC 31.4 g/dl (32.0-36.5); MEAN CORPUSCULAR VOLUME 97.6 fl (80.0-96.0); MONO # 0.4 10^3/uL (0.0-0.8); MONO % 4.9 % (0.0-5.0); NEUTROPHILS # 5.3 10^3/uL (1.5-8.5); NEUTROPHILS % 69.3 % (36.0-66.0); PLATELET COUNT, AUTOMATED 247 10^3/uL (150-450); RED BLOOD COUNT 4.14 10^6/uL (4.00-5.40); WHITE BLOOD COUNT 7.7 10^3/uL (4.0-10.0)
[2020-01-20 17:40] LABS: ALBUMIN 3.4 GM/DL (3.2-5.2); ALT/SGPT 17 U/L (12-78); BILIRUBIN,TOTAL 0.1 MG/DL (0.2-1.0); BLOOD UREA NITROGEN 7 MG/DL (7-18); CARBON DIOXIDE LEVEL 35 MEQ/L (21-32); CHLORIDE LEVEL 99 MEQ/L (98-107); CREATININE FOR GFR 0.66 MG/DL (0.55-1.30); GLOMERULAR FILTRATION RATE > 60.0 (>51); GLUCOSE, FASTING 89 MG/DL (70-100); NT-PRO BNP 42 PG/ML (<125); POTASSIUM SERUM 4.4 MEQ/L (3.5-5.1); SODIUM LEVEL 137 MEQ/L (136-145)
== END ==
LOC: M PLALAB 14:26
PROVIDERS: ATTEND Physician Assistant
DX: R60.0 Localized edema (principal)
CPT/HCPCS: 36415; 80053; 85025; G0463

== ENCOUNTER → 2020-02-07 | Outpatient (REF) | payer MEDICARE, MEDICAID ==
[2020-02-07 13:45] LABS: BLOOD UREA NITROGEN 6 MG/DL (7-18); CALCIUM LEVEL 9.6 MG/DL (8.5-10.1); CARBON DIOXIDE LEVEL 37 MEQ/L (21-32); CHLORIDE LEVEL 98 MEQ/L (98-107); CREATININE FOR GFR 0.69 MG/DL (0.55-1.30); GLOMERULAR FILTRATION RATE > 60.0 (>51); GLUCOSE, FASTING 95 MG/DL (70-100); POTASSIUM SERUM 4.7 MEQ/L (3.5-5.1); SODIUM LEVEL 138 MEQ/L (136-145)
== END ==
LOC: M SFHCADAM 08:17
PROVIDERS: ATTEND Physician Assistant
DX: R60.0 Localized edema (principal)
CPT/HCPCS: 80048; G0463

== ENCOUNTER → 2020-03-02 | Outpatient (CLI) | payer MEDICARE, MEDICAID ==
[2020-03-02 16:47] LABS: BASO % 0.3 % (0.0-1.0); EOS # 0.2 10^3/uL (0.0-0.5); EOS % 3.4 % (0.0-3.0); HEMATOCRIT 41.9 % (36.0-47.0); HEMOGLOBIN 13.6 g/dl (12.0-15.5); LYMPH # 1.4 10^3/uL (1.5-5.0); LYMPH % 23.2 % (24.0-44.0); MEAN CORPUSCULAR HEMOGLOBIN 31.5 pg (27.0-33.0); MEAN CORPUSCULAR HGB CONC 32.5 g/dl (32.0-36.5); MONO # 0.4 10^3/uL (0.0-0.8); MONO % 6.5 % (0.0-5.0); NEUTROPHILS # 3.9 10^3/uL (1.5-8.5); NEUTROPHILS % 66.4 % (36.0-66.0); PLATELET COUNT, AUTOMATED 226 10^3/uL (150-450); RED BLOOD COUNT 4.32 10^6/uL (4.00-5.40); WHITE BLOOD COUNT 5.8 10^3/uL (4.0-10.0)
[2020-03-02 17:15] LABS: ALBUMIN 3.5 GM/DL (3.2-5.2); ALT/SGPT 18 U/L (12-78); BILIRUBIN,TOTAL 0.2 MG/DL (0.2-1.0); BLOOD UREA NITROGEN 7 MG/DL (7-18); CARBON DIOXIDE LEVEL 36 MEQ/L (21-32); CHLORIDE LEVEL 101 MEQ/L (98-107); CREATININE FOR GFR 0.74 MG/DL (0.55-1.30); GLOMERULAR FILTRATION RATE > 60.0 (>51); GLUCOSE, FASTING 80 MG/DL (70-100); POTASSIUM SERUM 4.7 MEQ/L (3.5-5.1); SODIUM LEVEL 138 MEQ/L (136-145); TOTAL PROTEIN 7.4 GM/DL (6.4-8.2)
[2020-03-02 17:20] LABS: THYROID PEROXIDASE ANTIBODY < 28.0 U/ML (<60.0)
== END ==
LOC: M LABDRWAD 13:43
PROVIDERS: ATTEND Allergy & Immunology
DX: L50.3 Dermatographic urticaria (principal); R53.81 Other malaise

== ENCOUNTER → 2020-03-07 | Outpatient (CLI) | payer MEDICARE, MEDICAID ==
--- NOTE | 2020-03-07 14:39 | REP ---
REASON: Dyspnea. COMPARISON: Multiple, the latest 09/17/2019 a portable exam. FINDINGS: The superior mediastinal structures are midline. The cardiac silhouette is unremarkable in size, shape, and position. The diaphragmatic surfaces of the lungs are regular, and the costophrenic angles are clear. The pulmonary garg are clear. The imaged osseous structures are intact. IMPRESSION: There is no acute cardiopulmonary disease. No significant change from the prior exam other than technique. Electronically Signed by Clement Martell DO 03/07/2020 04:59 P
== END ==
LOC: M ADAMS 14:20
PROVIDERS: ATTEND Physician Assistant
DX: R06.02 Shortness of breath (principal)
CPT/HCPCS: 71046; G0463

== ENCOUNTER → 2020-03-12 | Outpatient (REF) | payer MEDICARE, MEDICAID | LOC: M SFHCADAM 16:07 | PROVIDERS: ATTEND Physician Assistant Medical | DX: R05 Cough (principal) | CPT/HCPCS: 87070; 87077; 87184; 87205; G0463 ==

== ENCOUNTER → 2020-03-20 | Outpatient (CLI) | payer MEDICARE, MEDICAID ==
--- NOTE | 2020-03-20 11:43 | REP ---
REASON: History of severe COPD. COMPARISON: None. There is an enlarged right paratracheal lymph node which measures 1.1 cm. There is no other adenopathy in the mediastinum or pulmonary bryson. There are no pleural or pericardial effusions. The imaged upper abdomen and imaged osseous structures are within normal limits. Evaluation of the lung garg shows lung garg hyperexpansion with scattered parenchymal bulla and pleural blebs, particularly in the apical regions. There is cylindrical bronchiectasis with peribronchial thickening. Seen in the right lung base, there is a 7 mm sized pleural-based nodular density and a much smaller 3 mm sized nodular density in the left lung base. There are a few scattered tiny millimeter sized reticulonodular densities seen bilaterally. Lung base imaged obtained during abdominal and pelvic CT scanning of 09/22/2016 do not show the aforementioned bibasilar pleural-based nodules. IMPRESSION: 1. Right paratracheal adenopathy. 2. Chronic lung field changes with emphysematous changes and suspected fibrotic changes as described above. There is cylindrical bronchiectasis with peribronchial thickening also consistent with chronic lung disease. 3. The bibasilar densities described above likely represent small focal areas of subsegmental atelectatic change, however, since there are no prior examinations for comparison, I would recommend a 3-month followup as per the revised Fleischner Society criteria. 4. Other findings as described above. Electronically Signed by Clement Martell DO 03/20/2020 12:33 P
[2020-03-20 12:01] LABS: HEMATOCRIT 37.4 % (36.0-47.0); HEMOGLOBIN 11.8 g/dl (12.0-15.5); MEAN CORPUSCULAR HEMOGLOBIN 30.6 pg (27.0-33.0); MEAN CORPUSCULAR HGB CONC 31.6 g/dl (32.0-36.5); MEAN CORPUSCULAR VOLUME 97.1 fl (80.0-96.0); PLATELET COUNT, AUTOMATED 252 10^3/uL (150-450); RED BLOOD COUNT 3.85 10^6/uL (4.00-5.40)
[2020-03-20 12:49] LABS: ALBUMIN 2.9 GM/DL (3.2-5.2); ALT/SGPT 14 U/L (12-78); BILIRUBIN,TOTAL 0.2 MG/DL (0.2-1.0); BLOOD UREA NITROGEN 8 MG/DL (7-18); CALCIUM LEVEL 9.2 MG/DL (8.5-10.1); CARBON DIOXIDE LEVEL 36 MEQ/L (21-32); CHLORIDE LEVEL 97 MEQ/L (98-107); CREATININE FOR GFR 0.76 MG/DL (0.55-1.30); GLOMERULAR FILTRATION RATE > 60.0 (>51); GLUCOSE, FASTING 110 MG/DL (70-100); NT-PRO BNP 38 PG/ML (<125); POTASSIUM SERUM 4.5 MEQ/L (3.5-5.1); SODIUM LEVEL 136 MEQ/L (136-145)
--- NOTE | 2020-03-20 20:59 | ECHO ---
DATE OF PROCEDURE: 03/20/2020 Date of : 1965 Age: 54 Gender: Female Height: 62 inches Weight: 194 pounds Body surface area: 1.88 meters squared Outpatient. REFERRING PROVIDER: Sabra Wolfe INDICATION: CHF (unspecified). MEASUREMENTS: 2D Measurements: RV: 2.9 cm LV: 4.2 cm Septum: 1.0 cm Posterior wall: 0.9 cm Aortic root: 2.4 cm LA: 3.4 cm LVEF: 75% Doppler Measurements: AV: 1.54 meters per second LVOT: 1.06 meters per second LVOT diameter: 1.8 cm MV-E: 75, A: 90, EA ratio: 0.9 Early mitral deceleration time: 190 milliseconds E prime medial: 9.1, A prime medial: 6.9, E prime lateral: 10.3. Average E/E prime ratio: 9.3/pulmonary capillary wedge pressure: 13.4 mmHg. PV: 0.85 meters per second Pulmonary artery acceleration time: 66 milliseconds PASP: 49 mmHg IVC: 1.6 cm COMMENTS: Normal sinus rhythm without intraventricular conduction disturbance. Technically difficult study in light of the patient's body habitus but some diagnostically useful information was still obtained. Normal left ventricular size, wall thickness and hyperkinetic wall motion. Normal left atrial size with Doppler signs suggestive of grade 1 left ventricular (LV) diastolic dysfunction but currently normal estimated mean left atrial pressure. Normal right heart chamber sizes and motion with single Doppler sign of moderate pulmonary hypertension. Normal inferior vena cava (IVC) size and collapse against an elevated central venous pressure. Difficult to visualize valvular structures, but there was no clear recognized abnormality and Doppler flow signals were within normal limits (no significant obstruction or insufficiency). Normal aortic diameters. No apparent intracardiac mass or pericardial effusion.
== END ==
LOC: M RAD 10:22
PROVIDERS: ATTEND Physician Assistant
DX: R91.8 Other nonspecific abnormal finding of lung field (principal); J44.9 Chronic obstructive pulmonary disease, unspecified; F17.218 Nicotine dependence, cigarettes, with other nicotine-induced disorders; R09.02 Hypoxemia; I50.33 Acute on chronic diastolic (congestive) heart failure; R05 Cough
CPT/HCPCS: 36415; 71250; 80053; 83880; 85027; 93306; G0463

== ENCOUNTER → 2020-03-21 | Outpatient (REF) | payer MEDICARE, MEDICAID | LOC: M LAB REF 16:43 | PROVIDERS: ATTEND Internal Medicine Pulmonary Disease | DX: R06.02 Shortness of breath (principal); J43.1 Panlobular emphysema ==

== ENCOUNTER → 2020-03-21 | Outpatient (REF) | payer MEDICARE, MEDICAID | LOC: M LAB REF 16:31 | PROVIDERS: ATTEND Internal Medicine Pulmonary Disease | DX: J43.1 Panlobular emphysema (principal) ==

== ENCOUNTER → 2020-03-26 | Outpatient (CLI) | payer MEDICARE, MEDICAID ==
[2020-03-26 13:09] LABS: CALCIUM LEVEL 9.2 MG/DL (8.5-10.1); CREATININE FOR GFR 1.12 MG/DL (0.55-1.30)
== END ==
LOC: M LAB 11:41
PROVIDERS: ATTEND Physician Assistant
DX: I50.32 Chronic diastolic (congestive) heart failure (principal)

== ENCOUNTER → 2020-03-26 | Outpatient (CLI) | payer MEDICARE, MEDICAID ==
[2020-03-26 13:10] LABS: TOTAL PROTEIN 7.8 GM/DL (6.4-8.2)
== END ==
LOC: M LAB 11:45
PROVIDERS: ATTEND Allergy & Immunology
DX: R79.9 Abnormal finding of blood chemistry, unspecified (principal); R53.81 Other malaise; I50.32 Chronic diastolic (congestive) heart failure

== ENCOUNTER → 2020-05-02 | Outpatient (CLI) | payer MEDICARE, MEDICAID ==
[2020-05-02 09:47] LABS: BLOOD UREA NITROGEN 5 MG/DL (7-18); CALCIUM LEVEL 9.1 MG/DL (8.5-10.1); CARBON DIOXIDE LEVEL 36 MEQ/L (21-32); CHLORIDE LEVEL 98 MEQ/L (98-107); CREATININE FOR GFR 0.78 MG/DL (0.55-1.30); GLOMERULAR FILTRATION RATE > 60.0 (>51); GLUCOSE, FASTING 82 MG/DL (70-100); POTASSIUM SERUM 3.9 MEQ/L (3.5-5.1); SODIUM LEVEL 138 MEQ/L (136-145)
== END ==
LOC: M LAB 08:28
PROVIDERS: ATTEND Physician Assistant
DX: I50.32 Chronic diastolic (congestive) heart failure (principal)

== ENCOUNTER → 2020-05-17 | Outpatient (CLI) | payer MEDICARE, MEDICAID ==
[~2020-05-17] MED LIST changes: +ATOR1TAB19 PO; +FURO80TA2 PO; +HYDR-3363 PO
--- NOTE | 2020-05-22 10:21 | REPMRS ---
Patient History The patient states she had a clinical breast exam in April 2020.No known family history of cancer. No Hormone Replacement Therapy Digital Woman Screen Mammo: May 17, 2020 - Exam #: [id number] Bilateral CC and MLO view(s) were taken. Technologist: Ratna Moreno, Technologist Prior study comparison: February 15, 2019, bilateral digital woman screen mammo performed at [facility]. January 14, 2017, digital woman screen mammo performed at [facility]. January 07, 2016, digital woman screen mammo performed at [facility]. FINDINGS: There are scattered fibroglandular densities. The Volpara volumetric breast density category is:B. There are scattered benign calcifications on the left again noted. There has been no change in the appearance of the mammogram from the prior studies. There is a mild amount of scattered fibroglandular density which is fairly symmetric. There is no interval development of dominant mass, architectural distortion, or grouped microcalcification suggestive of malignancy. 3-D tomosynthesis shows no additional findings. Assessment: BI-RADS/ACR category 2 mammogram. Benign Findings. Recommendation Routine screening mammogram of both breasts in 1 year (for women over age 40). This patient's Lifetime Breast Cancer Risk is estimated at 8.4 %. This mammogram was interpreted with the aid of an FDA-approved computer-aided dectection system. Electronically Signed By: Chaparro Lawrence MD 05/22/20 [id number]
== END ==
LOC: M WHC 10:28
PROVIDERS: ATTEND Nurse Practitioner Family
DX: Z12.31 Encounter for screening mammogram for malignant neoplasm of breast (principal)

== ENCOUNTER → 2020-05-28 | Outpatient (CLI) | payer MEDICARE, MEDICAID ==
[2020-05-28 11:15] LABS: BLOOD UREA NITROGEN 6 MG/DL (7-18); CALCIUM LEVEL 9.4 MG/DL (8.5-10.1); CARBON DIOXIDE LEVEL 36 MEQ/L (21-32); CHLORIDE LEVEL 98 MEQ/L (98-107); CREATININE FOR GFR 0.85 MG/DL (0.55-1.30); GLOMERULAR FILTRATION RATE > 60.0 (>51); GLUCOSE, FASTING 92 MG/DL (70-100); MAGNESIUM LEVEL 2.3 MG/DL (1.8-2.4); POTASSIUM SERUM 3.8 MEQ/L (3.5-5.1); SODIUM LEVEL 138 MEQ/L (136-145)
== END ==
LOC: M LAB 09:33
PROVIDERS: ATTEND Physician Assistant
DX: I50.32 Chronic diastolic (congestive) heart failure (principal)

== ENCOUNTER → 2020-06-12 | Outpatient (CLI) | payer MEDICARE, MEDICAID ==
[~2020-06-12] MED LIST changes: +ACET650T61 PO; -TYLE650T35 PO
--- NOTE | 2020-06-12 16:19 | REP ---
REASON FOR EXAM: Followup. The latest prior for comparison of 03/20/2020 showed bibasilar opacities without a prior for comparison and for which this examination was performed to followup. There is a borderline right paratracheal lymph node status quo. There are no pleural or pericardial effusions. There is no change in the imaged upper abdomen or imaged osseous structures. Evaluation of the lung garg shows resolution of the curvilinear basilar densities but with a new small density in the right CP angle. The lungs garg are otherwise stable. There are fibrotic changes particularly in the left upper lobe regions bilaterally. IMPRESSION: 1. Stable borderline right paratracheal lymph node. 2. Lung RADS category 2 lung field findings as described above. Yearly CT screening is recommended. 3. Emphysematous changes. Electronically Signed by Clement Martell DO 06/12/2020 04:56 P
== END ==
LOC: M RAD 12:05
PROVIDERS: ATTEND Internal Medicine Pulmonary Disease
DX: R91.8 Other nonspecific abnormal finding of lung field (principal); R59.9 Enlarged lymph nodes, unspecified

== ENCOUNTER → 2020-08-27 | Outpatient (CLI) | payer MEDICARE, MEDICAID ==
[2020-08-27 11:50] LABS: BLOOD UREA NITROGEN 7 MG/DL (7-18); CALCIUM LEVEL 9.1 MG/DL (8.5-10.1); CARBON DIOXIDE LEVEL 32 MEQ/L (21-32); CHLORIDE LEVEL 101 MEQ/L (98-107); CREATININE FOR GFR 0.76 MG/DL (0.55-1.30); GLOMERULAR FILTRATION RATE > 60.0 (>51); GLUCOSE, FASTING 92 MG/DL (70-100); POTASSIUM SERUM 4.1 MEQ/L (3.5-5.1); SODIUM LEVEL 137 MEQ/L (136-145)
== END ==
LOC: M LAB 10:16
PROVIDERS: ATTEND Physician Assistant
DX: I50.32 Chronic diastolic (congestive) heart failure (principal)

== ENCOUNTER → 2020-10-02 | Outpatient (CLI) | payer MEDICARE, MEDICAID ==
[2020-10-02 09:53] LABS: HEMATOCRIT 38.8 % (36.0-47.0); HEMOGLOBIN 12.6 g/dl (12.0-15.5); MEAN CORPUSCULAR HEMOGLOBIN 30.7 pg (27.0-33.0); MEAN CORPUSCULAR HGB CONC 32.5 g/dl (32.0-36.5); MEAN CORPUSCULAR VOLUME 94.6 fl (80.0-96.0); PLATELET COUNT, AUTOMATED 241 10^3/uL (150-450); WHITE BLOOD COUNT 6.2 10^3/uL (4.0-10.0)
[2020-10-02 10:27] LABS: BLOOD UREA NITROGEN 7 MG/DL (7-18); CALCIUM LEVEL 9.5 MG/DL (8.5-10.1); CARBON DIOXIDE LEVEL 37 MEQ/L (21-32); CHLORIDE LEVEL 98 MEQ/L (98-107); CREATININE FOR GFR 0.83 MG/DL (0.55-1.30); GLOMERULAR FILTRATION RATE > 60.0 (>51); GLUCOSE, FASTING 92 MG/DL (70-100); MAGNESIUM LEVEL 2.3 MG/DL (1.8-2.4); NT-PRO BNP 45 PG/ML (<125); SODIUM LEVEL 137 MEQ/L (136-145)
== END ==
LOC: M LAB 09:22
PROVIDERS: ATTEND Physician Assistant
DX: I50.32 Chronic diastolic (congestive) heart failure (principal); E83.42 Hypomagnesemia

== ENCOUNTER → 2020-10-28 | Outpatient (CLI) | payer MEDICARE, MEDICAID ==
[2020-10-28 12:19] LABS: BLOOD UREA NITROGEN 7 MG/DL (7-18); CALCIUM LEVEL 9.5 MG/DL (8.5-10.1); CARBON DIOXIDE LEVEL 39 MEQ/L (21-32); CHLORIDE LEVEL 96 MEQ/L (98-107); CREATININE FOR GFR 0.86 MG/DL (0.55-1.30); GLOMERULAR FILTRATION RATE > 60.0 (>51); GLUCOSE, FASTING 99 MG/DL (70-100); POTASSIUM SERUM 4.6 MEQ/L (3.5-5.1); SODIUM LEVEL 136 MEQ/L (136-145)
== END ==
LOC: M LAB 11:06
PROVIDERS: ATTEND Physician Assistant
DX: I50.32 Chronic diastolic (congestive) heart failure (principal)

== ENCOUNTER → 2020-11-29 | Outpatient (CLI) | payer MEDICARE, MEDICAID ==
[2020-11-29 10:45] LABS: ALBUMIN 3.2 GM/DL (3.2-5.2); ALT/SGPT 13 U/L (12-78); BILIRUBIN,TOTAL 0.2 MG/DL (0.2-1.0); BLOOD UREA NITROGEN 7 MG/DL (7-18); CALCIUM LEVEL 8.8 MG/DL (8.5-10.1); CARBON DIOXIDE LEVEL 38 MEQ/L (21-32); CHLORIDE LEVEL 100 MEQ/L (98-107); CHOLESTEROL LEVEL 193 MG/DL (<200); CHOLESTEROL RISK RATIO 4.195 (<5); CREATININE FOR GFR 0.71 MG/DL (0.55-1.30); GLOMERULAR FILTRATION RATE > 60.0 (>51); GLUCOSE, FASTING 94 MG/DL (70-100); HDL CHOLESTEROL 46 MG/DL (>40); LDL CHOLESTEROL 110 MG/DL (<100); NON-HDL-C 147 MG/DL; POTASSIUM SERUM 4.5 MEQ/L (3.5-5.1); SODIUM LEVEL 139 MEQ/L (136-145); TRIGLYCERIDES LEVEL 183 MG/DL (<150)
== END ==
LOC: M LAB 09:25
PROVIDERS: ATTEND Physician Assistant
DX: I50.32 Chronic diastolic (congestive) heart failure (principal)

== ENCOUNTER → 2021-01-30 | Outpatient (CLI) | payer MEDICARE, MEDICAID ==
[~2021-01-30] MED LIST changes: +FURO40TA2 PO
--- NOTE | 2021-01-30 12:18 | REP ---
INDICATION: SHORTNESS OF BREATH COMPARISON: 03/07/2020 TECHNIQUE: PA and lateral. FINDINGS: The mediastinum and cardiac silhouette are normal. The lung garg are clear and without acute consolidation, effusion, or pneumothorax. The skeletal structures are intact and normal. IMPRESSION: No acute cardiopulmonary process. <Electronically signed by Fahad Irwin > 01/30/21 0616
== END ==
LOC: M RAD 11:52
PROVIDERS: ATTEND Internal Medicine Pulmonary Disease
DX: R06.02 Shortness of breath (principal)

== ENCOUNTER 2021-02-04 12:30 | Emergency (ER) | payer MEDICARE, MEDICAID ==
[~2021-02-04] VITALS: Ht 157.5 cm; Wt 87.4 kg
[~2021-02-04 12:30] MED LIST changes: -FURO40TA2 PO
--- NOTE | 2021-02-04 13:12 | REP ---
INDICATION: CHEST PAIN COMPARISON: 01/30/2021 TECHNIQUE: Portable AP view of the chest FINDINGS: The mediastinum and cardiac silhouette are stable and within normal limits for portable technique. The lung garg are clear without acute consolidation, effusion, or pneumothorax. Skeletal structures are intact. IMPRESSION: No acute cardiopulmonary process appreciated. <Electronically signed by Fahad Irwin > 02/04/21 [id number]
[2021-02-04 13:19] LABS: BASO % 0.2 % (0.0-1.0); EOS # 0.2 10^3/uL (0.0-0.5); EOS % 1.3 % (0.0-3.0); HEMATOCRIT 40.8 % (36.0-47.0); HEMOGLOBIN 12.9 g/dl (12.0-15.5); LYMPH # 3.7 10^3/uL (1.5-5.0); LYMPH % 30.9 % (24.0-44.0); MEAN CORPUSCULAR HEMOGLOBIN 29.6 pg (27.0-33.0); MEAN CORPUSCULAR HGB CONC 31.6 g/dl (32.0-36.5); MEAN CORPUSCULAR VOLUME 93.6 fl (80.0-96.0); MONO # 0.6 10^3/uL (0.0-0.8); MONO % 4.6 % (2.0-8.0); NEUTROPHILS # 7.5 10^3/uL (1.5-8.5); NEUTROPHILS % 62.5 % (36.0-66.0); PLATELET COUNT, AUTOMATED 304 10^3/uL (150-450); RED BLOOD COUNT 4.36 10^6/uL (4.00-5.40); WHITE BLOOD COUNT 12.1 10^3/uL (4.0-10.0)
--- NOTE | 2021-02-04 13:32 | REP ---
INDICATION: swelling COMPARISON: None. TECHNIQUE: Real time compression and duplex Doppler interrogation of the left lower extremity deep venous system is performed. FINDINGS: The left common femoral, superficial femoral and popliteal veins are fully compressible with transducer pressure and demonstrate normal spontaneous and phasic flow, without evidence of deep venous thrombosis. IMPRESSION: No evidence of deep venous thrombosis of the left lower extremity femoral popliteal venous system. <Electronically signed by Agusto Hendrix > 02/04/21 [id number]
[2021-02-04 13:52] LABS: ALBUMIN 3.3 GM/DL (3.2-5.2); ALT/SGPT 16 U/L (12-78); BILIRUBIN,DIRECT < 0.1 MG/DL (0.0-0.2); BILIRUBIN,TOTAL 0.1 MG/DL (0.2-1.0); LIPASE 139 U/L (73-393); NT-PRO BNP 55 PG/ML (<125); TOTAL PROTEIN 7.2 GM/DL (6.4-8.2)
[2021-02-04] MEDS ORDERED: FURO40TA2 PO (14:00)
[2021-02-04] MEDS ORDERED: PRED10TA2 PO (14:00)
[2021-02-04] MEDS ORDERED: POTASSIUM CHLORIDE 10 MEQ SR TABLET PO ONE (14:10)
[2021-02-04] MEDS ORDERED: ISOVUE-370 76% 100ML VIAL As Ordered ONE (14:14)
--- NOTE | 2021-02-04 14:37 | REP ---
INDICATION: Cp/SOB COMPARISON: 06/12/2020 TECHNIQUE: Axial contrast enhanced images from the thoracic inlet to the upper abdomen using pulmonary embolus technique with multiplanar re-formations. 75 ml Isovue 370 intravenous contrast material administered without complication. This CT examination was performed using the following dose reduction techniques: Automated exposure control, adjustment of mA and/or kv according to the patient's size, and use of iterative reconstruction technique. FINDINGS: Satisfactory enhancement of the pulmonary vasculature is achieved and no filling defects are identified to suggest pulmonary embolus. Further evaluation of the mediastinum demonstrates normal thoracic aorta without aneurysm or dissection. Heart and pericardium are grossly normal. The bilateral lung garg demonstrate advanced emphysematous changes with minimal scattered scarring. No effusion. No pneumothorax. No significant adenopathy. Musculoskeletal structures demonstrate degenerative changes without acute osseous abnormality. Upper abdomen demonstrates normal bilateral adrenal glands and evidence for prior cholecystectomy. IMPRESSION: No evidence for pulmonary embolus. No acute mediastinal or pleural parenchymal process. Advanced emphysematous changes. <Electronically signed by Fahad Irwin > 02/04/21 [id number]
--- NOTE | 2021-02-04 16:05 | ECGEPIP ---
[facility] - ED Test Date: 2021-02-04 Pat Name: ED MORENO Department: Room: - Gender: Female College Director: idalmis : 1965 Requested By: Margie Shen Order Number: [id number] Reading MD: Charlie Colindres Measurements Intervals [place] Rate: 77 P: 78 ME: 142 QRS: 66 QRSD: 76 T: 68 QT: 372 QTc: 420 Interpretive Statements Normal sinus rhythm Nonspecific T wave abnormality BASELINE ARTIFACT AFFECTS INTERPRETATION SIMILAR TO 09/17/19 Electronically Signed on 02-04-2021 16:05:43 EST by Charlie Colindres
[2021-02-04 19:15] VITALS: BP 113/61
== END 2021-02-04 19:35 | disposition home or self-care (01) ==
LOC: M ED 12:30
DX: J44.9 Chronic obstructive pulmonary disease, unspecified (principal); R60.0 Localized edema; I10 Essential (primary) hypertension; E78.9 Disorder of lipoprotein metabolism, unspecified; Z79.899 Other long term (current) drug therapy; Z88.1 Allergy status to other antibiotic agents; Z88.8 Allergy status to other drugs, medicaments and biological substances; F17.210 Nicotine dependence, cigarettes, uncomplicated
CPT/HCPCS: 36415; 71045; 71275; 80047; 80076; 83690; 83880; 84443; 84484; 85025; 93005; 93041; 93971; 94760; 99285; Q9967

== ENCOUNTER → 2021-03-18 | Outpatient (CLI) | payer MEDICARE, MEDICAID ==
[~2021-03-18] MED LIST changes: +FURO40TA2 PO
--- NOTE | 2021-03-18 12:16 | REP ---
INDICATION: CHRONIC DIASTOLIC (CONGESTIVE) HEART FAILURE LAB 1ST COMPARISON: 01/30/2021 TECHNIQUE: PA and lateral. FINDINGS: The mediastinum and cardiac silhouette are normal. The lung garg are clear and without acute consolidation, effusion, or pneumothorax. The skeletal structures demonstrate age-related changes and pronounced chronic degenerative changes to the right shoulder IMPRESSION: No acute cardiopulmonary process. <Electronically signed by Fahad Irwin > 03/18/21 [id number]
[2021-03-18 14:07] LABS: ALBUMIN 3.4 GM/DL (3.2-5.2); ALT/SGPT 18 U/L (12-78); BILIRUBIN,TOTAL 0.2 MG/DL (0.2-1.0); BLOOD UREA NITROGEN 8 MG/DL (7-18); CALCIUM LEVEL 9.4 MG/DL (8.5-10.1); CARBON DIOXIDE LEVEL 40 MEQ/L (21-32); CHLORIDE LEVEL 96 MEQ/L (98-107); CHOLESTEROL LEVEL 199 MG/DL (<200); GLOMERULAR FILTRATION RATE > 60.0 (>51); GLUCOSE, FASTING 110 MG/DL (70-100); HDL CHOLESTEROL 50 MG/DL (>40); LDL CHOLESTEROL 116 MG/DL (<100); NON-HDL-C 149 MG/DL; POTASSIUM SERUM 4.5 MEQ/L (3.5-5.1); SODIUM LEVEL 138 MEQ/L (136-145); TOTAL PROTEIN 7.3 GM/DL (6.4-8.2); TRIGLYCERIDES LEVEL 165 MG/DL (<150)
[2021-03-18 14:08] LABS: MAGNESIUM LEVEL 2.3 MG/DL (1.8-2.4); NT-PRO BNP 32 PG/ML (<125)
== END ==
LOC: M LAB 10:59
PROVIDERS: ATTEND Physician Assistant
DX: I50.32 Chronic diastolic (congestive) heart failure (principal)

== ENCOUNTER → 2021-04-10 | Outpatient (CLI) | payer MEDICARE, MEDICAID ==
[2021-04-10 12:19] LABS: ALBUMIN 3.3 GM/DL (3.2-5.2); ALT/SGPT 16 U/L (12-78); BILIRUBIN,TOTAL 0.2 MG/DL (0.2-1.0); BLOOD UREA NITROGEN 10 MG/DL (7-18); CALCIUM LEVEL 9.5 MG/DL (8.5-10.1); CARBON DIOXIDE LEVEL 38 MEQ/L (21-32); CHLORIDE LEVEL 96 MEQ/L (98-107); CHOLESTEROL LEVEL 195 MG/DL (<200); CHOLESTEROL RISK RATIO 3.545 (<5); CREATININE FOR GFR 0.76 MG/DL (0.55-1.30); GLOMERULAR FILTRATION RATE > 60.0 (>51); GLUCOSE, FASTING 99 MG/DL (70-100); HDL CHOLESTEROL 55 MG/DL (>40); LDL CHOLESTEROL 104 MG/DL (<100); MAGNESIUM LEVEL 2.6 MG/DL (1.8-2.4); NON-HDL-C 140 MG/DL; NT-PRO BNP 65 PG/ML (<125); POTASSIUM SERUM 4.2 MEQ/L (3.5-5.1); SODIUM LEVEL 137 MEQ/L (136-145); TRIGLYCERIDES LEVEL 178 MG/DL (<150)
== END ==
LOC: M LAB 10:52
PROVIDERS: ATTEND Physician Assistant
DX: I50.32 Chronic diastolic (congestive) heart failure (principal)

== ENCOUNTER → 2021-04-11 | Outpatient (CLI) | payer MEDICARE, MEDICAID ==
[2021-04-11 10:28] LABS: BLOOD UREA NITROGEN 10 MG/DL (7-18); CALCIUM LEVEL 9.6 MG/DL (8.5-10.1); CARBON DIOXIDE LEVEL 38 MEQ/L (21-32); CHLORIDE LEVEL 95 MEQ/L (98-107); CREATININE FOR GFR 0.84 MG/DL (0.55-1.30); GLOMERULAR FILTRATION RATE > 60.0 (>51); GLUCOSE, FASTING 96 MG/DL (70-100); POTASSIUM SERUM 4.1 MEQ/L (3.5-5.1); SODIUM LEVEL 135 MEQ/L (136-145)
== END ==
LOC: M LAB 09:06
PROVIDERS: ATTEND Physician Assistant
DX: I50.32 Chronic diastolic (congestive) heart failure (principal)

== ENCOUNTER → 2021-04-22 | Outpatient (CLI) | payer MEDICARE, MEDICAID ==
--- NOTE | 2021-04-22 11:48 | REP ---
INDICATION: NICOTINE DEPENDENCE COMPARISON: 02/04/2021, 06/12/2020 TECHNIQUE: Axial noncontrast images from the thoracic inlet to the upper abdomen using low-dose lung screening technique (LDCT). FINDINGS: Moderate to advanced bilateral emphysematous changes with minimal apical, perihilar and basilar scarring noted and essentially unchanged. No acute consolidation, suspicious nodule or mass lesion. No effusion. No pneumothorax. Tracheobronchial tree is patent. IMPRESSION: Lung-RADS category 2. Emphysematous changes and chronic scarring again noted. No suspicious nodule or mass lesion. Management recommendations include annual low-dose CT surveillance. <Electronically signed by Fahad Irwin > 04/22/21 1144
== END ==
LOC: M RAD 11:01
PROVIDERS: ATTEND Internal Medicine Pulmonary Disease
DX: Z12.2 Encounter for screening for malignant neoplasm of respiratory organs (principal); F17.210 Nicotine dependence, cigarettes, uncomplicated

== ENCOUNTER → 2021-05-24 | Outpatient (CLI) | payer MEDICARE, MEDICAID ==
[2021-05-24 11:21] LABS: BLOOD UREA NITROGEN 11 MG/DL (7-18); CARBON DIOXIDE LEVEL 40 MEQ/L (21-32); CHLORIDE LEVEL 94 MEQ/L (98-107); CREATININE FOR GFR 0.81 MG/DL (0.55-1.30); GLOMERULAR FILTRATION RATE > 60.0 (>51); GLUCOSE, FASTING 84 MG/DL (70-100); NT-PRO BNP 57 PG/ML (<125); POTASSIUM SERUM 3.8 MEQ/L (3.5-5.1); SODIUM LEVEL 134 MEQ/L (136-145)
== END ==
LOC: M LAB 09:33
PROVIDERS: ATTEND Physician Assistant
DX: I50.32 Chronic diastolic (congestive) heart failure (principal)

== ENCOUNTER → 2021-07-18 | Outpatient (REF) | payer MEDICARE, MEDICAID | LOC: M SFHCWAGY 13:31 | PROVIDERS: ATTEND Nurse Practitioner Women's Health | DX: Z12.4 Encounter for screening for malignant neoplasm of cervix (principal); N95.2 Postmenopausal atrophic vaginitis; R87.610 Atypical squamous cells of undetermined significance on cytologic smear of cervix (ASC-US); R87.810 Cervical high risk human papillomavirus (HPV) DNA test positive | CPT/HCPCS: 87624; G0123 ==

== ENCOUNTER → 2021-07-29 | Outpatient (REF) | payer OTHER, MEDICAID ==
[2021-07-29 11:18] LABS: BLOOD UREA NITROGEN 11 MG/DL (7-18); CALCIUM LEVEL 9.4 MG/DL (8.5-10.1); CARBON DIOXIDE LEVEL 37 MEQ/L (21-32); CHLORIDE LEVEL 96 MEQ/L (98-107); CREATININE FOR GFR 0.94 MG/DL (0.55-1.30); GLOMERULAR FILTRATION RATE > 60.0 (>51); GLUCOSE, FASTING 92 MG/DL (70-100); POTASSIUM SERUM 3.9 MEQ/L (3.5-5.1); SODIUM LEVEL 137 MEQ/L (136-145)
== END ==
LOC: M LAB REF 09:47
PROVIDERS: ATTEND Physician Assistant
DX: I27.81 Cor pulmonale (chronic) (principal)

== ENCOUNTER → 2021-08-27 | Outpatient (CLI) | payer MEDICARE, MEDICAID ==
--- NOTE | 2021-08-27 12:40 | REPMRS ---
Patient History The patient states she had a clinical breast exam in July 2021. No known family history of cancer. No Hormone Replacement Therapy Moderna vaccine 02/14/21 left arm. 03/14/21 left arm. Patient states no breast complaints today. Patient has signed MRS History Sheet. Digital Woman Screen Mammo: August 27, 2021 - Exam #: [id number] Bilateral CC and MLO view(s) were taken. Technologist: RT Karlee Prior study comparison: May 17, 2020, bilateral digital woman screen mammo performed at [facility]. February 15, 2019, bilateral digital woman screen mammo performed at [facility]. FINDINGS: The breast tissue is almost entirely fat. Screening. Digital screening (2D) mammography was performed bilaterally in the CC and MLO projections. Additionally, breast tomosynthesis (3D mammography) was performed bilaterally in the CC and MLO projections. Todays exam was compared to the prior exam/exams. By history, the patient has no complaints of a palpable breast abnormality or other significant breast complaints. The breasts are unchanged in size and shape. There are no kareem-soft tissue densities or spiculated masses. There is no internal architectural distortion. There are no suspicious kareem-calcific clusters. Skin thickening or nipple retraction is not present. IMPRESSION: BI-RADS Category 2- Benign Findings. There is no evidence of malignant alteration of the breasts. Followup examination recommended in one year. The Volpara volumetric breast density category is A, the breasts are almost entirely fatty. This mammogram was read with the assistance of [employer],an FDA approved computer aided detection system for mammography. The lifetime Tyrer-Cuzick score is 8 % Negative x-ray reports should not delay surgical consultation if a dominant or clinically suspicious mass is present. Not all breast cancers can be identified by mammography. Therefore, we recommend that you continue to perform regular breast self-examination and physical examination and then promptly contact your physician of any concerns or changes. Adenosis and dense breasts may obscure an underlying neoplasm. Assessment: BI-RADS/ACR category 2 mammogram. Benign Findings. Recommendation Routine screening mammogram of both breasts in 1 year. Electronically Signed By: Clement Martell DO 08/27/21 [id number]
== END ==
LOC: M WHC 11:06
PROVIDERS: ATTEND Nurse Practitioner Women's Health
DX: Z12.31 Encounter for screening mammogram for malignant neoplasm of breast (principal)

== ENCOUNTER → 2021-10-01 | Outpatient (REF) | payer MEDICARE, MEDICAID | LOC: M SFHCWAGY 13:08 | PROVIDERS: ATTEND Nurse Practitioner Women's Health | DX: N87.0 Mild cervical dysplasia (principal); R87.810 Cervical high risk human papillomavirus (HPV) DNA test positive ==

== ENCOUNTER → 2021-10-22 | Outpatient (CLI) | payer MEDICARE, MEDICAID ==
[2021-10-22 12:24] LABS: BLOOD UREA NITROGEN 8 MG/DL (7-18); CALCIUM LEVEL 9.3 MG/DL (8.5-10.1); CARBON DIOXIDE LEVEL 36 MEQ/L (21-32); CHLORIDE LEVEL 95 MEQ/L (98-107); CREATININE FOR GFR 0.96 MG/DL (0.55-1.30); GLOMERULAR FILTRATION RATE > 60.0 (>51); GLUCOSE, FASTING 99 MG/DL (70-100); POTASSIUM SERUM 4.2 MEQ/L (3.5-5.1); SODIUM LEVEL 136 MEQ/L (136-145)
== END ==
LOC: M LAB 10:10
PROVIDERS: ATTEND Physician Assistant
DX: I27.81 Cor pulmonale (chronic) (principal)

== ENCOUNTER → 2021-10-22 | Outpatient (CLI) | payer MEDICARE, MEDICAID ==
[2021-10-22 11:33] LABS: HEMATOCRIT 36.4 % (36.0-47.0); HEMOGLOBIN 11.8 g/dl (12.0-15.5); MEAN CORPUSCULAR HEMOGLOBIN 29.9 pg (27.0-33.0); MEAN CORPUSCULAR HGB CONC 32.4 g/dl (32.0-36.5); MEAN CORPUSCULAR VOLUME 92.4 fl (80.0-96.0); PLATELET COUNT, AUTOMATED 289 10^3/uL (150-450); RED BLOOD COUNT 3.94 10^6/uL (4.00-5.40); WHITE BLOOD COUNT 6.1 10^3/uL (4.0-10.0)
[2021-10-22 12:24] LABS: CREATININE, URINE 29.5 MG/DL; MALB URINE SIEMENS < 5.0 MG/L; MAU/CREAT RATIO 16.9 MCG/MG (0.0-30.0)
[2021-10-22 13:07] LABS: ALBUMIN 3.2 GM/DL (3.2-5.2); ALT/SGPT 14 U/L (12-78); BILIRUBIN,TOTAL 0.2 MG/DL (0.2-1.0); BLOOD UREA NITROGEN 9 MG/DL (7-18); CALCIUM LEVEL 9.6 MG/DL (8.5-10.1); CARBON DIOXIDE LEVEL 37 MEQ/L (21-32); CHLORIDE LEVEL 95 MEQ/L (98-107); CHOLESTEROL LEVEL 180 MG/DL (<200); CHOLESTEROL RISK RATIO 4.186 (<5); CREATININE FOR GFR 0.96 MG/DL (0.55-1.30); FREE T4 1.08 NG/DL (0.76-1.46); GLOMERULAR FILTRATION RATE > 60.0 (>51); GLUCOSE, FASTING 98 MG/DL (70-100); HDL CHOLESTEROL 43 MG/DL (>40); LDL CHOLESTEROL 94 MG/DL (<100); NON-HDL-C 137 MG/DL; POTASSIUM SERUM 4.1 MEQ/L (3.5-5.1); SODIUM LEVEL 137 MEQ/L (136-145); TOTAL PROTEIN 7.3 GM/DL (6.4-8.2); TRIGLYCERIDES LEVEL 216 MG/DL (<150)
[2021-10-22 14:05] LABS: TOTAL 25(OH) VITAMIN D 32.2 NG/ML (30.0-100.0)
== END ==
LOC: M LAB 10:06
PROVIDERS: ATTEND Physician Assistant
DX: I10 Essential (primary) hypertension (principal); I27.81 Cor pulmonale (chronic); Z79.899 Other long term (current) drug therapy

== ENCOUNTER → 2021-11-14 | Outpatient (REF) | payer MEDICARE, MEDICAID ==
[2021-11-14 13:25] LABS: BLOOD UREA NITROGEN 8 MG/DL (7-18); CALCIUM LEVEL 9.3 MG/DL (8.5-10.1); CARBON DIOXIDE LEVEL 33 MEQ/L (21-32); CHLORIDE LEVEL 95 MEQ/L (98-107); CREATININE FOR GFR 1.01 MG/DL (0.55-1.30); GLOMERULAR FILTRATION RATE > 60.0 (>51); GLUCOSE, FASTING 114 MG/DL (70-100); POTASSIUM SERUM 3.5 MEQ/L (3.5-5.1); SODIUM LEVEL 136 MEQ/L (136-145)
== END ==
LOC: M LABDRWAD 12:46
PROVIDERS: ATTEND Physician Assistant
DX: I27.81 Cor pulmonale (chronic) (principal); F17.218 Nicotine dependence, cigarettes, with other nicotine-induced disorders

== ENCOUNTER → 2022-01-16 | Outpatient (REF) | payer MEDICARE ==
[2022-01-16 18:34] LABS: BASO % 0.3 % (0.0-1.0); EOS # 0.2 10^3/uL (0.0-0.5); EOS % 3.1 % (0.0-3.0); HEMATOCRIT 39.1 % (36.0-47.0); HEMOGLOBIN 12.4 g/dl (12.0-15.5); LYMPH # 1.7 10^3/uL (1.5-5.0); LYMPH % 22.9 % (24.0-44.0); MEAN CORPUSCULAR HEMOGLOBIN 29.4 pg (27.0-33.0); MEAN CORPUSCULAR HGB CONC 31.7 g/dl (32.0-36.5); MEAN CORPUSCULAR VOLUME 92.7 fl (80.0-96.0); MONO # 0.4 10^3/uL (0.0-0.8); MONO % 4.7 % (2.0-8.0); NEUTROPHILS # 5.2 10^3/uL (1.5-8.5); NEUTROPHILS % 68.7 % (36.0-66.0); PLATELET COUNT, AUTOMATED 291 10^3/uL (150-450); RED BLOOD COUNT 4.22 10^6/uL (4.00-5.40); WHITE BLOOD COUNT 7.5 10^3/uL (4.0-10.0)
[2022-01-16 18:45] LABS: ALBUMIN 3.5 GM/DL (3.2-5.2); ALT/SGPT 15 U/L (12-78); AMYLASE 36 U/L (25-115); BILIRUBIN,TOTAL 0.1 MG/DL (0.2-1.0); BLOOD UREA NITROGEN 8 MG/DL (7-18); CALCIUM LEVEL 9.8 MG/DL (8.5-10.1); CARBON DIOXIDE LEVEL 37 MEQ/L (21-32); CHLORIDE LEVEL 95 MEQ/L (98-107); CREATININE FOR GFR 0.97 MG/DL (0.55-1.30); GLOMERULAR FILTRATION RATE > 60.0 (>51); GLUCOSE, FASTING 107 MG/DL (70-100); LIPASE 152 U/L (73-393); SODIUM LEVEL 137 MEQ/L (136-145); TOTAL PROTEIN 7.9 GM/DL (6.4-8.2)
== END ==
LOC: M SFHCADAM 15:32
PROVIDERS: ATTEND Physician Assistant
DX: R19.7 Diarrhea, unspecified (principal); J43.9 Emphysema, unspecified; K21.9 Gastro-esophageal reflux disease without esophagitis; R10.30 Lower abdominal pain, unspecified

== ENCOUNTER → 2022-01-20 | Outpatient (CLI) | payer MEDICARE ==
[~2022-01-20] MED LIST changes: +GASTROGRAFIN SOLUTION 30ML (Q9963) As Ordered ONE; +ISOVUE-370 76% 100ML VIAL As Ordered ONE
== END ==
LOC: M RAD 10:51
PROVIDERS: ATTEND Physician Assistant
DX: K57.30 Diverticulosis of large intestine without perforation or abscess without bleeding (principal)
CPT/HCPCS: 74178; Q9963; Q9967

== ENCOUNTER 2022-03-07 16:39 | Emergency (ER) | payer MEDICARE, MEDICAID ==
[~2022-03-07] VITALS: Ht 157.5 cm; Wt 88.9 kg
[~2022-03-07 16:39] MED LIST changes: -GASTROGRAFIN SOLUTION 30ML (Q9963) As Ordered ONE; -ISOVUE-370 76% 100ML VIAL As Ordered ONE
[2022-03-07 16:40] VITALS: BP 134/70
== END 2022-03-07 18:06 | disposition left against medical advice (07) ==
LOC: M ED 16:39
DX: Z53.21 Procedure and treatment not carried out due to patient leaving prior to being seen by health care provider (principal)

== ENCOUNTER 2022-03-20 09:31 | Emergency (ER) | payer MEDICARE, MEDICAID ==
[~2022-03-20] VITALS: Ht 157.5 cm; Wt 88.6 kg
[2022-03-20 10:22] LABS: BASO % 0.3 % (0.0-1.0); EOS # 0.2 10^3/uL (0.0-0.5); EOS % 4.1 % (0.0-3.0); HEMATOCRIT 37.1 % (36.0-47.0); HEMOGLOBIN 11.9 g/dl (12.0-15.5); LYMPH # 1.2 10^3/uL (1.5-5.0); LYMPH % 20.2 % (24.0-44.0); MEAN CORPUSCULAR HEMOGLOBIN 29.8 pg (27.0-33.0); MEAN CORPUSCULAR HGB CONC 32.1 g/dl (32.0-36.5); MEAN CORPUSCULAR VOLUME 92.8 fl (80.0-96.0); MONO # 0.3 10^3/uL (0.0-0.8); MONO % 4.8 % (2.0-8.0); NEUTROPHILS # 4.1 10^3/uL (1.5-8.5); NEUTROPHILS % 70.4 % (36.0-66.0); PLATELET COUNT, AUTOMATED 249 10^3/uL (150-450); WHITE BLOOD COUNT 5.9 10^3/uL (4.0-10.0)
[2022-03-20 10:30] LABS: VENOUS HCO3 33.1 MEQ/L (23.0-27.0); VENOUS O2 SATURATION 98.4 % (60.0-80.0); VENOUS PARTIAL PRESSURE CO2 48.1 mmHg (38.0-50.0); VENOUS PARTIAL PRESSURE O2 106.7 mmHg (30.0-50.0); VENOUS PH 7.455 UNITS (7.330-7.430); VENOUS STANDARD HCO3 31.8 MEQ/L; VENOUS TOTAL CO2 34.5 MEQ/L (24.0-28.0)
[2022-03-20 10:56] LABS: CK-MB VALUE MASS < 1.0 NG/ML (<3.6); CPK CREATINE PHOSPHOKINASE 76 U/L (26-192); MB/CK RELATIVE INDEX 1.32 (< OR =4)
[2022-03-20 11:02] LABS: ALBUMIN 3.3 GM/DL (3.2-5.2); ALT/SGPT 17 U/L (12-78); BILIRUBIN,DIRECT < 0.1 MG/DL (0.0-0.2); BILIRUBIN,TOTAL 0.2 MG/DL (0.2-1.0); BLOOD UREA NITROGEN 8 MG/DL (7-18); CALCIUM LEVEL 9.4 MG/DL (8.5-10.1); CARBON DIOXIDE LEVEL 39 MEQ/L (21-32); CHLORIDE LEVEL 94 MEQ/L (98-107); CREATININE FOR GFR 1.07 MG/DL (0.55-1.30); GLOMERULAR FILTRATION RATE 56.5 (>51); GLUCOSE, FASTING 94 MG/DL (70-100); NT-PRO BNP 51 PG/ML (<125); SODIUM LEVEL 134 MEQ/L (136-145); TOTAL PROTEIN 7.4 GM/DL (6.4-8.2)
[2022-03-20] MEDS ORDERED: predniSONE 20 MG TAB PO ONE (11:40)
[2022-03-20] MEDS ORDERED: COMBIVENT RESPIMAT 100-20MCG INHALER 4GM INH SCH (11:40)
[2022-03-20] MEDS ORDERED: ISOVUE-370 76% 100ML VIAL As Ordered ONE (11:43)
[2022-03-20] MEDS ORDERED: IPRATROPIUM 0.5MG/ALBUTEROL 2.5MG INH SOL UD 3ML (DUONEB) NEB ONE (14:05)
[2022-03-20 15:56] VITALS: O2SAT 97
[2022-03-20] MEDS ORDERED: PRED20TA PO (16:06)
[2022-03-20 16:40] VITALS: BP 124/70
== END 2022-03-20 16:42 | disposition home or self-care (01) ==
LOC: M ED 09:31 → EDBD 09:31 → M ED 16:42
DX: J44.9 Chronic obstructive pulmonary disease, unspecified (principal); F17.200 Nicotine dependence, unspecified, uncomplicated; I10 Essential (primary) hypertension; Z88.8 Allergy status to other drugs, medicaments and biological substances
CPT/HCPCS: 36415; 71045; 71275; 80048; 80076; 82550; 82553; 82803; 83880; 84443; 84484; 85025; 87798; 93005; 93041; 94640; 94760; 99285; J7512; Q9967

== ENCOUNTER → 2022-04-04 | Outpatient (CLI) | payer MEDICARE, MEDICAID ==
[2022-04-04 10:11] LABS: ALBUMIN 2.9 GM/DL (3.2-5.2); ALT/SGPT 12 U/L (12-78); BILIRUBIN,TOTAL 0.2 MG/DL (0.2-1.0); BLOOD UREA NITROGEN 7 MG/DL (7-18); CALCIUM LEVEL 9.6 MG/DL (8.5-10.1); CARBON DIOXIDE LEVEL 33 MEQ/L (21-32); CHLORIDE LEVEL 99 MEQ/L (98-107); CHOLESTEROL LEVEL 178 MG/DL (<200); CHOLESTEROL RISK RATIO 4.238 (<5); CREATININE FOR GFR 0.92 MG/DL (0.55-1.30); GLOMERULAR FILTRATION RATE > 60.0 (>51); GLUCOSE, FASTING 122 MG/DL (70-100); HDL CHOLESTEROL 42 MG/DL (>40); LDL CHOLESTEROL 108 MG/DL (<100); NON-HDL-C 136 MG/DL; POTASSIUM SERUM 4.3 MEQ/L (3.5-5.1); SODIUM LEVEL 137 MEQ/L (136-145); TOTAL PROTEIN 6.7 GM/DL (6.4-8.2); TRIGLYCERIDES LEVEL 141 MG/DL (<150)
== END ==
LOC: M PLALAB 07:43
PROVIDERS: ATTEND Physician Assistant
DX: I50.32 Chronic diastolic (congestive) heart failure (principal); E78.2 Mixed hyperlipidemia

== ENCOUNTER → 2022-05-02 | Outpatient (CLI) | payer MEDICARE, MEDICAID ==
[2022-05-02 17:58] LABS: HEMOGLOBIN A1c 5.6 %
== END ==
LOC: M LAB 10:35
PROVIDERS: ATTEND Student in an Organized Health Care Education/Training Program
DX: R74.8 Abnormal levels of other serum enzymes (principal); E55.9 Vitamin D deficiency, unspecified; R73.9 Hyperglycemia, unspecified

== ENCOUNTER 2022-07-29 18:27 | Emergency (ER) | payer MEDICARE, MEDICAID ==
[~2022-07-29] VITALS: Ht 157.5 cm; Wt 81.8 kg
[~2022-07-29 18:27] MED LIST changes: +NYST-13 TOP; -NYST10CR TOP; +SIMV-253 PO; -ZOCO20TA PO
[2022-07-29 19:14] LABS: BASO % 0.3 % (0.0-1.0); EOS # 0.3 10^3/uL (0.0-0.5); EOS % 3.7 % (0.0-3.0); HEMATOCRIT 37.5 % (36.0-47.0); HEMOGLOBIN 12.3 g/dl (12.0-15.5); LYMPH # 1.4 10^3/uL (1.5-5.0); LYMPH % 20.2 % (24.0-44.0); MEAN CORPUSCULAR HEMOGLOBIN 29.9 pg (27.0-33.0); MEAN CORPUSCULAR HGB CONC 32.8 g/dl (32.0-36.5); MONO # 0.4 10^3/uL (0.0-0.8); MONO % 5.5 % (2.0-8.0); NEUTROPHILS # 4.7 10^3/uL (1.5-8.5); PLATELET COUNT, AUTOMATED 242 10^3/uL (150-450); RED BLOOD COUNT 4.12 10^6/uL (4.00-5.40); WHITE BLOOD COUNT 6.7 10^3/uL (4.0-10.0)
[2022-07-29] MEDS ORDERED: NS 1,000 ML IV SCH (19:40)
[2022-07-29] MEDS ORDERED: ONDANSETRON 4MG 2ML VIAL IV ONE (19:40)
[2022-07-29] MEDS ORDERED: FAMOTIDINE 20MG/2ML VIAL IVP ONE (19:40)
[2022-07-29 20:10] LABS: ALBUMIN 3.6 GM/DL (3.2-5.2); BILIRUBIN,DIRECT 0.2 MG/DL (0.0-0.2); BILIRUBIN,TOTAL 0.4 MG/DL (0.2-1.0); CALCIUM LEVEL 9.5 MG/DL (8.5-10.1); CREATININE FOR GFR 1.53 MG/DL (0.55-1.30); GLOMERULAR FILTRATION RATE 37.4 (>51); POTASSIUM SERUM 3.4 MEQ/L (3.5-5.1); TOTAL PROTEIN 7.8 GM/DL (6.4-8.2)
[2022-07-29 21:03] LABS: INR 1.08; PROTHROMBIN TIME 14.4 SECONDS (12.7-14.5)
[2022-07-29 22:34] VITALS: BP 162/75
[2022-07-29 22:52] LABS: SQUAMOUS EPITHELIAL CELL URINE LARGE AMOUNT /hpf (SMALL AMT)
[2022-07-29 22:53] LABS: BACTERIA, URINE SMALL AMOUNT; HYALINE CAST, URINE NONE SEEN /lpf (0-1)
[2022-07-29 22:54] LABS: MUCUS, URINE SMALL AMOUNT (NEGATIVE)
[2022-07-29] MEDS ORDERED: PRED10TA2 PO (23:14)
[2022-07-29] MEDS ORDERED: CEFD300C41 PO (23:14)
[2022-07-29] MEDS ORDERED: FLAG375C PO (23:14)
[2022-07-29] MEDS ORDERED: CEFDINIR 300 MG CAP (OMNICEF) PO ONE (23:20)
[2022-07-29] MEDS ORDERED: metroNIDAZOLE (FLAGYL) 500MG TABLET PO ONE (23:20)
== END 2022-07-29 23:51 | disposition home or self-care (01) ==
LOC: M ED 18:27 → EDBD 18:27 → M ED 23:51
DX: K52.9 Noninfective gastroenteritis and colitis, unspecified (principal); N39.0 Urinary tract infection, site not specified; I10 Essential (primary) hypertension; J44.9 Chronic obstructive pulmonary disease, unspecified; Z88.1 Allergy status to other antibiotic agents; Z88.8 Allergy status to other drugs, medicaments and biological substances; Z79.899 Other long term (current) drug therapy; F17.210 Nicotine dependence, cigarettes, uncomplicated
CPT/HCPCS: 74176; 80048; 80076; 81000; 81015; 82150; 83690; 85025; 85610; 86850; 86900; 86901; 87086; 96374; 96375; 99285; J2405

== ENCOUNTER → 2022-08-07 | Outpatient (REF) | payer MEDICARE ==
[~2022-08-07] MED LIST changes: +CEFD300C41 PO; +FLAG375C PO
[2022-08-07 17:28] LABS: ALBUMIN 3.6 GM/DL (3.2-5.2); BILIRUBIN,TOTAL 0.2 MG/DL (0.2-1.0); CALCIUM LEVEL 9.5 MG/DL (8.5-10.1); CREATININE FOR GFR 1.62 MG/DL (0.55-1.30); FREE T4 1.27 NG/DL (0.76-1.46); POTASSIUM SERUM 3.1 MEQ/L (3.5-5.1); THYROID STIMULATING HORMONE 3.1 uIU/ML (0.358-3.740); TOTAL PROTEIN 7.1 GM/DL (6.4-8.2)
== END ==
LOC: M SFHCADAM 11:58
PROVIDERS: ATTEND Physician Assistant
DX: R20.2 Paresthesia of skin (principal); R19.7 Diarrhea, unspecified; E87.6 Hypokalemia; I95.9 Hypotension, unspecified

== ENCOUNTER → 2022-08-09 | Outpatient (REF) | payer MEDICARE | LOC: M LAB REF 09:35 | PROVIDERS: ATTEND Physician Assistant | DX: R19.7 Diarrhea, unspecified (principal); R10.829 Rebound abdominal tenderness, unspecified site ==

== ENCOUNTER → 2022-08-21 | Outpatient (REF) | payer MEDICARE ==
[2022-08-21 13:25] LABS: CALCIUM LEVEL 9.2 MG/DL (8.5-10.1); CREATININE FOR GFR 1.2 MG/DL (0.55-1.30); GLOMERULAR FILTRATION RATE 49.3 (>51); MAGNESIUM LEVEL 2.2 MG/DL (1.8-2.4); POTASSIUM SERUM 4.4 MEQ/L (3.5-5.1)
== END ==
LOC: M SFHCADAM 09:27
PROVIDERS: ATTEND Physician Assistant
DX: I10 Essential (primary) hypertension (principal); E87.6 Hypokalemia

== ENCOUNTER → 2022-09-18 | Outpatient (CLI) | payer MEDICARE ==
[~2022-09-18] MED LIST changes: +ATOR40TA75 PO; +ONDA-83 PO; +POTA-151 PO; +TORS20TA2 PO; +VALS1TAB66 PO
== END ==
LOC: M LABSMTC 09:36
PROVIDERS: ATTEND Anesthesiology
DX: Z01.818 Encounter for other preprocedural examination (principal); Z11.52 Encounter for screening for COVID-19

== ENCOUNTER 2022-09-23 08:32 | Day surgery (SDC) | payer MEDICARE ==
[~2022-09-23] VITALS: Ht 157.5 cm; Wt 69.4 kg
[~2022-09-23 08:32] MED LIST changes: +NS 1,000 ML IV ONE
[2022-09-23 10:30] VITALS: BP 123/61
== END 2022-09-23 10:46 | disposition home or self-care (01) ==
LOC: M OPP 08:32
PROVIDERS: ATTEND Surgery
DX: K44.9 Diaphragmatic hernia without obstruction or gangrene (principal); K22.2 Esophageal obstruction; R10.84 Generalized abdominal pain; Z79.02 Long term (current) use of antithrombotics/antiplatelets; Z79.51 Long term (current) use of inhaled steroids; Z79.52 Long term (current) use of systemic steroids; Z79.899 Other long term (current) drug therapy; Z88.1 Allergy status to other antibiotic agents; Z88.8 Allergy status to other drugs, medicaments and biological substances; F32.9 Major depressive disorder, single episode, unspecified; F41.9 Anxiety disorder, unspecified; J44.9 Chronic obstructive pulmonary disease, unspecified; I50.9 Heart failure, unspecified; I11.0 Hypertensive heart disease with heart failure; E78.00 Pure hypercholesterolemia, unspecified; I34.9 Nonrheumatic mitral valve disorder, unspecified; F17.200 Nicotine dependence, unspecified, uncomplicated

== ENCOUNTER → 2022-12-05 | Outpatient (CLI) | payer MEDICARE, MEDICAID ==
[~2022-12-05] MED LIST changes: +DIPH-435 PO; -DIPH25CA32 PO; -DOXY-350 PO; +DOXY-444 PO; -NS 1,000 ML IV ONE; +NYST-38 SS; -NYST50SS SS
[2022-12-05 14:02] LABS: MAGNESIUM LEVEL 2.1 MG/DL (1.8-2.4)
[2022-12-05 14:04] LABS: BLOOD UREA NITROGEN 6 MG/DL (9-23); CALCIUM LEVEL 9.3 MG/DL (8.5-10.1); CARBON DIOXIDE LEVEL 38 MMOL/L (20-31); CHLORIDE LEVEL 94 MMOL/L (98-107); GLOMERULAR FILTRATION RATE > 60.0 (>51); GLUCOSE, FASTING 81 MG/DL (60-100); SODIUM LEVEL 136 MMOL/L (136-145)
== END ==
LOC: M PLALAB 10:10
PROVIDERS: ATTEND Physician Assistant
DX: I27.81 Cor pulmonale (chronic) (principal)

== ENCOUNTER → 2023-02-25 | Outpatient (CLI) | payer MEDICARE, MEDICAID ==
[~2023-02-25] MED LIST changes: +MONT-5 PO; -OXYC-403 PO; +OXYC-673 PO; -SING10TA32 PO
== END ==
LOC: M RAD 08:00
PROVIDERS: ATTEND Internal Medicine Gastroenterology
DX: R11.2 Nausea with vomiting, unspecified (principal); Z90.49 Acquired absence of other specified parts of digestive tract

== ENCOUNTER → 2023-02-25 | Outpatient (REF) | payer MEDICARE, MEDICAID ==
[~2023-02-25] MED LIST changes: +CEFD300C41; +PRED20TA
[2023-02-25 14:40] LABS: ALBUMIN 3.4 G/DL (3.2-5.2); BLOOD UREA NITROGEN 9 MG/DL (9-23); CALCIUM LEVEL 9.4 MG/DL (8.5-10.1); CARBON DIOXIDE LEVEL 38 MMOL/L (20-31); CHLORIDE LEVEL 96 MMOL/L (98-107); CREATININE FOR GFR 0.81 MG/DL (0.55-1.30); GLOMERULAR FILTRATION RATE > 60.0 (>51); GLUCOSE, FASTING 84 MG/DL (60-100); PHOSPHORUS LEVEL 3.1 MG/DL (2.5-4.9); POTASSIUM SERUM 4.3 MMOL/L (3.5-5.1); SODIUM LEVEL 138 MMOL/L (136-145)
== END ==
LOC: M LABDRWAD 12:51
PROVIDERS: ATTEND Physician Assistant
DX: I50.32 Chronic diastolic (congestive) heart failure (principal); I27.81 Cor pulmonale (chronic)

== ENCOUNTER → 2023-02-25 | Day surgery (SDC) | payer MEDICARE, MEDICAID ==
[~2023-02-25] MED LIST changes: -CEFD300C41; -PRED20TA
== END | disposition home or self-care (01) ==
LOC: M OPP 07:32
PROVIDERS: ATTEND Surgery
DX: Z86.010 Personal history of colon polyps (principal)

== ENCOUNTER → 2023-03-11 | Outpatient (CLI) | payer MEDICARE, MEDICAID ==
[2023-03-11 11:10] LABS: ALBUMIN 3.2 G/DL (3.2-5.2); BLOOD UREA NITROGEN 7 MG/DL (9-23); CARBON DIOXIDE LEVEL 37 MMOL/L (20-31); CHLORIDE LEVEL 98 MMOL/L (98-107); CREATININE FOR GFR 0.92 MG/DL (0.55-1.30); GLOMERULAR FILTRATION RATE > 60.0 (>51); GLUCOSE, FASTING 97 MG/DL (60-100); PHOSPHORUS LEVEL 2.6 MG/DL (2.5-4.9); POTASSIUM SERUM 3.7 MMOL/L (3.5-5.1); SODIUM LEVEL 139 MMOL/L (136-145)
== END ==
LOC: M PLALAB 08:35
PROVIDERS: ATTEND Physician Assistant
DX: I27.81 Cor pulmonale (chronic) (principal)

== ENCOUNTER → 2023-03-12 | Outpatient (CLI) | payer MEDICARE, MEDICAID ==
[~2023-03-12] MED LIST changes: +CEFD300C41; +PRED20TA
== END ==
LOC: M ADAMS 11:37
PROVIDERS: ATTEND Physician Assistant
DX: J44.1 Chronic obstructive pulmonary disease with (acute) exacerbation (principal)

== ENCOUNTER → 2023-04-10 | Outpatient (CLI) | payer MEDICARE, MEDICAID ==
[~2023-04-10] MED LIST changes: +ACET250T2 PO; +BUDE10.2 INH; +DOCU100C16 PO; +MONT10TA97 PO; +PANT40TA29 PO; +ROPI1TAB3 PO; +SYMB16INH INH
== END ==
LOC: M PLAIMG 10:21
PROVIDERS: ATTEND Physician Assistant
DX: R05.1 Acute cough (principal)

== ENCOUNTER → 2023-05-14 | Outpatient (REF) | payer MEDICARE | LOC: M SFHCADAM 15:54 | PROVIDERS: ATTEND Physician Assistant | DX: J44.9 Chronic obstructive pulmonary disease, unspecified (principal); K21.9 Gastro-esophageal reflux disease without esophagitis; I10 Essential (primary) hypertension; F17.218 Nicotine dependence, cigarettes, with other nicotine-induced disorders; I50.32 Chronic diastolic (congestive) heart failure; E78.2 Mixed hyperlipidemia; G25.81 Restless legs syndrome ==

== ENCOUNTER → 2023-05-19 | Outpatient (CLI) | payer MEDICARE, MEDICAID ==
[2023-05-19 09:28] LABS: BASO % 0.3 % (0.0-1.0); EOS # 0.2 10^3/uL (0.0-0.5); EOS % 2.6 % (0.0-3.0); HEMATOCRIT 37.5 % (36.0-47.0); HEMOGLOBIN 11.9 g/dl (12.0-15.5); LYMPH # 1.4 10^3/uL (1.5-5.0); LYMPH % 20.9 % (24.0-44.0); MEAN CORPUSCULAR HEMOGLOBIN 30.1 pg (27.0-33.0); MEAN CORPUSCULAR HGB CONC 31.7 g/dl (32.0-36.5); MEAN CORPUSCULAR VOLUME 94.9 fl (80.0-96.0); MONO # 0.4 10^3/uL (0.0-0.8); MONO % 5.7 % (2.0-8.0); NEUTROPHILS # 4.8 10^3/uL (1.5-8.5); NEUTROPHILS % 70.2 % (36.0-66.0); PLATELET COUNT, AUTOMATED 212 10^3/uL (150-450); RED BLOOD COUNT 3.95 10^6/uL (4.00-5.40); WHITE BLOOD COUNT 6.8 10^3/uL (4.0-10.0)
[2023-05-19 09:55] LABS: CHOLESTEROL RISK RATIO 3.97 (<5); HDL CHOLESTEROL 46.5 MG/DL (>40); LDL CHOLESTEROL 114.1 MG/DL (<100); NON-HDL-C 138.5 MG/DL
[2023-05-19 10:00] LABS: FREE T4 1.07 NG/DL (0.89-1.76); THYROID STIMULATING HORMONE 2.524 uIU/ML (0.55-4.78)
[2023-05-19 10:11] LABS: FOLATE 10.4 NG/ML (>5.4)
[2023-05-20 11:37] LABS: CREATININE, URINE 90.6 MG/DL; MAU/CREAT RATIO 3.3 MCG/MG (0.0-30.0)
== END ==
LOC: M LAB 08:44
PROVIDERS: ATTEND Physician Assistant
DX: J44.9 Chronic obstructive pulmonary disease, unspecified (principal); K21.9 Gastro-esophageal reflux disease without esophagitis; G25.81 Restless legs syndrome; F17.218 Nicotine dependence, cigarettes, with other nicotine-induced disorders; I11.0 Hypertensive heart disease with heart failure

== ENCOUNTER → 2023-05-19 | Outpatient (CLI) | payer MEDICARE, MEDICAID | LOC: M RAD 08:39 | PROVIDERS: ATTEND Internal Medicine Pulmonary Disease | DX: Z12.2 Encounter for screening for malignant neoplasm of respiratory organs (principal); F17.218 Nicotine dependence, cigarettes, with other nicotine-induced disorders; G25.81 Restless legs syndrome; J44.9 Chronic obstructive pulmonary disease, unspecified; K21.9 Gastro-esophageal reflux disease without esophagitis; I11.0 Hypertensive heart disease with heart failure; Z79.899 Other long term (current) drug therapy ==

== ENCOUNTER → 2023-06-04 | Outpatient (REF) | payer MEDICARE, MEDICAID ==
[~2023-06-04] MED LIST changes: -ROPI0.5T3 PO; +ROPI0.5T33 PO; -ROPI1TAB3 PO; +ROPI1TAB73 PO
== END ==
LOC: M SFHCWAGY 13:04
PROVIDERS: ATTEND Nurse Practitioner Family
DX: Z12.4 Encounter for screening for malignant neoplasm of cervix (principal); N95.2 Postmenopausal atrophic vaginitis
CPT/HCPCS: 87624; G0123

== ENCOUNTER → 2023-06-04 | Outpatient (CLI) | payer MEDICARE, MEDICAID | LOC: M WHC 09:00 | PROVIDERS: ATTEND Nurse Practitioner Family | DX: Z12.31 Encounter for screening mammogram for malignant neoplasm of breast (principal) ==

== ENCOUNTER → 2023-07-08 | Outpatient (CLI) | payer MEDICARE, MEDICAID ==
[2023-07-08 11:38] LABS: BLOOD UREA NITROGEN < 5 MG/DL (9-23); CARBON DIOXIDE LEVEL 34 MMOL/L (20-31); CHLORIDE LEVEL 100 MMOL/L (98-107); CREATININE FOR GFR 0.75 MG/DL (0.55-1.30); GLOMERULAR FILTRATION RATE > 60.0 (>51); GLUCOSE, FASTING 91 MG/DL (60-100); SODIUM LEVEL 140 MMOL/L (136-145)
== END ==
LOC: M PLALAB 08:35
PROVIDERS: ATTEND Physician Assistant
DX: I27.81 Cor pulmonale (chronic) (principal)

== ENCOUNTER 2023-08-06 10:30 | Day surgery (SDC) | payer MEDICARE, MEDICAID ==
[~2023-08-06] VITALS: Ht 154.9 cm; Wt 69.4 kg
[~2023-08-06 10:30] MED LIST changes: +LIDOCAINE 2% 100MG/5ML SDV (FOR ANES.) As Ordered ONE; +NS 1,000 ML IV ONE; +propofoL 200 MG/20 ML VIAL As Ordered ONE
[2023-08-06] MEDS ORDERED: fentaNYL 100 MCG/2 ML INJECTION As Ordered ONE (11:12)
[2023-08-06 12:43] VITALS: BP 135/76; O2SAT 99
== END 2023-08-06 12:45 | disposition home or self-care (01) ==
LOC: M OPP 10:30
PROVIDERS: ATTEND Internal Medicine Gastroenterology
DX: K29.70 Gastritis, unspecified, without bleeding (principal); K22.2 Esophageal obstruction; K44.9 Diaphragmatic hernia without obstruction or gangrene; R13.10 Dysphagia, unspecified; F17.200 Nicotine dependence, unspecified, uncomplicated; Z79.02 Long term (current) use of antithrombotics/antiplatelets; Z79.51 Long term (current) use of inhaled steroids; Z79.52 Long term (current) use of systemic steroids; Z79.899 Other long term (current) drug therapy; Z88.5 Allergy status to narcotic agent; Z88.6 Allergy status to analgesic agent; Z88.8 Allergy status to other drugs, medicaments and biological substances
CPT/HCPCS: 43239; 43249; 88305; J3010

== ENCOUNTER → 2023-08-13 | Outpatient (CLI) | payer MEDICARE, MEDICAID ==
[~2023-08-13] MED LIST changes: -LIDOCAINE 2% 100MG/5ML SDV (FOR ANES.) As Ordered ONE; -NS 1,000 ML IV ONE; -propofoL 200 MG/20 ML VIAL As Ordered ONE
== END ==
LOC: M RAD 10:14
PROVIDERS: ATTEND Physician Assistant
DX: R91.8 Other nonspecific abnormal finding of lung field (principal)

== ENCOUNTER → 2023-09-24 | Outpatient (CLI) | payer MEDICARE, MEDICAID ==
[~2023-09-24] MED LIST changes: -CEFD300C41; -CEFD300C41 PO; +CEFD300C42; +CEFD300C42 PO
[2023-09-24 16:31] LABS: CALCIUM LEVEL 9.1 MG/DL (8.5-10.1); CREATININE FOR GFR 2.24 MG/DL (0.55-1.30); GLOMERULAR FILTRATION RATE 23.9 (>51); POTASSIUM SERUM 3.2 MMOL/L (3.5-5.1)
== END ==
LOC: M PLALAB 11:43
PROVIDERS: ATTEND Physician Assistant
DX: E87.6 Hypokalemia (principal)

== ENCOUNTER → 2023-09-24 | Outpatient (CLI) | payer MEDICARE, MEDICAID ==
[2023-09-24 16:27] LABS: IMMUNOGLOBULIN M 25.7 MG/DL (50-300)
== END ==
LOC: M PLALAB 11:47
PROVIDERS: ATTEND Specialist
DX: D47.2 Monoclonal gammopathy (principal)

== ENCOUNTER → 2023-10-13 | Outpatient (CLI) | payer MEDICARE, MEDICAID | LOC: M RAD 11:53 | PROVIDERS: ATTEND Physician Assistant | DX: N17.9 Acute kidney failure, unspecified (principal) ==

== ENCOUNTER → 2023-11-06 | Outpatient (CLI) | payer MEDICARE, MEDICAID ==
[~2023-11-06] MED LIST changes: +CEFD1CAP9; +CEFD1CAP9 PO; -CEFD300C42; -CEFD300C42 PO
[2023-11-06 12:33] LABS: ALBUMIN 3.4 G/DL (3.2-5.2); BILIRUBIN,TOTAL 0.2 MG/DL (0.3-1.2); CALCIUM LEVEL 9.1 MG/DL (8.5-10.1); CHOLESTEROL RISK RATIO 4.6 (<5); CREATININE FOR GFR 2.29 MG/DL (0.55-1.30); GLOMERULAR FILTRATION RATE 23.3 (>51); HDL CHOLESTEROL 38.4 MG/DL (>40); LDL CHOLESTEROL 104.4 MG/DL (<100); NON-HDL-C 138.6 MG/DL; POTASSIUM SERUM 3.5 MMOL/L (3.5-5.1); TOTAL PROTEIN 6.5 G/DL (5.7-8.2)
== END ==
LOC: M PLALAB 07:25
PROVIDERS: ATTEND Physician Assistant
DX: I27.81 Cor pulmonale (chronic) (principal); I50.32 Chronic diastolic (congestive) heart failure; E78.2 Mixed hyperlipidemia

== ENCOUNTER 2023-11-09 09:26 | Emergency (ER) | payer MEDICARE, MEDICAID ==
[2023-11-09 10:54] LABS: BASO % 0.6 % (0.0-1.0); EOS # 0.1 10^3/uL (0.0-0.5); EOS % 2.6 % (0.0-3.0); HEMATOCRIT 32.8 % (36.0-47.0); HEMOGLOBIN 10.8 g/dl (12.0-15.5); LYMPH # 1.1 10^3/uL (1.5-5.0); LYMPH % 22.5 % (24.0-44.0); MEAN CORPUSCULAR HEMOGLOBIN 32.4 pg (27.0-33.0); MEAN CORPUSCULAR HGB CONC 32.9 g/dl (32.0-36.5); MEAN CORPUSCULAR VOLUME 98.5 fl (80.0-96.0); MONO # 0.3 10^3/uL (0.0-0.8); MONO % 5.1 % (2.0-8.0); NEUTROPHILS # 3.5 10^3/uL (1.5-8.5); PLATELET COUNT, AUTOMATED 210 10^3/uL (150-450); RED BLOOD COUNT 3.33 10^6/uL (4.00-5.40); WHITE BLOOD COUNT 5.1 10^3/uL (4.0-10.0)
[2023-11-09 11:01] LABS: INR 1.09; PROTHROMBIN TIME 13.8 SECONDS (12.5-14.5)
[2023-11-09 11:02] LABS: PARTIAL THROMBOPLASTIN TIME 27.5 SECONDS (24.8-34.2)
[2023-11-09 11:08] LABS: CK-MB VALUE MASS < 1.0 NG/ML (<3.6)
[2023-11-09 11:09] LABS: LIPASE 42 U/L (12-53)
[2023-11-09 11:11] LABS: ALBUMIN 3.5 G/DL (3.2-5.2); ALKALINE PHOSPHATASE 147 U/L (46-116); ALT/SGPT < 9 U/L (7.0-40); AST/SGOT 18 U/L (<34); BILIRUBIN,DIRECT < 0.1 MG/DL (<0.4); BILIRUBIN,TOTAL 0.2 MG/DL (0.3-1.2); BLOOD UREA NITROGEN 16 MG/DL (9-23); CALCIUM LEVEL 9.5 MG/DL (8.5-10.1); CARBON DIOXIDE LEVEL 30 MMOL/L (20-31); CHLORIDE LEVEL 100 MMOL/L (98-107); CREATININE FOR GFR 1.99 MG/DL (0.55-1.30); GLOMERULAR FILTRATION RATE 27.4 (>51); GLUCOSE, FASTING 109 MG/DL (60-100); POTASSIUM SERUM 3.4 MMOL/L (3.5-5.1); RSV AMPLIFICATION NEGATIVE (NEGATIVE); SODIUM LEVEL 140 MMOL/L (136-145); TOTAL PROTEIN 6.8 G/DL (5.7-8.2)
[2023-11-09 11:12] LABS: FREE T4 0.93 NG/DL (0.89-1.76); THYROID STIMULATING HORMONE 3.144 uIU/ML (0.55-4.78)
[2023-11-09 11:19] LABS: CPK CREATINE PHOSPHOKINASE 71 U/L (34-145)
[2023-11-09 12:24] LABS: CK-MB VALUE MASS < 1.0 NG/ML (<3.6)
[2023-11-09 12:30] LABS: CPK CREATINE PHOSPHOKINASE 57 U/L (34-145); MB/CK RELATIVE INDEX 1.75 (< OR =4)
[2023-11-09] MEDS ORDERED: POTASSIUM CHLORIDE 10MEQ SR TABLET PO ONE (13:00)
[2023-11-09 13:16] VITALS: O2SAT 100
[2023-11-09 14:27] VITALS: BP 129/63; TEMP 97.4; O2SAT 99
== END 2023-11-09 14:45 | disposition home or self-care (01) ==
LOC: EDBD 09:26 → M ED 09:26
DX: R94.4 Abnormal results of kidney function studies (principal); I10 Essential (primary) hypertension; J44.9 Chronic obstructive pulmonary disease, unspecified; I50.9 Heart failure, unspecified; D47.2 Monoclonal gammopathy; Z79.899 Other long term (current) drug therapy; Z88.1 Allergy status to other antibiotic agents; Z88.8 Allergy status to other drugs, medicaments and biological substances

== ENCOUNTER → 2023-11-09 | Outpatient (REF) | payer MEDICARE, MEDICAID ==
[2023-11-10 08:53] LABS: MAGNESIUM LEVEL 1.9 MG/DL (1.8-2.4)
[2023-11-10 08:54] LABS: PTH INTACT 90.8 PG/ML (18.5-88.0)
[2023-11-11 09:32] LABS: PERCENT SATURATION 23.5 % (13.2-45.0)
== END ==
LOC: M LAB REF 08:26
PROVIDERS: ATTEND Internal Medicine Nephrology
DX: N25.81 Secondary hyperparathyroidism of renal origin (principal); E83.42 Hypomagnesemia; D50.9 Iron deficiency anemia, unspecified

== ENCOUNTER → 2023-11-18 | Outpatient (CLI) | payer MEDICARE, MEDICAID | LOC: M RAD 08:53 | PROVIDERS: ATTEND Internal Medicine Nephrology | DX: N18.4 Chronic kidney disease, stage 4 (severe) (principal); I70.1 Atherosclerosis of renal artery ==

== ENCOUNTER → 2024-03-01 | Outpatient (REF) | payer MEDICARE ==
[~2024-03-01] MED LIST changes: +ACET250T18 PO; -ACET250T2 PO; +HYDR-161 PO
[2024-03-01 17:48] LABS: HEMATOCRIT 40.6 % (36.0-47.0); HEMOGLOBIN 12.9 g/dl (12.0-15.5); MEAN CORPUSCULAR HEMOGLOBIN 31.9 pg (27.0-33.0); MEAN CORPUSCULAR HGB CONC 31.8 g/dl (32.0-36.5); MEAN CORPUSCULAR VOLUME 100.5 fl (80.0-96.0); PLATELET COUNT, AUTOMATED 259 10^3/uL (150-450); RED BLOOD COUNT 4.04 10^6/uL (4.00-5.40); WHITE BLOOD COUNT 5.8 10^3/uL (4.0-10.0)
[2024-03-01 18:03] LABS: HEMOGLOBIN A1c 5.6 % (4.0-6.0)
[2024-03-01 18:12] LABS: FREE T4 1.03 NG/DL (0.89-1.76)
[2024-03-01 18:13] LABS: ALBUMIN 3.4 G/DL (3.2-5.2); ALKALINE PHOSPHATASE 166 U/L (46-116); ALT/SGPT < 9 U/L (7.0-40); AST/SGOT 14 U/L (<34); BILIRUBIN,TOTAL 0.2 MG/DL (0.3-1.2); BLOOD UREA NITROGEN 9 MG/DL (9-23); CALCIUM LEVEL 9.3 MG/DL (8.5-10.1); CARBON DIOXIDE LEVEL 35 MMOL/L (20-31); CHLORIDE LEVEL 93 MMOL/L (98-107); CREATININE FOR GFR 1.18 MG/DL (0.55-1.30); GLOMERULAR FILTRATION RATE 50.1 (>51); GLUCOSE, FASTING 96 MG/DL (60-100); POTASSIUM SERUM 3.4 MMOL/L (3.5-5.1); SODIUM LEVEL 134 MMOL/L (136-145); THYROID STIMULATING HORMONE 2.958 uIU/ML (0.55-4.78)
== END ==
LOC: M SFHCADAM 12:04
PROVIDERS: ATTEND Family Medicine
DX: R63.4 Abnormal weight loss (principal); N18.32 Chronic kidney disease, stage 3b; I50.32 Chronic diastolic (congestive) heart failure; Z79.899 Other long term (current) drug therapy

== ENCOUNTER → 2024-03-01 | Outpatient (CLI) | payer MEDICARE | LOC: M ADAMS 12:06 | PROVIDERS: ATTEND Family Medicine | DX: R63.4 Abnormal weight loss (principal); I50.32 Chronic diastolic (congestive) heart failure ==

== ENCOUNTER 2024-03-28 07:52 | Emergency (ER) | payer MEDICARE, MEDICAID ==
[~2024-03-28] VITALS: Ht 154.9 cm; Wt 56.7 kg
[2024-03-28 09:14] VITALS: TEMP 99.2
[2024-03-28] MEDS ORDERED: methylPREDNISolone 125MG 2ML VIAL IV ONE (09:15)
[2024-03-28 09:54] LABS: BASO % 0.3 % (0.0-1.0); EOS # 0.1 10^3/uL (0.0-0.5); EOS % 1.9 % (0.0-3.0); HEMATOCRIT 36.6 % (36.0-47.0); HEMOGLOBIN 11.7 g/dl (12.0-15.5); LYMPH # 1.1 10^3/uL (1.5-5.0); LYMPH % 16.6 % (24.0-44.0); MEAN CORPUSCULAR HEMOGLOBIN 31.8 pg (27.0-33.0); MEAN CORPUSCULAR VOLUME 99.5 fl (80.0-96.0); MONO # 0.3 10^3/uL (0.0-0.8); MONO % 3.7 % (2.0-8.0); NEUTROPHILS # 5.1 10^3/uL (1.5-8.5); NEUTROPHILS % 77.1 % (36.0-66.0); PLATELET COUNT, AUTOMATED 193 10^3/uL (150-450); RED BLOOD COUNT 3.68 10^6/uL (4.00-5.40); WHITE BLOOD COUNT 6.7 10^3/uL (4.0-10.0)
[2024-03-28] MEDS: BENZONATATE 100MG CAPSULE PO ONE (10:10)
[2024-03-28] MEDS: methylPREDNISolone 125MG 2ML VIAL IM ONE (10:17)
[2024-03-28 10:22] LABS: BLOOD UREA NITROGEN 8 MG/DL (9-23); CALCIUM LEVEL 8.8 MG/DL (8.5-10.1); CARBON DIOXIDE LEVEL 34 MMOL/L (20-31); CHLORIDE LEVEL 97 MMOL/L (98-107); CPK CREATINE PHOSPHOKINASE 62 U/L (34-145); CREATININE FOR GFR 1.07 MG/DL (0.55-1.30); GLOMERULAR FILTRATION RATE 56.1 (>51); GLUCOSE, FASTING 101 MG/DL (60-100); POTASSIUM SERUM 3.4 MMOL/L (3.5-5.1); SODIUM LEVEL 137 MMOL/L (136-145)
[2024-03-28 10:23] LABS: CK-MB VALUE MASS < 1.0 NG/ML (<3.6); MB/CK RELATIVE INDEX 1.61 (< OR =4)
[2024-03-28] MEDS: IPRATROPIUM 0.5MG/ALBUTEROL 2.5MG INH SOL UD 3ML (DUONEB) NEB PRN (10:28)
[2024-03-28] MEDS ORDERED: PRED20TA PO (11:17)
[2024-03-28] MEDS ORDERED: BENZ200C70 PO (11:17)
[2024-03-28] MEDS ORDERED: AMOX875T2 PO (11:17)
[2024-03-28 11:50] VITALS: BP 131/64; O2SAT 97
== END 2024-03-28 11:52 | disposition home or self-care (01) ==
LOC: M ED 07:52 → EDBD 07:52 → M ED 11:52
DX: J44.1 Chronic obstructive pulmonary disease with (acute) exacerbation (principal); I50.22 Chronic systolic (congestive) heart failure; E78.5 Hyperlipidemia, unspecified; I11.0 Hypertensive heart disease with heart failure; F17.210 Nicotine dependence, cigarettes, uncomplicated; Z88.8 Allergy status to other drugs, medicaments and biological substances; Z79.51 Long term (current) use of inhaled steroids; Z79.2 Long term (current) use of antibiotics; Z79.52 Long term (current) use of systemic steroids; Z79.899 Other long term (current) drug therapy
CPT/HCPCS: 71046; 80048; 82550; 82553; 83880; 84484; 85025; 87486; 87581; 87633; 87798; 87880; 93005; 94640; 96372; 99284; J2919

== ENCOUNTER → 2024-05-06 | Outpatient (CLI) | payer MEDICARE, MEDICAID ==
[~2024-05-06] MED LIST changes: +AMOX875T2 PO; +BENZ200C70 PO; +DOXY-440 PO; -DOXY-444 PO
[2024-05-06 19:55] LABS: BASO % 0.2 % (0.0-1.0); HEMATOCRIT 41.7 % (36.0-47.0); HEMOGLOBIN 13.3 g/dl (12.0-15.5); LYMPH # 1.1 10^3/uL (1.5-5.0); LYMPH % 6.3 % (24.0-44.0); MEAN CORPUSCULAR HEMOGLOBIN 32.4 pg (27.0-33.0); MEAN CORPUSCULAR HGB CONC 31.9 g/dl (32.0-36.5); MEAN CORPUSCULAR VOLUME 101.7 fl (80.0-96.0); MONO # 0.8 10^3/uL (0.0-0.8); MONO % 4.5 % (2.0-8.0); NEUTROPHILS # 15.1 10^3/uL (1.5-8.5); NEUTROPHILS % 87.7 % (36.0-66.0); PLATELET COUNT, AUTOMATED 218 10^3/uL (150-450); WHITE BLOOD COUNT 17.2 10^3/uL (4.0-10.0)
[2024-05-06 20:11] LABS: CALCIUM LEVEL 9.5 MG/DL (8.5-10.1); CREATININE FOR GFR 1.34 MG/DL (0.55-1.30); GLOMERULAR FILTRATION RATE 43.2 (>51); POTASSIUM SERUM 3.7 MMOL/L (3.5-5.1)
== END ==
LOC: M PLALAB 15:01
PROVIDERS: ATTEND Physician Assistant
DX: J44.1 Chronic obstructive pulmonary disease with (acute) exacerbation (principal)

== ENCOUNTER → 2024-08-29 | Outpatient (CLI) | payer MEDICARE, MEDICAID | LOC: M WHC 10:10 | PROVIDERS: ATTEND Nurse Practitioner Family | DX: Z12.31 Encounter for screening mammogram for malignant neoplasm of breast (principal) ==

== ENCOUNTER → 2024-09-29 | Outpatient (CLI) | payer MEDICARE, MEDICAID ==
[~2024-09-29] MED LIST changes: +BUDE10.32; +NYST1POW3 TOP; -NYST1POW9 TOP
== END ==
LOC: M ADAMS 15:47
PROVIDERS: ATTEND Physician Assistant
DX: M46.96 Unspecified inflammatory spondylopathy, lumbar region (principal); M25.551 Pain in right hip; Z91.81 History of falling; M54.50 Low back pain, unspecified; R53.1 Weakness

== ENCOUNTER → 2024-09-30 | Outpatient (CLI) | payer MEDICARE, MEDICAID ==
[~2024-09-30] MED LIST changes: -NYST1POW3 TOP; +NYST1POW9 TOP
[2024-09-30 11:20] LABS: BASO % 0.4 % (0.0-1.0); EOS # 0.2 10^3/uL (0.0-0.5); EOS % 2.9 % (0.0-3.0); HEMATOCRIT 35.7 % (36.0-47.0); HEMOGLOBIN 11.4 g/dl (12.0-15.5); LYMPH % 18.8 % (24.0-44.0); MEAN CORPUSCULAR HEMOGLOBIN 33.2 pg (27.0-33.0); MEAN CORPUSCULAR HGB CONC 31.9 g/dl (32.0-36.5); MEAN CORPUSCULAR VOLUME 104.1 fl (80.0-96.0); MONO # 0.3 10^3/uL (0.0-0.8); MONO % 4.8 % (2.0-8.0); NEUTROPHILS # 3.8 10^3/uL (1.5-8.5); NEUTROPHILS % 72.9 % (36.0-66.0); PLATELET COUNT, AUTOMATED 183 10^3/uL (150-450); RED BLOOD COUNT 3.43 10^6/uL (4.00-5.40); WHITE BLOOD COUNT 5.2 10^3/uL (4.0-10.0)
[2024-09-30 11:22] LABS: ALBUMIN 3.2 G/DL (3.2-5.2); ALKALINE PHOSPHATASE 140 U/L (35-104); ALT/SGPT < 9 U/L (7.0-40); AST/SGOT 11 U/L (<34); BILIRUBIN,TOTAL 0.2 MG/DL (0.3-1.2); BLOOD UREA NITROGEN 9 MG/DL (9-23); CALCIUM LEVEL 9.6 MG/DL (8.5-10.1); CARBON DIOXIDE LEVEL 34 MMOL/L (20-31); CHLORIDE LEVEL 105 MMOL/L (98-107); CREATININE FOR GFR 1.01 MG/DL (0.55-1.30); FOLATE 4.2 NG/ML (>5.4); GLOMERULAR FILTRATION RATE 59.7 (>51); GLUCOSE, FASTING 106 MG/DL (60-100); POTASSIUM SERUM 4.1 MMOL/L (3.5-5.1); SODIUM LEVEL 140 MMOL/L (136-145); TOTAL PROTEIN 6.6 G/DL (5.7-8.2); VITAMIN B12 LEVEL 384 PG/ML (211-911)
== END ==
LOC: M PLALAB 07:22
PROVIDERS: ATTEND Physician Assistant
DX: Z91.81 History of falling (principal); M25.551 Pain in right hip; R53.1 Weakness; M54.50 Low back pain, unspecified

== ENCOUNTER → 2024-09-30 | Outpatient (CLI) | payer MEDICARE, MEDICAID ==
[2024-09-30 11:18] LABS: ALBUMIN 3.2 G/DL (3.2-5.2); ALKALINE PHOSPHATASE 138 U/L (35-104); ALT/SGPT < 9 U/L (7.0-40); AST/SGOT 12 U/L (<34); BILIRUBIN,TOTAL 0.2 MG/DL (0.3-1.2); BLOOD UREA NITROGEN 9 MG/DL (9-23); CALCIUM LEVEL 9.6 MG/DL (8.5-10.1); CARBON DIOXIDE LEVEL 33 MMOL/L (20-31); CHLORIDE LEVEL 106 MMOL/L (98-107); CHOLESTEROL LEVEL 157 MG/DL (<200); CHOLESTEROL RISK RATIO 3.04 (<5); CREATININE FOR GFR 1.04 MG/DL (0.55-1.30); GLOMERULAR FILTRATION RATE 57.7 (>51); GLUCOSE, FASTING 106 MG/DL (60-100); HDL CHOLESTEROL 51.5 MG/DL (>40); LDL CHOLESTEROL 86.7 MG/DL (<100); NON-HDL-C 105.5 MG/DL; POTASSIUM SERUM 4.2 MMOL/L (3.5-5.1); SODIUM LEVEL 139 MMOL/L (136-145); TOTAL PROTEIN 6.5 G/DL (5.7-8.2); TRIGLYCERIDES LEVEL 94 MG/DL (<150)
== END ==
LOC: M PLALAB 07:21
PROVIDERS: ATTEND Physician Assistant
DX: E78.2 Mixed hyperlipidemia (principal); I27.81 Cor pulmonale (chronic); I50.32 Chronic diastolic (congestive) heart failure

== ENCOUNTER 2024-10-04 07:48 | Day surgery (SDC) | payer MEDICARE, MEDICAID ==
[~2024-10-04] VITALS: Ht 157.5 cm; Wt 59.1 kg
[~2024-10-04 07:48] MED LIST changes: +NS 250 ML IV ONE
[2024-10-04] MEDS ORDERED: LIDOCAINE 2% 100MG/5ML SDV (FOR ANES.) As Ordered ONE (09:12)
[2024-10-04] MEDS ORDERED: propofoL 200 MG/20 ML VIAL As Ordered ONE (09:12)
[2024-10-04] MEDS ORDERED: ePHEDrine SULFATE 25 MG/5 ML(5MG/ML) SYRINGE As Ordered ONE (09:15)
[2024-10-04 09:35] VITALS: BP 118/56; TEMP 98; O2SAT 100
== END 2024-10-04 09:59 | disposition home or self-care (01) ==
LOC: M OPP 07:48
PROVIDERS: ATTEND Internal Medicine Gastroenterology
DX: K22.2 Esophageal obstruction (principal); Q39.4 Esophageal web; I11.0 Hypertensive heart disease with heart failure; I50.9 Heart failure, unspecified; E78.5 Hyperlipidemia, unspecified; K21.9 Gastro-esophageal reflux disease without esophagitis; F41.9 Anxiety disorder, unspecified; F32.A Depression, unspecified; M19.90 Unspecified osteoarthritis, unspecified site; J44.9 Chronic obstructive pulmonary disease, unspecified; J43.9 Emphysema, unspecified; F17.210 Nicotine dependence, cigarettes, uncomplicated; Z99.89 Dependence on other enabling machines and devices; Z88.1 Allergy status to other antibiotic agents; Z88.8 Allergy status to other drugs, medicaments and biological substances; Z79.51 Long term (current) use of inhaled steroids; Z79.899 Other long term (current) drug therapy
CPT/HCPCS: 43239; 43249; 88305; A4649

== ENCOUNTER → 2024-10-11 | Outpatient (CLI) | payer MEDICARE, MEDICAID ==
[~2024-10-11] MED LIST changes: -NS 250 ML IV ONE; +NYST1POW3 TOP; -NYST1POW9 TOP
== END ==
LOC: M RAD 06:01
PROVIDERS: ATTEND Internal Medicine Pulmonary Disease
DX: Z87.891 Personal history of nicotine dependence (principal)

== ENCOUNTER → 2025-01-24 | Outpatient (CLI) | payer MEDICARE, MEDICAID ==
[2025-01-24 11:17] LABS: CALCIUM LEVEL 8.7 MG/DL (8.5-10.1); CREATININE FOR GFR 1.02 MG/DL (0.55-1.30); POTASSIUM SERUM 4.6 MMOL/L (3.5-5.1)
== END ==
LOC: M PLALAB 08:28
PROVIDERS: ATTEND Physician Assistant
DX: I27.81 Cor pulmonale (chronic) (principal)

== ENCOUNTER 2025-01-28 09:20 | Emergency (ER) | payer MEDICARE, MEDICAID ==
[~2025-01-28] VITALS: Ht 157.5 cm; Wt 61.3 kg
[2025-01-28] MEDS: NS (Normal Saline) 0.9% 1,000 ML IV ONE (11:27)
[2025-01-28 11:37] LABS: BASO % 0.4 % (0.0-1.0); EOS # 0.2 10^3/uL (0.0-0.5); EOS % 3.3 % (0.0-3.0); HEMATOCRIT 37.3 % (36.0-47.0); HEMOGLOBIN 11.7 g/dl (12.0-15.5); LYMPH # 1.5 10^3/uL (1.5-5.0); LYMPH % 27.4 % (24.0-44.0); MEAN CORPUSCULAR HEMOGLOBIN 32.5 pg (27.0-33.0); MEAN CORPUSCULAR HGB CONC 31.4 g/dl (32.0-36.5); MEAN CORPUSCULAR VOLUME 103.6 fl (80.0-96.0); MONO # 0.3 10^3/uL (0.0-0.8); MONO % 5.6 % (2.0-8.0); NEUTROPHILS # 3.4 10^3/uL (1.5-8.5); NEUTROPHILS % 63.1 % (36.0-66.0); PLATELET COUNT, AUTOMATED 176 10^3/uL (150-450); WHITE BLOOD COUNT 5.4 10^3/uL (4.0-10.0)
[2025-01-28 11:40] LABS: KETONE, URINE AUTO RFX NEGATIVE (NEGATIVE); NITRITE, URINE AUTO RFX NEGATIVE (NEGATIVE); RBC, URINE AUTO RFX 0 /HPF (0-3); SQUAM EPITHELIAL CELL UR AURFX 2 /HPF (0-6)
[2025-01-28 11:42] LABS: LEUKOCYTE ESTERASE UR AUTO RFX 3+ (NEGATIVE); WBC, URINE AUTO RFX 40 /HPF (0-3)
[2025-01-28 12:08] LABS: LIPASE 52 U/L (12-53)
[2025-01-28 12:10] LABS: ALBUMIN 3.3 G/DL (3.2-5.2); ALKALINE PHOSPHATASE 145 U/L (35-104); ALT/SGPT 11 U/L (7.0-40); AST/SGOT 23 U/L (<34); BILIRUBIN,DIRECT < 0.1 MG/DL (<0.4); BILIRUBIN,TOTAL 0.2 MG/DL (0.3-1.2); BLOOD UREA NITROGEN 7 MG/DL (9-23); CALCIUM LEVEL 8.7 MG/DL (8.5-10.1); CARBON DIOXIDE LEVEL 33 MMOL/L (20-31); CHLORIDE LEVEL 102 MMOL/L (98-107); CREATININE FOR GFR 0.96 MG/DL (0.55-1.30); GLOMERULAR FILTRATION RATE > 60.0 (>51); GLUCOSE, FASTING 101 MG/DL (60-100); POTASSIUM SERUM 4.9 MMOL/L (3.5-5.1); SODIUM LEVEL 140 MMOL/L (136-145)
[2025-01-28] MEDS: ACETAMINOPHEN *IV* 1,000 MG in IV 1 EA IV ONE (12:26)
[2025-01-28] MEDS ORDERED: CEFD300CAP PO (13:02)
[2025-01-28 13:09] VITALS: BP 143/67; TEMP 97.5; O2SAT 100
[2025-01-28] MEDS: CEFDINIR 300 MG CAP (OMNICEF) PO ONE (13:11)
== END 2025-01-28 13:15 | disposition home or self-care (01) ==
LOC: M ED 09:20
DX: N39.0 Urinary tract infection, site not specified (principal); R10.9 Unspecified abdominal pain; N18.9 Chronic kidney disease, unspecified; I50.22 Chronic systolic (congestive) heart failure; I11.0 Hypertensive heart disease with heart failure; J44.9 Chronic obstructive pulmonary disease, unspecified; Z88.1 Allergy status to other antibiotic agents; Z88.8 Allergy status to other drugs, medicaments and biological substances; Z79.51 Long term (current) use of inhaled steroids; Z79.2 Long term (current) use of antibiotics; Z79.899 Other long term (current) drug therapy
CPT/HCPCS: 74176; 80048; 80076; 81001; 83690; 85025; 87088; 87186; 94760; 96361; 96365; 99284; J0131

== ENCOUNTER → 2025-02-22 | Outpatient (REF) | payer MEDICARE ==
[~2025-02-22] MED LIST changes: +CEFD300CAP PO
[2025-02-22 17:43] LABS: CALCIUM LEVEL 9.5 MG/DL (8.5-10.1); CREATININE FOR GFR 1.14 MG/DL (0.55-1.30); GLOMERULAR FILTRATION RATE 51.9 (>51); MAGNESIUM LEVEL 2.1 MG/DL (1.8-2.4); POTASSIUM SERUM 4.1 MMOL/L (3.5-5.1)
[2025-02-22 17:48] LABS: FREE T4 1.12 NG/DL (0.89-1.76); THYROID STIMULATING HORMONE 2.039 uIU/ML (0.55-4.78)
[2025-02-22 17:49] LABS: FOLATE 6.1 NG/ML (>5.4)
[2025-02-22 17:56] LABS: HEMOGLOBIN A1c 5.3 % (4.0-6.0)
== END ==
LOC: M SFHCADAM 11:24
PROVIDERS: ATTEND Physician Assistant
DX: I27.29 Other secondary pulmonary hypertension (principal); N18.32 Chronic kidney disease, stage 3b; G57.92 Unspecified mononeuropathy of left lower limb; E87.6 Hypokalemia; Z79.899 Other long term (current) drug therapy

== ENCOUNTER 2025-04-18 09:41 | Emergency (ER) | payer MEDICARE, MEDICAID ==
[~2025-04-18] VITALS: Ht 157.5 cm; Wt 66.3 kg
[~2025-04-18 09:41] MED LIST changes: -NYST-13 TOP; +NYST0.1C TOP
[2025-04-18 10:44] LABS: BASO % 0.5 % (0.0-1.0); EOS # 0.2 10^3/uL (0.0-0.5); EOS % 3.7 % (0.0-3.0); HEMATOCRIT 34.5 % (36.0-47.0); LYMPH # 1.1 10^3/uL (1.5-5.0); MEAN CORPUSCULAR HEMOGLOBIN 32.6 pg (27.0-33.0); MEAN CORPUSCULAR HGB CONC 31.9 g/dl (32.0-36.5); MEAN CORPUSCULAR VOLUME 102.4 fl (80.0-96.0); MONO # 0.3 10^3/uL (0.0-0.8); MONO % 6.3 % (2.0-8.0); NEUTROPHILS # 2.8 10^3/uL (1.5-8.5); NEUTROPHILS % 64.3 % (36.0-66.0); PLATELET COUNT, AUTOMATED 178 10^3/uL (150-450); RED BLOOD COUNT 3.37 10^6/uL (4.00-5.40); WHITE BLOOD COUNT 4.3 10^3/uL (4.0-10.0)
[2025-04-18 11:20] LABS: BLOOD UREA NITROGEN 8 MG/DL (9-23); CALCIUM LEVEL 8.7 MG/DL (8.5-10.1); CARBON DIOXIDE LEVEL 32 MMOL/L (20-31); CHLORIDE LEVEL 101 MMOL/L (98-107); GLOMERULAR FILTRATION RATE 73.6 (>51); GLUCOSE, FASTING 101 MG/DL (60-100); POTASSIUM SERUM 5.1 MMOL/L (3.5-5.1); SODIUM LEVEL 138 MMOL/L (136-145)
[2025-04-18] MEDS ORDERED: POTA-150 PO (11:54)
[2025-04-18] MEDS ORDERED: FOLI1TAB11 PO (11:54)
[2025-04-18] MEDS ORDERED: HOME MED LIST COMPLETE! XX SCH (11:55)
[2025-04-18] MEDS ORDERED: LINZ72CA PO (11:58)
[2025-04-18] MEDS ORDERED: DEBR6.5S4 AU (13:49)
[2025-04-18 14:15] VITALS: BP 165/70; TEMP 98.5; O2SAT 98
== END 2025-04-18 14:55 | disposition home or self-care (01) ==
LOC: EDBD 09:41 → M ED 09:41
DX: R42 Dizziness and giddiness (principal); J44.9 Chronic obstructive pulmonary disease, unspecified; H61.23 Impacted cerumen, bilateral; I50.22 Chronic systolic (congestive) heart failure; I11.0 Hypertensive heart disease with heart failure; E78.5 Hyperlipidemia, unspecified; N18.30 Chronic kidney disease, stage 3 unspecified; F17.210 Nicotine dependence, cigarettes, uncomplicated; F41.9 Anxiety disorder, unspecified; F32.A Depression, unspecified; Z88.1 Allergy status to other antibiotic agents; Z88.8 Allergy status to other drugs, medicaments and biological substances; Z79.51 Long term (current) use of inhaled steroids; Z79.899 Other long term (current) drug therapy

== ENCOUNTER 2025-08-11 08:23 | Day surgery (SDC) | payer MEDICARE, MEDICAID ==
[~2025-08-11] VITALS: Ht 157.5 cm; Wt 63.5 kg
[~2025-08-11 08:23] MED LIST changes: -ACE65ERTAB PO; +ACET-1593 PO; +DEBR6.5S4 AU; +FOLI1TAB11 PO; +LINZ72CA PO; +POTA-150 PO
[2025-08-11] MEDS ORDERED: LIDOCAINE 2% 100 MG/5 ML SDV (FOR ANES.) As Ordered ONE (09:51)
[2025-08-11 09:54] VITALS: TEMP 97.8
[2025-08-11 10:20] VITALS: BP 164/88; O2SAT 99
== END 2025-08-11 10:30 | disposition home or self-care (01) ==
LOC: M OPP 08:23
PROVIDERS: ATTEND Internal Medicine Gastroenterology
DX: K22.2 Esophageal obstruction (principal); R13.10 Dysphagia, unspecified; Z88.1 Allergy status to other antibiotic agents; Z88.8 Allergy status to other drugs, medicaments and biological substances; Z79.899 Other long term (current) drug therapy; J44.9 Chronic obstructive pulmonary disease, unspecified; Z99.81 Dependence on supplemental oxygen; F17.210 Nicotine dependence, cigarettes, uncomplicated

== ENCOUNTER → 2025-08-30 | Outpatient (CLI) | payer MEDICARE, MEDICAID | LOC: M WHC 08:46 | PROVIDERS: ATTEND Nurse Practitioner Family | DX: Z12.31 Encounter for screening mammogram for malignant neoplasm of breast (principal); M81.0 Age-related osteoporosis without current pathological fracture ==

== ENCOUNTER → 2025-09-14 | Outpatient (CLI) | payer MEDICARE, MEDICAID ==
[~2025-09-14] MED LIST changes: +FERR325T3 PO; +VITA500C24 PO
[2025-09-14 11:30] LABS: CALCIUM LEVEL 9.1 MG/DL (8.3-10.6); CARBON DIOXIDE LEVEL 36.0 MMOL/L (20-31); CHLORIDE LEVEL 98.0 MMOL/L (98-107); CREATININE FOR GFR 0.95 MG/DL (0.55-1.30); GLOMERULAR FILTRATION RATE 68.6 (>45); POTASSIUM SERUM 4.7 MMOL/L (3.5-5.1); SODIUM LEVEL 142.0 MMOL/L (136-145)
== END ==
LOC: M PLALAB 09:07
PROVIDERS: ATTEND Physician Assistant
DX: I27.81 Cor pulmonale (chronic) (principal); I50.32 Chronic diastolic (congestive) heart failure

== ENCOUNTER → 2025-10-23 | Outpatient (CLI) | payer MEDICARE, MEDICAID ==
[~2025-10-23] MED LIST changes: +ACET-1387 PO; -ACET-1593 PO; +PROHANCE 279.3MG/ML 15ML VIAL As Ordered ONE
== END ==
LOC: M RAD 15:30
PROVIDERS: ATTEND Physician Assistant
DX: R42 Dizziness and giddiness (principal); H93.13 Tinnitus, bilateral
CPT/HCPCS: 70544; 70547; 70553; A9579